=== PATIENT | male | born 1940 | race Caucasian/White ===

== ENCOUNTER 2017-06-26 10:08 | Inpatient (IN) | payer OTHER, MEDICARE ==
[~2017-06-26] VITALS: Ht 180.3 cm; Wt 120.6 kg
[~2017-06-26 10:08] MED LIST: ACT30 PO; ALBU1AER9 PO; ALPR1TAB3 PO; AMLO-110 PO; ASPI-560 PO; ATEN100T8 PO; ATOR-54 PO; FENO145T26 PO; FLUT1SPR12 NAE; GLIM2TAB2 PO; IPRASOL4 INH; MIRT15TA53 PO; PARO1TAB29 PO; SALI-3; SYN100 PO; TRAM-10 PO; UMEC1INH PO
[2017-06-26] MEDS ORDERED: ALBUT/IPRATROP 3MG/0.5MG NEB 3 ML VIAL INH STA ×2 (10:32→13:07)
[2017-06-26] MEDS ORDERED: LEVAQUIN 750MG / 150ML D5W IV STA (10:32)
[2017-06-26 11:12] LABS: BASO % 0.1 %; BASO ABS # 0.02 K/uL (0-0.2); EOS % 0.3 %; EOS ABS # 0.04 K/uL (0-0.5); HEMATOCRIT 32.7 % (42-52); HEMOGLOBIN 10.8 g/dL (14.0-18.0); IG# 0.07 K/uL (0.00-0.02); LYMPH % 14.7 %; LYMPH ABS # 2.06 K/uL (1.2-3.4); MEAN PLATELET VOLUME 10.6 fL (7.4-10.4); MONO % 5.8 %; MONO ABS # 0.81 K/uL (0.11-0.59); NEUT % 78.6 %; NEUT ABS # 11.04 K/uL (1.4-6.5); PLATELET COUNT 298 K/uL (130-400); RED CELL DISTRIBUTION WIDTH CV 13.8 % (11.5-14.5); RED CELL DISTRIBUTION WIDTH SD 47.9 fL (36.4-46.3); WHITE BLOOD COUNT 14.04 K/uL (4.8-10.8)
--- NOTE | 2017-06-26 11:35 | DIAGNOSTIC IMAGING REPORT ---
CHEST ONE VIEW PORTABLE HISTORY: Evaluate Fever/Sepsis COMPARISON: Chest 10/17/2015. FINDINGS: Small patchy density within the left lung base. The right lung is clear. Mild elevation the right hemidiaphragm, unchanged. The heart is normal in size. No pleural effusions. No pneumothorax. IMPRESSION: Small patchy density at the left lung base. This may represent a developing pneumonia. Electronically signed by: Marko France M.D. 06/26/2017 11:33 AM Dictated Date/Time: 06/26/2017 11:31 AM
[2017-06-26 11:43] LABS: ALBUMIN 2.4 gm/dl (3.4-5.0); ALKALINE PHOSPHATASE 53 U/L (45-117); ALT/SGPT 20 U/L (12-78); BLOOD UREA NITROGEN 45 mg/dl (7-18); CALCIUM 9.8 mg/dl (8.5-10.1); CARBON DIOXIDE 31 mmol/L (21-32); CKMB 1.2 ng/ml (0.5-3.6); CREATININE 2.46 mg/dl (0.60-1.40); GLUCOSE 227 mg/dl (70-99); SODIUM 131 mmol/L (136-145); TOTAL PROTEIN 7.2 gm/dl (6.4-8.2)
[2017-06-26] MEDS ORDERED: ASPI81TA28 PO (11:47)
[2017-06-26] MEDS ORDERED: ARFO15NE INH (11:47)
[2017-06-26] MEDS ORDERED: PLMINSR5 INH (11:52)
[2017-06-26] MEDS ORDERED: CHOL1CAP67 PO (11:52)
[2017-06-26] MEDS ORDERED: ALBU18002 INH (11:52)
[2017-06-26] MEDS ORDERED: OXGN (11:52)
[2017-06-26 12:29] LABS: INFLUENZA B ANTIGEN Neg for Influ B (NEG)
[2017-06-26 13:50] VITALS: O2SAT 91; Ht 180.3 cm; Wt 120.6 kg
[2017-06-26] MEDS ORDERED: GLUCOSE 10 TABS/TUBE PO PRN (14:15)
[2017-06-26] MEDS ORDERED: ACETAMINOPHEN 325 MG TAB PO PRN (14:15)
[2017-06-26] MEDS ORDERED: GLUCAGON FOR INJ 1 MG VIAL SQ PRN (14:15)
[2017-06-26] MEDS ORDERED: GLUCOSE 40% GEL 15 GM TUBE PO PRN (14:15)
[2017-06-26] MEDS ORDERED: ONDANSETRON INJ 2 MG/ML 2 ML VIAL IV PRN (14:15)
[2017-06-26 14:22] LABS: INR 1.2 (0.9-1.1); PTT PATIENT 32.4 SECONDS (21.0-31.0)
[2017-06-26 14:24] LABS: POTASSIUM 4.2 mmol/L (3.5-5.1)
[2017-06-26] MEDS ORDERED: LEVOFLOXACIN CONSULT ACTIVE PRN (14:30)
[2017-06-26] MEDS ORDERED: LPT40 PO (14:32)
[2017-06-26] MEDS ORDERED: ALPRAZOLAM 0.5 MG TAB PO PRN (14:45)
[2017-06-26] MEDS ORDERED: ALBUTEROL HFA 8 GM INHALER INH PRN (14:45)
[2017-06-26] MEDS ORDERED: TRAMADOL HCL 50 MG TAB PO PRN (14:45)
--- NOTE | 2017-06-26 14:55 | History and Physical ---
History & Physical Date & Time of Service: Jun 26, 2017 at 14:39 Chief Complaint: Breathing Difficulty Primary Care Physician: Jayla Yu M.D. History of Present Illness Source: patient, clinic records, hospital records Patient is a 76-year-old male with the PMH significant for moderate COPD (on 3L home O2), DM II, HTN, CKD IV and other medical problems listed below presents with worsening SOB 5 days. At baseline, patient is able to ambulate with cane or walker around home without becoming short of breath. Last week, patient developed a productive cough with green sputum and has noticed progressively worsening dyspnea to the point that it occurs at rest. Patient also has had sore throat and hoarseness but denies fever, chills, lightheadedness, malaise or body aches. Has been using all nebulizers with minimal relief, so patient came to ED for further evaluation. En route to hospital, patient received multiple nebulizer treatments and 125 IV Solu-Medrol from EMS. Reports that he is now able to breathe more easily at rest and speak with less hoarseness. Patient reports falling 3 days ago when getting up from couch to use the restroom. Patient landed on a coffee table, bruising his left periorbital area , left knee and right flank. States that he has felt generally weak lately which may be due to being more sedentary. Denies any LOC or residual headaches or confusion. Is not on anticoagulation. Denies dizziness, visual changes, palpitations, chest pain, abdominal pain, nausea, vomiting, bowel or bladder changes, LE swelling or weight gain. Does endorse decreased appetite and p.o. intake over the last few days. In the ED, patient was found to have a leukocytosis of 14 and a small patchy density at the LLB of his lung consistent with PNA on chest x-ray. Lactic acid mildly elevated at 2.2. Past Medical/Surgical History Medical Problems: Medical Problems: (1) AAA (abdominal aortic aneurysm) Permanent Comment: 3.2cm, stable Status: Chronic (2) CKD (chronic kidney disease), stage IV Status: Chronic (3) COPD (chronic obstructive pulmonary disease) Status: Chronic (4) Depression Status: Chronic (5) DM2 (diabetes mellitus, type 2) Status: Chronic (6) HLD (hyperlipidemia) Status: Chronic (7) HTN (hypertension) Status: Chronic (8) Hypothyroidism Status: Chronic (9) JEANNETTE on CPAP Status: Chronic Surgical Problems: (1) H/O colonoscopy Status: Chronic (2) H/O elbow surgery Status: Chronic (3) H/O knee surgery Status: Chronic (4) H/O sinus surgery Status: Chronic Family History Diabetes mellitus Hypertension Social History Smoking Status: Former Smoker Marital Status: Housing status: lives with family Occupational Status: retired Immunizations History of Influenza Vaccine: Yes Allergies Coded Allergies: No Known Allergies (Verified , 06/26/17) Home Medications Scheduled Amlodipine (Norvasc), 5 MG PO DAILY Arformoterol Tartrate (Brovana), 15 MCG INH Q12 Aspirin (Aspirin Ec), 81 MG PO DAILY Atenolol/Chlorthalidone (Tenoretic 100 Mg/25 Mg), 0.5 TAB PO DAILY Atorvastatin (Lipitor), 1 TAB PO DAILY Budesonide (Pulmicort Respules 0.5MG/2ML), 2 ML INH Q12 Cholecalciferol (Vitamin D-3), 1,000 MG PO DAILY Fenofibrate (Tricor ), 145 MG PO DAILY Glimepiride (Glimepiride), 2 MG PO DAILY Home O2 Therapy (Oxygen), 3 LITERS NA PRN Levothyroxine Sodium (Synthroid), 100 MCG PO DAILY Mirtazapine (Mirtazapine), 15 MG PO HS Paroxetine (Paxil), 40 MG PO DAILY Pioglitazone (Actos), 30 MG PO DAILY Scheduled PRN Albuterol Sulfate (Proair Respiclick), 2 PUFFS INH QID PRN for SOB/Wheezing Alprazolam (Xanax), 1 MG PO HS PRN for Sleep Ipratropium-Albuterol (Duoneb), 3 ML INH QID PRN for SOB/Wheezing Tramadol (Ultram), 50 MG PO DAILY PRN for severe pain Review of Systems Ten systems reviewed and negative except as noted in the HPI. Constitutional: + weakness, + fatigue, No fever, No chills Eyes: No worsening of vision, No diplopia ENT: + sore throat, + problem reported (Hoarseness), No hearing loss, No nasal symptoms Respiratory: + cough, + sputum, + wheezing, + shortness of breath, + dyspnea on exertion, + dyspnea at rest, No hemoptysis Cardiovascular: No chest pain, No orthopnea, No PND, No edema, No palpitations Abdomen: No pain, No nausea, No vomiting, No diarrhea, No constipation Musculoskeletal: No joint pain, No muscle pain Genitourinary - Male: No hematuria, No dysuria Neurologic: No memory loss, No paralysis, No weakness, No numbness/tingling Integumentary: + new/changing skin lesions (Bruising from fall, see HPI) Physical Exam Vital Signs Date Time Temp Pulse Resp B/P (MAP) Pulse Ox O2 Delivery O2 Flow Rate FiO2 06/26/17 13:50 91 Nasal Cannula 5.0 06/26/17 13:00 93 28 130/72 91 Nasal Cannula 5.0 06/26/17 11:39 84 20 121/65 96 Nebulizer 06/26/17 10:17 37.0 94 22 149/69 94 Nasal Cannula 3.0 06/26/17 10:17 98 General Appearance: WD/WN, no apparent distress, + obese Head: normocephalic, atraumatic Eyes: normal inspection, sclerae normal, + pertinent finding (Left periorbital ecchymosis with healing laceration, no drainage) ENT: normal ENT inspection, hearing grossly normal, pharynx normal (Dry mucous membranes), + pertinent finding (Hoarseness) Neck: supple, thyroid normal, trachea midline Respiratory/Chest: chest non-tender, no respiratory distress, no accessory muscle use, + wheezing (Diffuse wheezing in bilateral lung ignacio), + pertinent finding (Saturating appropriately on 3L NC ) Cardiovascular: no murmur, normal peripheral pulses, + tachycardia Abdomen/GI: non tender, soft, no organomegaly, + pertinent finding (Ecchymosis on right flank) Back: normal inspection Extremities/Musculoskelatal: normal inspection, no calf tenderness, no pedal edema, + pertinent finding (Healing laceration on left knee) Neurologic/Psych: no motor/sensory deficits, alert, normal mood/affect, oriented x 3 Skin: normal color, warm/dry Diagnostics Laboratory Results Results Past 24 Hours Test 06/26/17 10:57 06/26/17 11:11 06/26/17 11:45 06/26/17 13:45 Range/Units White Blood Count 14.04 4.8-10.8 K/uL Red Blood Count 3.48 4.7-6.1 M/uL Hemoglobin 10.8 14.0-18.0 g/dL Hematocrit 32.7 42-52 % Mean Corpuscular Volume 94.0 80-100 fL Mean Corpuscular Hemoglobin 31.0 25-34 pg Mean Corpuscular Hemoglobin Concent 33.0 32-36 g/dl Platelet Count 298 130-400 K/uL Mean Platelet Volume 10.6 7.4-10.4 fL Neutrophils (%) (Auto) 78.6 % Lymphocytes (%) (Auto) 14.7 % Monocytes (%) (Auto) 5.8 % Eosinophils (%) (Auto) 0.3 % Basophils (%) (Auto) 0.1 % Neutrophils # (Auto) 11.04 1.4-6.5 K/uL Lymphocytes # (Auto) 2.06 1.2-3.4 K/uL Monocytes # (Auto) 0.81 0.11-0.59 K/uL Eosinophils # (Auto) 0.04 0-0.5 K/uL Basophils # (Auto) 0.02 0-0.2 K/uL RDW Standard Deviation 47.9 36.4-46.3 fL RDW Coefficient of Variation 13.8 11.5-14.5 % Immature Granulocyte % (Auto) 0.5 % Immature Granulocyte # (Auto) 0.07 0.00-0.02 K/uL Sodium Level 131 136-145 mmol/L Potassium Level 3.5-5.1 mmol/L Chloride Level 93 98-107 mmol/L Carbon Dioxide Level 31 21-32 mmol/L Anion Gap 7.0 3-11 mmol/L Blood Urea Nitrogen 45 7-18 mg/dl Creatinine 2.46 0.60-1.40 mg/dl Est Creatinine Clear Calc Drug Dose 33.6 ml/min Estimated GFR () 28.2 Estimated GFR (Non- 24.3 BUN/Creatinine Ratio 18.3 10-20 Random Glucose 227 70-99 mg/dl Calcium Level 9.8 8.5-10.1 mg/dl Total Bilirubin 0.8 0.2-1 mg/dl Direct Bilirubin 0-0.2 mg/dl Aspartate Amino Transf (AST/SGOT) 15-37 U/L Alanine Aminotransferase (ALT/SGPT) 20 12-78 U/L Alkaline Phosphatase 53 45-117 U/L Total Creatine Kinase 39-308 U/L Creatine Kinase MB 1.2 0.5-3.6 ng/ml Creatine Kinase MB Ratio 0-3.0 Troponin I < 0.015 0-0.045 ng/ml Total Protein 7.2 6.4-8.2 gm/dl Albumin 2.4 3.4-5.0 gm/dl Arterial Blood pH 7.38 7.35-7.45 Arterial Blood Partial Pressure CO2 51 35-46 mmHg Arterial Blood Partial Pressure O2 65 80-95 mm/Hg Arterial Blood HCO3 29 19-24 mmol/L Arterial Blood Oxygen Saturation 90.3 90-95 % Arterial Blood Base Excess 3.5 -9-1.8 mEq/L Arterial Blood Gas Delivery 3L Wes Test POS POS Influenza Type A Antigen Neg for Influ A NEG Influenza Type B Antigen Neg for Influ B NEG Lactic Acid Level 2.2 0.4-2.0 mmol/L Test 06/26/17 13:46 Range/Units Prothrombin Time 12.7 9.0-12.0 SECONDS Prothromb Time International Ratio 1.2 0.9-1.1 Activated Partial Thromboplast Time 32.4 21.0-31.0 SECONDS Partial Thromboplastin Ratio 1.2 Potassium Level 4.2 3.5-5.1 mmol/L Direct Bilirubin 0.3 0-0.2 mg/dl Aspartate Amino Transf (AST/SGOT) 20 15-37 U/L Total Creatine Kinase 63 39-308 U/L Microbiology Results 06/26/17 Blood Culture, Received Pending 06/26/17 Blood Culture, Received Pending Diagnostic Radiology CXR: IMPRESSION: Small patchy density at the left lung base. This may represent a developing pneumonia. EKG Sinus rhythm with sinus arrhythmia with occasional Premature ventricular complexes Nonspecific ST abnormality Impression Assessment and Plan Patient is a 76-year-old male with the PMH significant for moderate COPD (on 3L home O2), DM II, HTN, CKD IV and other medical problems listed below presents with worsening SOB 5 days and was found to have LLL PNA. SOB: - 2/2 community acquired PNA, COPD exacerbation -Chronic respiratory failure requiring 3L NC at home -Cont supplemental O2 Community acquired PNA: -Leukocytosis of 14, HR >90 -Technically meets SIRs criteria and sepsis with known pulm infection -However, HR likely elevated from multiple duoneb treatments -Non-toxic in appearance -Lactic acid mildly elevated at 2.2 -IVF resuscitation and repeat lactate -CXR with small patchy density at LLB consistent with PNA -Cont renally dosed levaquin -Blood, sputum cultures pending -Xopenex nebs COPD exacerbation: -Given 125mg IV solumedrol by EMS Continue 40mg Q6 solumedrol -Cont home Brovana neb, albuterol inhaler PRN -Hold pulmicort while giving systemic steroids -Xopenex nebs Hyperglycemia: -In setting of DM II, high dose IV steroids -Hgb A1c of 6 in Mar 2017 -Hold oral agents -SSI per protocol (stress dosed) -BSG checks AC HS Recent mechanical fall: -Denies LOC, headaches, confusion following event 3 days ago -Ecchymoses, laceration healing appropriately -Likely due to deconditioning -PT/OT for eval HTN: -Normotensive -Continue amlodipine, atenolol-chlorthalidone CKD IV: -Cr of 2.46 -Close to baseline (2.3-2.5) -Monitor Mood disorder: -Cont Paxil, xanax PRN HLD: -Cont statin Hypothyroidism: -Cont levothyroxine JEANNETTE: -CPAP HS H/o AAA: -Stable at 3.2 cm Vit D deficiency: -Cont supplement DVT Ppx: SCDs in setting of recent fall Code status: FULL PCP: Aimee Dispo: Admitted to telemetry. Discharge planning ordered. Patient seen in collaboration with Dr. Perez. Please see addendum. ADDENDUM: I have seen and examined the patient and have discussed the case with the provider above. I agree with the assessment and plan as stated. Will also treat him for bacterial conjunctivitis bilaterally, erythromycin has been ordered. DO Chris Advanced Directives Existing Living Will: No Existing Power of Terrazzo Polisher: No Resuscitation Status VTE Prophylaxis Will order VTE Prophylaxis: Yes
--- NOTE | 2017-06-26 15:05 | EMERGENCY ROOM VISIT NOTE ---
History Report prepared by Quin: Diane Saldivar Under the Supervision of: Dr. Sidney Agarwal D.O. First contact with patient: 10:24 Chief Complaint: RESPIRATORY PROBLEMS Stated Complaint: BREATHING DIFFICULTY Nursing Triage Summary: pt to the ED with c/o SOB and producitve cough with green sputum for the past 3 days. pt wears 3lnc baseline pt also fell 3 days ago and states that he stumbled and fell, no LOC, no reports of blood thinners. pt has cut to left side of face with bruising to the periorbital region and a bruise to the right side of abd. 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 He presents to the ED by EMS. He has had a cough producing green sputum. He has a history of COPD. He fell 3 days ago and hit his head. He did not see a doctor after his fall. He has had some fever. He has not been on antibiotics recently. He wears 3 L of oxygen normally. Source of History: patient Onset: 2-3 days ago Position: other (breathing) Quality: other (SOB) Timing: other (persistent) Associated Symptoms: + fevers, + cough Review of Systems See HPI for pertinent positives & negatives. A total of 10 systems reviewed and were otherwise negative. Past Medical & Surgical Medical Problems: (1) AAA (abdominal aortic aneurysm) (2) CKD (chronic kidney disease), stage IV (3) COPD (chronic obstructive pulmonary disease) (4) COPD exacerbation (5) Depression (6) DM2 (diabetes mellitus, type 2) (7) HLD (hyperlipidemia) (8) HTN (hypertension) (9) Hypothyroidism (10) JEANNETTE on CPAP (11) PNA (pneumonia) Surgical Problems: (1) H/O colonoscopy (2) H/O elbow surgery (3) H/O knee surgery (4) H/O sinus surgery Family History Diabetes mellitus Hypertension Social History Smoking Status: Former Smoker Marital Status: Housing Status: lives with significant other Occupation Status: retired Current/Historical Medications Scheduled Amlodipine (Norvasc), 5 MG PO DAILY Arformoterol Tartrate (Brovana), 15 MCG INH Q12 Aspirin (Aspirin Ec), 81 MG PO DAILY Atenolol/Chlorthalidone (Tenoretic 100 Mg/25 Mg), 0.5 TAB PO DAILY Atorvastatin (Lipitor), 1 TAB PO DAILY Budesonide (Pulmicort Respules 0.5MG/2ML), 2 ML INH Q12 Cholecalciferol (Vitamin D-3), 1,000 MG PO DAILY Fenofibrate (Tricor ), 145 MG PO DAILY Glimepiride (Glimepiride), 2 MG PO DAILY Home O2 Therapy (Oxygen), 3 LITERS NA PRN Levothyroxine Sodium (Synthroid), 100 MCG PO DAILY Mirtazapine (Mirtazapine), 15 MG PO HS Paroxetine (Paxil), 40 MG PO DAILY Pioglitazone (Actos), 30 MG PO DAILY Scheduled PRN Albuterol Sulfate (Proair Respiclick), 2 PUFFS INH QID PRN for SOB/Wheezing Alprazolam (Xanax), 1 MG PO HS PRN for Sleep Ipratropium-Albuterol (Duoneb), 3 ML INH QID PRN for SOB/Wheezing Tramadol (Ultram), 50 MG PO DAILY PRN for severe pain Allergies Coded Allergies: No Known Allergies (Verified , 06/26/17) Physical Exam Vital Signs Date Time Temp Pulse Resp B/P (MAP) Pulse Ox O2 Delivery O2 Flow Rate FiO2 06/26/17 14:52 91 20 120/64 90 Nasal Cannula 5.0 06/26/17 13:50 91 Nasal Cannula 5.0 06/26/17 13:00 93 28 130/72 91 Nasal Cannula 5.0 06/26/17 11:39 84 20 121/65 96 Nebulizer 06/26/17 10:17 37.0 94 22 149/69 94 Nasal Cannula 3.0 06/26/17 10:17 98 Physical Exam CONSTITUTIONAL/VITAL SIGNS: Reviewed / noted above. GENERAL: Non-toxic in appearance. INTEGUMENTARY: Warm, dry, and [place]. HEAD: Left periorbital ecchymosis and a healing laceration to the left medial supraorbital area. EYES: without scleral icterus. ENT/OROPHARYNX: clear and moist. LYMPHADENOPATHY/NECK: Is supple without lymphadenopathy or meningismus. RESPIRATORY: Scattered wheezes and rhonchi left greater than right. CARDIOVASCULAR: Regular rate and rhythm. GI/ABDOMEN: Soft and nontender. No organomegaly or pulsatile mass. No rebound or guarding. Normal bowel sounds. EXTREMITIES: Warm and well perfused. BACK: No CVA tenderness. NEUROLOGICAL: Intact without focal deficits. PSYCHIATRIC: normal affect. MUSCULOSKELETAL: Normally developed with good muscle tone. Medical Decision & Procedures ER Provider Diagnostic Interpretation: X ray results and stated below per my interpretation and radiology interpretation. CHEST ONE VIEW PORTABLE HISTORY: Evaluate Fever/Sepsis COMPARISON: Chest 10/17/2015. FINDINGS: Small patchy density within the left lung base. The right lung is clear. Mild elevation the right hemidiaphragm, unchanged. The heart is normal in size. No pleural effusions. No pneumothorax. IMPRESSION: Small patchy density at the left lung base. This may represent a developing pneumonia. Electronically signed by: Marko Farnce M.D. 06/26/2017 11:33 AM Dictated Date/Time: 06/26/2017 11:31 AM Laboratory Results 06/26/17 10:57 Red Blood Count 3.48, Mean Corpuscular Volume 94.0, Mean Corpuscular Hemoglobin 31.0, Mean Corpuscular Hemoglobin Concent 33.0, Mean Platelet Volume 10.6, Neutrophils (%) (Auto) 78.6, Lymphocytes (%) (Auto) 14.7, Monocytes (%) (Auto) 5.8, Eosinophils (%) (Auto) 0.3, Basophils (%) (Auto) 0.1, Neutrophils # (Auto) 11.04, Lymphocytes # (Auto) 2.06, Monocytes # (Auto) 0.81, Eosinophils # (Auto) 0.04, Basophils # (Auto) 0.02 06/26/17 10:57 06/26/17 13:46 Test 06/26/17 10:57 06/26/17 11:11 06/26/17 11:45 06/26/17 13:45 White Blood Count 14.04 K/uL (4.8-10.8) Red Blood Count 3.48 M/uL (4.7-6.1) Hemoglobin 10.8 g/dL (14.0-18.0) Hematocrit 32.7 % (42-52) Mean Corpuscular Volume 94.0 fL (80-100) Mean Corpuscular Hemoglobin 31.0 pg (25-34) Mean Corpuscular Hemoglobin Concent 33.0 g/dl (32-36) Platelet Count 298 K/uL (130-400) Mean Platelet Volume 10.6 fL (7.4-10.4) Neutrophils (%) (Auto) 78.6 % Lymphocytes (%) (Auto) 14.7 % Monocytes (%) (Auto) 5.8 % Eosinophils (%) (Auto) 0.3 % Basophils (%) (Auto) 0.1 % Neutrophils # (Auto) 11.04 K/uL (1.4-6.5) Lymphocytes # (Auto) 2.06 K/uL (1.2-3.4) Monocytes # (Auto) 0.81 K/uL (0.11-0.59) Eosinophils # (Auto) 0.04 K/uL (0-0.5) Basophils # (Auto) 0.02 K/uL (0-0.2) RDW Standard Deviation 47.9 fL (36.4-46.3) RDW Coefficient of Variation 13.8 % (11.5-14.5) Immature Granulocyte % (Auto) 0.5 % Immature Granulocyte # (Auto) 0.07 K/uL (0.00-0.02) Anion Gap 7.0 mmol/L (3-11) Est Creatinine Clear Calc Drug Dose 33.6 ml/min Estimated GFR () 28.2 Estimated GFR (Non- 24.3 BUN/Creatinine Ratio 18.3 (10-20) Calcium Level 9.8 mg/dl (8.5-10.1) Total Bilirubin 0.8 mg/dl (0.2-1) Alanine Aminotransferase (ALT/SGPT) 20 U/L (12-78) Alkaline Phosphatase 53 U/L (45-117) Creatine Kinase MB 1.2 ng/ml (0.5-3.6) Creatine Kinase MB Ratio (0-3.0) Troponin I < 0.015 ng/ml (0-0.045) Total Protein 7.2 gm/dl (6.4-8.2) Albumin 2.4 gm/dl (3.4-5.0) Arterial Blood pH 7.38 (7.35-7.45) Arterial Blood Partial Pressure CO2 51 mmHg (35-46) Arterial Blood Partial Pressure O2 65 mm/Hg (80-95) Arterial Blood HCO3 29 mmol/L (19-24) Arterial Blood Oxygen Saturation 90.3 % (90-95) Arterial Blood Base Excess 3.5 mEq/L (-9-1.8) Arterial Blood Gas Delivery 3L Wes Test POS (POS) Influenza Type A Antigen Neg for Influ A (NEG) Influenza Type B Antigen Neg for Influ B (NEG) Lactic Acid Level 2.2 mmol/L (0.4-2.0) Test 06/26/17 13:46 Prothrombin Time 12.7 SECONDS (9.0-12.0) Prothromb Time International Ratio 1.2 (0.9-1.1) Activated Partial Thromboplast Time 32.4 SECONDS (21.0-31.0) Partial Thromboplastin Ratio 1.2 Direct Bilirubin 0.3 mg/dl (0-0.2) Aspartate Amino Transf (AST/SGOT) 20 U/L (15-37) Total Creatine Kinase 63 U/L (39-308) Laboratory results as stated above per my review. Medications Administered Medications (Trade) Dose Ordered Sig/Aleksey Route Start Time Stop Time Status Last Admin Dose Admin Albuterol/ Ipratropium (Duoneb) 3 ml NOW STAT INH 06/26/17 10:32 06/26/17 10:36 DC 06/26/17 11:33 3 ML Levofloxacin (Levaquin / D5W) 750 mg NOW STAT IV 06/26/17 10:32 06/26/17 10:36 DC 06/26/17 11:33 750 MG Albuterol/ Ipratropium (Duoneb) 3 ml NOW STAT INH 06/26/17 13:07 06/26/17 13:08 DC 06/26/17 13:35 3 ML ECG Per My Interpretation Indication: SOB/dyspnea Rate (beats per minute): 91 Rhythm: sinus rhythm Findings: PVC, other (no ST elevation) ED Course 1027: Previous medical records were reviewed. The patient was evaluated in room B7. A complete history and physical examination was performed. 1032: Levofloxacin 750 mg IV, Duoneb 3 ml INH. 1307: Duoneb 3 ml INH. 1313: I discussed the patient's case with Dolores Hill PA-C [facility]ist. The patient will be evaluated for further treatment and disposition. Medical Decision Differentials considered include acute myocardial infarction, acute coronary syndrome, myocarditis, pericarditis, pericardial effusions /tamponade, esophageal perforation, pulmonary embolism, pneumonia, pneumothorax, cardiomyopathy, congestive heart, anemia, and COPD/asthma exacerbation. This is a 76-year-old male who presents to the ED with a chief complaint of shortness of breath. The patient apparently fell 3 days ago due to weakness but has had a progressive cough for the past several days. He reports it is productive for green sputum. The patient has had increased shortness of breath overnight and today. He does have a history of COPD and is chronically on 3 L of nasal cannula oxygen. His initial oxygen saturations on 3 L was adequate. During his ED stay, his oxygen saturations on the 3 L dropped to the mid to high 80s. The patient's exam as noted above. There is some bilateral rhonchi with some scattered wheezes. His x-ray reveals a left lung base pneumonia and his white blood cell count was 14. Flu swab was negative, troponin was negative , BUN and creatinine is elevated. This is slightly above his baseline. ABG reveals a normal acid-base status with a PCO2 of 51 and PaO2 of 65. Patient was treated with a couple of DuoNeb treatments and IV Levaquin. Because of his hypoxia on his baseline oxygen, the patient will be admitted for further evaluation and care per Head Trauma GCS Score: 15 Medication Reconcilliation Current Medication List: was personally reviewed by me Blood Pressure Screening Patient's blood pressure: Normal blood pressure Blood pressure disposition: Did not require urgent referral Consults Time Called: 1300 Consulting Physician: Dolores Hill PA-C [facility] hospitalist Returned Call: [phone] Discussed the patient's case. The patient will be evaluated for further treatment and disposition. Impression Primary Impression: Pneumonia Additional Impression: Hypoxia Scribe Attestation The scribe's documentation has been prepared under my direction and personally reviewed by me in its entirety. I confirm that the note above accurately reflects all work, treatment, procedures, and medical decision making performed by me. Departure Information Dispostion Being Evaluated By Hospitalist Referrals Jayla Yu M.D. (PCP) Patient Instructions My [facility] Problem Qualifiers
[2017-06-26 15:30] VITALS: BP 144/80; PULSE 88; TEMP 36.5; O2SAT 96
[2017-06-26 16:00] VITALS: O2SAT 96
[2017-06-26] MEDS ORDERED: SODIUM CHLORIDE 0.9% 1000ML 1,000 ML IV SCH (16:00)
[2017-06-26] MEDS: METHYLPREDNISOLONE IV 40 MG in SYRINGE 0 ML IV SCH ×3 (16:36→23:58)
[2017-06-26] MEDS: INSULIN ASPART 100 UNITS/ML 3 ML PEN SC SCH ×2 (17:35→21:22)
[2017-06-26] MEDS ORDERED: METHYLPREDNISOLONE IV 40 MG in SYRINGE 0 ML IV SCH (18:00)
[2017-06-26 18:24] LABS: INFLUENZA A PCR Neg for Influ A (NEG); INFLUENZA B PCR Neg for Influ B (NEG)
[2017-06-26] MEDS: LEVALBUTEROL 1.25MG/3ML NEB INH SCH (19:34)
[2017-06-26 19:35] VITALS: BP 127/82; PULSE 83; PULSE 85; TEMP 36.6; O2SAT 92; O2SAT 93
[2017-06-26] MEDS: ARFORMOTEROL TART 15MCG/2ML VIAL INH SCH (21:00)
[2017-06-26] MEDS: MIRTAZAPINE SOLTAB 15 MG PO SCH (21:19)
[2017-06-26] MEDS: INSULIN GLARGINE SOLOSTAR 100 UNITS/ML 3 ML PEN SC SCH (21:23)
[2017-06-26] MEDS: ERYTHROMYCIN OP OINT 5 MG/GM 3.5 GM TUBE OPB SCH (22:26)
[2017-06-26 23:34] VITALS: BP 121/70; PULSE 85; TEMP 36.4; O2SAT 95
[2017-06-27] VITALS (13 sets, daily range): BP systolic 118–158; BP diastolic 54–79; PULSE 63–84; TEMP 36.3–36.8; O2SAT 81–96
[2017-06-27] MEDS ORDERED: INSULIN ASPART 100 UNITS/ML 3 ML PEN SC ONE
[2017-06-27] MEDS: LEVALBUTEROL 1.25MG/3ML NEB INH SCH ×4 (02:35→19:05)
[2017-06-27 06:02] LABS: HEMATOCRIT 32.4 % (42-52); HEMOGLOBIN 11.1 g/dL (14.0-18.0); MEAN CELL VOLUME 93.6 fL (80-100); MEAN CORPUSCULAR HEMOGLOBIN 32.1 pg (25-34); MEAN CORPUSCULAR HGB CONC 34.3 g/dl (32-36); MEAN PLATELET VOLUME 10.8 fL (7.4-10.4); PLATELET COUNT 322 K/uL (130-400); RED CELL DISTRIBUTION WIDTH CV 13.7 % (11.5-14.5); RED CELL DISTRIBUTION WIDTH SD 47.1 fL (36.4-46.3); WHITE BLOOD COUNT 18.97 K/uL (4.8-10.8)
[2017-06-27 06:29] LABS: CALCIUM 9.3 mg/dl (8.5-10.1); CREATININE 2.85 mg/dl (0.60-1.40); HEMOGLOBIN A1C 6.4 % (4.5-5.6); POTASSIUM 3.9 mmol/L (3.5-5.1)
[2017-06-27] MEDS: LEVOTHYROXINE 100 MCG TAB PO SCH (06:36)
[2017-06-27] MEDS: METHYLPREDNISOLONE IV 40 MG in SYRINGE 0 ML IV SCH ×3 (06:36→21:31)
[2017-06-27] MEDS: ARFORMOTEROL TART 15MCG/2ML VIAL INH SCH ×2 (07:13→19:05)
--- NOTE | 2017-06-27 07:27 | DIAGNOSTIC IMAGING REPORT ---
ORBITS BILATERAL MIN 4 VIEWS CLINICAL HISTORY: 76 years-old Male presenting with r/o fracture, foreign body . TECHNIQUE: 5 views of the orbits were obtained. COMPARISON: None. FINDINGS: No radiopaque intraorbital foreign body. Bony orbits grossly intact. Paranasal sinuses grossly clear. Visualized portion of the calvarium intact. The patient is edentulous. IMPRESSION: No intraorbital metallic foreign body to preclude MRI exam. Electronically signed by: Humberto Piña M.D. 06/27/2017 7:25 AM Dictated Date/Time: 06/27/2017 7:24 AM
[2017-06-27] MEDS: CHOLECALCIFEROL 1000 INTER.UNIT TAB PO SCH (08:42)
[2017-06-27] MEDS: PAROXETINE 20 MG TAB PO SCH (08:43)
[2017-06-27] MEDS: ASPIRIN 81 MG ECTAB PO SCH (08:43)
[2017-06-27] MEDS: FENOFIBRATE 145 MG TAB PO SCH (08:43)
[2017-06-27] MEDS: AMLODIPINE BESYLATE 5 MG TAB PO SCH (08:44)
[2017-06-27] MEDS: ATORVASTATIN 40 MG TAB PO SCH (08:44)
[2017-06-27] MEDS: ERYTHROMYCIN OP OINT 5 MG/GM 3.5 GM TUBE OPB SCH ×4 (08:45→21:30)
[2017-06-27] MEDS: INSULIN ASPART 100 UNITS/ML 3 ML PEN SC SCH ×4 (08:50→21:35)
[2017-06-27] MEDS: INSULIN GLARGINE SOLOSTAR 100 UNITS/ML 3 ML PEN SC SCH (08:50)
[2017-06-27] MEDS ORDERED: HYDROCHLOROTHIAZIDE 25 MG TAB PO SCH (09:00)
--- NOTE | 2017-06-27 11:11 | Progress Note ---
Medicine Progress Note Date & Time of Visit: Jun 27, 2017 at 10:34. Subjective Pt was seen and examined Lying in bed with no distress he said that he feels much better Pt said that his breathing improves Denies any chest pain, palpitation, dizziness and SOB Objective Last 8 Hrs Date Time Temp Pulse Resp B/P (MAP) Pulse Ox O2 Delivery O2 Flow Rate FiO2 06/27/17 08:00 92 Nasal Cannula 5.0 06/27/17 07:16 36.4 81 20 150/76 (100) 93 Nasal Cannula 5.0 06/27/17 07:15 82 16 90 Nasal Cannula 5.0 06/27/17 04:00 Nasal Cannula 5.0 06/27/17 03:45 36.3 63 20 127/74 (91) 91 Nasal Cannula 5.0 Physical Exam: General- no acute distress Head- atraumatic Eyes- PERRL, EOMI, bruises around left eye ENT- oropharynx clear Neck- supple, no JVD Lungs- +Wheezing Heart- regular rhythm Abdomen- normal bowel sounds, soft Extremities- no calf tenderness Neuro- alert, oriented, PERRL, EOMI Skin- warm & dry Laboratory Results: Last 24 Hours Test 06/26/17 10:57 06/26/17 11:11 06/26/17 11:45 06/26/17 13:45 White Blood Count 14.04 K/uL Red Blood Count 3.48 M/uL Hemoglobin 10.8 g/dL Hematocrit 32.7 % Mean Corpuscular Volume 94.0 fL Mean Corpuscular Hemoglobin 31.0 pg Mean Corpuscular Hemoglobin Concent 33.0 g/dl Platelet Count 298 K/uL Mean Platelet Volume 10.6 fL Neutrophils (%) (Auto) 78.6 % Lymphocytes (%) (Auto) 14.7 % Monocytes (%) (Auto) 5.8 % Eosinophils (%) (Auto) 0.3 % Basophils (%) (Auto) 0.1 % Neutrophils # (Auto) 11.04 K/uL Lymphocytes # (Auto) 2.06 K/uL Monocytes # (Auto) 0.81 K/uL Eosinophils # (Auto) 0.04 K/uL Basophils # (Auto) 0.02 K/uL RDW Standard Deviation 47.9 fL RDW Coefficient of Variation 13.8 % Immature Granulocyte % (Auto) 0.5 % Immature Granulocyte # (Auto) 0.07 K/uL Sodium Level 131 mmol/L Potassium Level mmol/L Chloride Level 93 mmol/L Carbon Dioxide Level 31 mmol/L Anion Gap 7.0 mmol/L Blood Urea Nitrogen 45 mg/dl Creatinine 2.46 mg/dl Est Creatinine Clear Calc Drug Dose 33.6 ml/min Estimated GFR () 28.2 Estimated GFR (Non- 24.3 BUN/Creatinine Ratio 18.3 Random Glucose 227 mg/dl Calcium Level 9.8 mg/dl Total Bilirubin 0.8 mg/dl Direct Bilirubin mg/dl Aspartate Amino Transf (AST/SGOT) U/L Alanine Aminotransferase (ALT/SGPT) 20 U/L Alkaline Phosphatase 53 U/L Total Creatine Kinase U/L Creatine Kinase MB 1.2 ng/ml Creatine Kinase MB Ratio Troponin I < 0.015 ng/ml Total Protein 7.2 gm/dl Albumin 2.4 gm/dl Arterial Blood pH 7.38 Arterial Blood Partial Pressure CO2 51 mmHg Arterial Blood Partial Pressure O2 65 mm/Hg Arterial Blood HCO3 29 mmol/L Arterial Blood Oxygen Saturation 90.3 % Arterial Blood Base Excess 3.5 mEq/L Arterial Blood Gas Delivery 3L Wes Test POS Influenza Type A Antigen Neg for Influ A Influenza Type B Antigen Neg for Influ B Lactic Acid Level 2.2 mmol/L Procalcitonin 0.24 ng/ml Test 06/26/17 13:46 06/26/17 16:36 06/26/17 17:10 06/26/17 18:50 Prothrombin Time 12.7 SECONDS Prothromb Time International Ratio 1.2 Activated Partial Thromboplast Time 32.4 SECONDS Partial Thromboplastin Ratio 1.2 Potassium Level 4.2 mmol/L Direct Bilirubin 0.3 mg/dl Aspartate Amino Transf (AST/SGOT) 20 U/L Total Creatine Kinase 63 U/L Bedside Glucose 347 mg/dl Influenza Type A (RT-PCR) Neg for Influ A Influenza Type B (RT-PCR) Neg for Influ B Lactic Acid Level 1.7 mmol/L Test 06/26/17 20:13 06/26/17 23:54 06/27/17 05:46 06/27/17 07:33 Bedside Glucose 322 mg/dl 270 mg/dl 261 mg/dl White Blood Count 18.97 K/uL Red Blood Count 3.46 M/uL Hemoglobin 11.1 g/dL Hematocrit 32.4 % Mean Corpuscular Volume 93.6 fL Mean Corpuscular Hemoglobin 32.1 pg Mean Corpuscular Hemoglobin Concent 34.3 g/dl RDW Standard Deviation 47.1 fL RDW Coefficient of Variation 13.7 % Platelet Count 322 K/uL Mean Platelet Volume 10.8 fL Sodium Level 132 mmol/L Potassium Level 3.9 mmol/L Chloride Level 94 mmol/L Carbon Dioxide Level 30 mmol/L Anion Gap 8.0 mmol/L Blood Urea Nitrogen 55 mg/dl Creatinine 2.85 mg/dl Est Creatinine Clear Calc Drug Dose 29.0 ml/min Estimated GFR () 23.6 Estimated GFR (Non- 20.4 BUN/Creatinine Ratio 19.4 Random Glucose 233 mg/dl Estimated Average Glucose 137 mg/dl Hemoglobin A1c 6.4 % Calcium Level 9.3 mg/dl Date/Time Source Procedure Growth Status 06/26/17 11:11 Blood Blood Culture Pending Received 06/26/17 10:57 Blood Blood Culture Pending Received Assessment & Plan Patient is a 76-year-old male with the PMH significant for moderate COPD (on 3L home O2), DM II, HTN, CKD IV and other medical problems listed below presents with worsening SOB 5 days and was found to have LLL PNA. Worsening Dyspnea Pneumonia COPD exacerbation Met SIRS criteria on admission with elevated WBC and RR 28 CXR showed small patchy density at the left lung base Lactic acid trending down to 1.7 Influenza abx and ag negative Received IV levaquin q48H and solumedrol 125mg IV on admission Continue levaquin and duoneb treatment and Brovana neb, albuterol inhaler PRN Solumedrol taper to 40mg TID Continue supplemental O2 Will add guaifenesin for the cough Blood cx pending Hyperglycemia In setting of DM II, high dose IV steroids Recent Hgb A1c of 6.4 (06/27) Hold oral agents SSI per protocol (stress dosed) Pharmacy consulting for glycemic management S/P mechanical fall Weakness Denies LOC, headaches, confusion following event 3 days ago Ecchymoses, laceration healing appropriately PT/OT for eval Fall precaution HTN: Continue amlodipine, atenolol chlorthalidone was replaced to HCTZ, Will hold HCTZ due to elevate creatine Monitor BP ACUTE ON CKD IV Possible related to poor intake Cr of 2.46 on admission, creatine baseline (2.3-2.5) Creatine increased to 2.8 Received 1L IVF on admission Will give [id number] IVF Hold HCTZ for now Avoid nephrotoxic agents Mood disorder Continue Paxil, xanax PRN Stable HLD Continue statin Hypothyroidism Continue levothyroxine TSH WNL JEANNETTE: CPAP HS H/o AAA: Stable at 3.2 cm Vit D deficiency: Cont supplement DVT Ppx: SCDs Will start on heparin subq Code status: FULL CODE Disposition Will discharge once medically stable Current Inpatient Medications: Current Inpatient Medications Medications (Trade) Dose Ordered Sig/Aleksey Route Start Time Stop Time Status Last Admin Dose Admin Acetaminophen (Tylenol Tab) 650 mg Q4H PRN PO 06/26/17 14:15 07/26/17 14:14 Ondansetron HCl (Zofran Inj) 4 mg Q6H PRN IV 06/26/17 14:15 07/26/17 14:14 Insulin Glargine (Lantus Solostar Pen) 31 units Q12 SC 06/26/17 21:00 07/26/17 20:59 06/27/17 08:50 31 UNITS Insulin Aspart (novoLOG ASPART) SLIDING SCALE If C... ACHS SC 06/26/17 16:00 07/26/17 15:59 06/27/17 08:50 13 UNITS Glucose (Glucose 40% Gel) 15-30 GRAMS 15 GRAMS... UD PRN PO 06/26/17 14:15 07/26/17 14:14 Glucose (Glucose Chew Tab) 4-8 Tablets 4 Tabl... UD PRN PO 06/26/17 14:15 07/26/17 14:14 Dextrose (Dextrose 50% 50ML Syringe) 25-50ML OF 50% DW IV FOR... UD PRN IV 06/26/17 14:15 07/26/17 14:14 Glucagon (Glucagon Inj) 1 mg UD PRN SQ 06/26/17 14:15 07/26/17 14:14 Levofloxacin (Consult) 1 ea UD PRN N/A 06/26/17 14:30 07/26/17 14:29 Levalbuterol (Xopenex 1.25MG/ 3ML Neb) 1.25 mg Q6R INH 06/26/17 15:00 07/26/17 14:59 06/26/17 19:34 1.25 MG Alprazolam (Xanax Tab) 1 mg HS PRN PO 06/26/17 14:45 07/26/17 14:44 Amlodipine Besylate (Norvasc Tab) 5 mg DAILY PO 06/27/17 09:00 07/27/17 08:59 06/27/17 08:44 5 MG Aspirin (Ecotrin Tab) 81 mg DAILY PO 06/27/17 09:00 07/27/17 08:59 06/27/17 08:43 81 MG Atorvastatin Calcium (Lipitor Tab) 40 mg DAILY PO 06/27/17 09:00 07/27/17 08:59 06/27/17 08:44 40 MG Fenofibrate (Tricor Tab) 145 mg DAILY PO 06/27/17 09:00 07/27/17 08:59 06/27/17 08:43 145 MG Levothyroxine Sodium (Synthroid Tab) 100 mcg DAILYBB PO 06/27/17 06:30 07/27/17 06:29 06/27/17 06:36 100 MCG Mirtazapine (Remeron Solutab) 15 mg HS PO 06/26/17 21:00 07/26/17 20:59 06/26/17 21:19 15 MG Paroxetine HCl (pAXil TAB) 40 mg DAILY PO 06/27/17 09:00 07/27/17 08:59 06/27/17 08:43 40 MG Tramadol HCl (Ultram Tab) 50 mg DAILY PRN PO 06/26/17 14:45 07/26/17 14:44 Albuterol (Ventolin Hfa Inhaler) 2 puffs QID PRN INH 06/26/17 14:45 07/26/17 14:44 Atenolol (Tenormin Tab) 50 mg DAILY PO 06/27/17 09:00 07/27/17 08:59 06/27/17 08:41 50 MG Cholecalciferol (Vitamin D Tab) 1,000 inter.unit DAILY PO 06/27/17 09:00 07/27/17 08:59 06/27/17 08:42 1,000 INTER.UNIT Levofloxacin 750 mg/Prmx 150 ml @ 100 mls/hr Q48H IV 06/28/17 12:00 07/03/17 11:59 Hydrochlorothiazide (Hydrochlorothiazide Tab) 12.5 mg DAILY PO 06/27/17 09:00 07/27/17 08:59 06/27/17 08:41 12.5 MG Arformoterol Tartrate (Brovana 15MCG/ 2ML Neb Soln) 15 mcg Q12R INH 06/26/17 21:00 07/26/17 20:59 06/27/17 07:13 15 MCG Erythromycin (Erythromycin Oph Oint) 1 appln QID OPB 06/26/17 21:15 07/06/17 21:14 06/27/17 08:45 1 APPLN Methylprednisolone Sodium Succinate 40 mg/Syringe 0.64 ml @ 1.5 mls/min Q8 IV 06/27/17 14:00 07/26/17 15:59
[2017-06-27] MEDS ORDERED: GUAIFENESIN 200 MG TAB PO PRN (11:15)
[2017-06-27] MEDS ORDERED: SODIUM CHLORIDE 0.9% 500ML 500 ML IV ONE (11:30)
[2017-06-27] MEDS ORDERED: PHARMACY GLYCEMIC MGMT CONSULT PRN (12:28)
--- NOTE | 2017-06-27 15:11 | Pharmacy Progress Note ---
Glycemic Control Intl Consult Date of Service Jun 27, 2017. Scope Glycemic Pharmacist consulted by Dr Asencio on 06/27/17 for glycemic control and to write orders per [facility] inpatient glycemic control protocol Objective Weight (Kilograms): 119.000 Accuchecks BSG (last 24hrs): Test 06/26/17 16:36 06/26/17 20:13 06/26/17 23:54 06/27/17 05:46 Bedside Glucose 347 mg/dl (70-99) 322 mg/dl (70-99) 270 mg/dl (70-99) Random Glucose 233 mg/dl (70-99) Test 06/27/17 07:33 06/27/17 10:53 Bedside Glucose 261 mg/dl (70-99) 279 mg/dl (70-99) Laboratory Data (last 24hrs) Test 06/27/17 05:46 Anion Gap 8.0 mmol/L BUN/Creatinine Ratio 19.4 Blood Urea Nitrogen 55 mg/dl Creatinine 2.85 mg/dl Hemoglobin A1c 6.4 % Potassium Level 3.9 mmol/L Sodium Level 132 mmol/L White Blood Count 18.97 K/uL HbA1c Test 06/27/17 05:46 Hemoglobin A1c 6.4 % (4.5-5.6) H Recent Pertinent Medications Outpatient Anti-diabetic Regimen: * [Glimepiride 2mg PO daily * Actos 30 mg PO daily The patient is currently receiving: * Basal insulin: Lantus 31 units every 12 hours * Correctional Insulin: Novolog Correction per scale ACHS Goal Range: Low 120 mg/dL - High 160 mg/dL Correction Factor: 15 mg/dL/unit * Prandial insulin: Per carb ratio of 1 unit per 4 grams CHO consumed * Oral Agents: On hold for admission Risk Factors for Insulin Resistance: * Steroids * Infection * Diet Assessment & Plan ASSESSMENT: * 76yo T2DM male with well controlled diabetes, maintained on oral agents as an outpatient * Pt with SEVERE hyperglycemia secondary to Solumedrol & infection * Current insulin orders are appropriate as they are c/w weight and stress of 3 dosing. * Pt did not receive full 24hr dose yesterday evening, just received first dose of Q24h dose split Q12hrs * BSGs are starting to trend downwards today as compared to yesterday. Additionally, Solumedrol dosing tapered from Solumedrol 40mg IV Q6hrs to Q8hrs. This should yield a small improvement in BSGs. * Will continue current dosing but give HS dose which is ordered for this evening NOW. Additional NovoLog accuchecks/coverage at midnight and 0400. Additionally, will lower Novolog goal range so more correctional insulin is given. * Continue to taper insulin with each step down in steroid dosing. A1c is well controlled, insulin most likely not needed at discharge until pt will be d/c on large prednisone taper. PLAN FOR INPATIENT GLYCEMIC CONTROL: * Continue to hold outpatient oral diabetes medications (use SQ basal bolus in its place) * Basal insulin * No change, continue Lantus 31 units SQ Q12hrs. Give tonight's dose NOW for sustained hyperglycemia since loading/Q24hr dose not initially given * Bolus insulin * Novolog per scale ACHS or Q6hrs while NPO. Additional checks/coverage at 0000 & 0400 * Goal Range: Low 110 mg/dL - High 140 mg/dL * Correction Factor: 15 mg/dL/unit * Nutritional / Prandial insulin per carb ratio of 1 unit per 4 grams CHO consumed * Please note that the plan above was derived based on current level of insulin resistance and hospital stress. These recommendations are appropriate for inpatient admission only. Plan of care upon discharge will need to be reassessed to avoid potential outpatient hypo/hyperglycemia. Thank you.
[2017-06-27] MEDS ORDERED: INSULIN GLARGINE SOLOSTAR 100 UNITS/ML 3 ML PEN SC SCH ×2 (21:00→21:30)
[2017-06-27] MEDS: MIRTAZAPINE SOLTAB 15 MG PO SCH (21:30)
[2017-06-27] MEDS: HEPARIN SOD 5000 UNIT/0.5 ML CARP SQ SCH (21:37)
[2017-06-28] VITALS (10 sets, daily range): BP systolic 130–167; BP diastolic 63–93; PULSE 70–98; TEMP 36.3–36.8; O2SAT 92–98
[2017-06-28] MEDS: INSULIN ASPART 100 UNITS/ML 3 ML PEN SC SCH ×6 (00:06→20:50)
[2017-06-28] MEDS: LEVALBUTEROL 1.25MG/3ML NEB INH SCH ×4 (02:25→19:30)
[2017-06-28 05:56] LABS: HEMOGLOBIN 10.5 g/dL (14.0-18.0); MEAN CELL VOLUME 91.2 fL (80-100); MEAN CORPUSCULAR HEMOGLOBIN 30.9 pg (25-34); MEAN CORPUSCULAR HGB CONC 33.9 g/dl (32-36); MEAN PLATELET VOLUME 10.5 fL (7.4-10.4); PLATELET COUNT 328 K/uL (130-400); RED CELL DISTRIBUTION WIDTH CV 13.8 % (11.5-14.5); RED CELL DISTRIBUTION WIDTH SD 45.8 fL (36.4-46.3); WHITE BLOOD COUNT 16.67 K/uL (4.8-10.8)
[2017-06-28] MEDS: METHYLPREDNISOLONE IV 40 MG in SYRINGE 0 ML IV SCH ×3 (06:20→21:54)
[2017-06-28] MEDS: LEVOTHYROXINE 100 MCG TAB PO SCH (06:20)
[2017-06-28 06:30] LABS: CALCIUM 9.3 mg/dl (8.5-10.1); CREATININE 2.92 mg/dl (0.60-1.40); POTASSIUM 4.3 mmol/L (3.5-5.1)
[2017-06-28] MEDS: ARFORMOTEROL TART 15MCG/2ML VIAL INH SCH ×2 (07:00→19:30)
[2017-06-28] MEDS ORDERED: SODIUM CHLORIDE 0.9% 500ML 500 ML IV SCH ×2 (09:00→18:30)
[2017-06-28] MEDS: ERYTHROMYCIN OP OINT 5 MG/GM 3.5 GM TUBE OPB SCH ×5 (09:00→20:56)
[2017-06-28] MEDS: PAROXETINE 20 MG TAB PO SCH (09:07)
[2017-06-28] MEDS: AMLODIPINE BESYLATE 5 MG TAB PO SCH (09:07)
[2017-06-28] MEDS: ASPIRIN 81 MG ECTAB PO SCH (09:07)
[2017-06-28] MEDS: FENOFIBRATE 145 MG TAB PO SCH (09:07)
[2017-06-28] MEDS: CHOLECALCIFEROL 1000 INTER.UNIT TAB PO SCH (09:07)
[2017-06-28] MEDS: ATORVASTATIN 40 MG TAB PO SCH (09:08)
[2017-06-28] MEDS: INSULIN GLARGINE SOLOSTAR 100 UNITS/ML 3 ML PEN SC SCH ×2 (09:12→20:55)
[2017-06-28] MEDS: HEPARIN SOD 5000 UNIT/0.5 ML CARP SQ SCH ×2 (09:15→20:56)
--- NOTE | 2017-06-28 09:34 | Pharmacy Progress Note ---
Pharmacy Glycemic Short Note 2 Date of Service Jun 28, 2017. OUTPATIENT ANTIDIABETIC REGIMEN: * Glimepiride 2 mg daily * Actos 30 mg daily * A1c 6.4% 06/27/17 ASSESSMENT: 06/28/17 * Patient received 86 units of insulin yesterday * BSGs have ranged from 91-279 mg/dL in past 24 hours * Steroids remain at 40 mg IV q8h * BSGs dropped at dinner and evening glycemic pharmacist loosened CF/CR and lowered basal dose * With the high-dose steroids on board, will try to provide 30-40% of TDD as basal and remainder as prandial * Fasting BSG elevated: will adjust Lantus scale to provide higher dose if necessary but will give lower dose overall as noted above * Will tighten CF/CR back to aggressive dosing since lower basal dose given * Will need to be cautious w/ worsening SCr 06/27/17 * 76yo T2DM male with well controlled diabetes, maintained on oral agents as an outpatient * Pt with SEVERE hyperglycemia secondary to Solumedrol & infection * Current insulin orders are appropriate as they are c/w weight and stress of 3 dosing. * Pt did not receive full 24hr dose yesterday evening, just received first dose of Q24h dose split Q12hrs * BSGs are starting to trend downwards today as compared to yesterday. Additionally, Solumedrol dosing tapered from Solumedrol 40mg IV Q6hrs to Q8hrs. This should yield a small improvement in BSGs. * Will continue current dosing but give HS dose which is ordered for this evening NOW. Additional NovoLog accuchecks/coverage at midnight and 0400. Additionally, will lower Novolog goal range so more correctional insulin is given. * Continue to taper insulin with each step down in steroid dosing. A1c is well controlled, insulin most likely not needed at discharge until pt will be d/c on large prednisone taper. PLAN FOR INPATIENT GLYCEMIC CONTROL: * Continue to hold outpatient oral diabetes medications * Basal insulin: adjust scale and lower overall dose * Lantus 15 units SQ BID (BSG less than 120) * Lantus 20 units SQ BID (BSG 120-200) * Lantus 25 units SQ BID (BSG > 200) * Bolus insulin * NovoLog per scale ACHS or Q6hrs while NPO * Goal Range: Low 110 mg/dL - High 140 mg/dL * TIGHTEN back to Correction Factor: 15 mg/dL/unit * TIGHTEN back to Nutritional / Prandial insulin per carb ratio of 1 unit per 4 grams CHO consumed PLAN FOR DISCHARGE: * A1c acceptable * Resume orals on discharge as long as patient not hypoglycemic as an outpatient
[2017-06-28] MEDS: LEVOFLOXACIN 750MG / D5W IV SCH (12:03)
--- NOTE | 2017-06-28 18:23 | Progress Note ---
Medicine Progress Note Date & Time of Visit: Jun 28, 2017 at 18:17. Subjective Pt was seen and examined Lying in bed with no distress Pt said that his breathing improves significantly He said that his cough is getting loose Denies any chest pain, palpitation, dizziness and SOB Objective Last 8 Hrs Date Time Temp Pulse Resp B/P (MAP) Pulse Ox O2 Delivery O2 Flow Rate FiO2 06/28/17 16:00 Nasal Cannula 4.0 06/28/17 15:55 36.3 80 22 165/86 (112) 95 Room Air 06/28/17 14:22 70 16 94 Nasal Cannula 3.0 06/28/17 12:00 Nasal Cannula 4.0 06/28/17 11:36 36.5 75 18 152/77 (102) 92 Nasal Cannula 3.0 Physical Exam: General- no acute distress Head- atraumatic Eyes- PERRL, EOMI, bruises around left eye ENT- oropharynx clear Neck- supple, no JVD Lungs- +Wheezing Heart- regular rhythm Abdomen- normal bowel sounds, soft Extremities- no calf tenderness Neuro- alert, oriented, PERRL, EOMI Skin- warm & dry Laboratory Results: Last 24 Hours Test 06/27/17 21:06 06/28/17 00:03 06/28/17 04:02 06/28/17 05:42 Bedside Glucose 176 mg/dl 164 mg/dl 201 mg/dl White Blood Count 16.67 K/uL Red Blood Count 3.40 M/uL Hemoglobin 10.5 g/dL Hematocrit 31.0 % Mean Corpuscular Volume 91.2 fL Mean Corpuscular Hemoglobin 30.9 pg Mean Corpuscular Hemoglobin Concent 33.9 g/dl RDW Standard Deviation 45.8 fL RDW Coefficient of Variation 13.8 % Platelet Count 328 K/uL Mean Platelet Volume 10.5 fL Sodium Level 132 mmol/L Potassium Level 4.3 mmol/L Chloride Level 95 mmol/L Carbon Dioxide Level 30 mmol/L Anion Gap 8.0 mmol/L Blood Urea Nitrogen 74 mg/dl Creatinine 2.92 mg/dl Est Creatinine Clear Calc Drug Dose 27.9 ml/min Estimated GFR () 22.9 Estimated GFR (Non- 19.8 BUN/Creatinine Ratio 25.4 Random Glucose 192 mg/dl Calcium Level 9.3 mg/dl Test 06/28/17 07:46 06/28/17 11:30 06/28/17 16:35 06/28/17 17:02 Bedside Glucose 172 mg/dl 233 mg/dl 56 mg/dl 91 mg/dl Assessment & Plan Patient is a 76-year-old male with the PMH significant for moderate COPD (on 3L home O2), DM II, HTN, CKD IV and other medical problems listed below presents with worsening SOB 5 days and was found to have LLL PNA. Worsening Dyspnea Pneumonia COPD exacerbation Met SIRS criteria on admission with elevated WBC and RR 28 CXR showed small patchy density at the left lung base Lactic acid trending down to 1.7 Influenza abx and ag negative Received IV levaquin q48H and solumedrol 125mg IV on admission Continue levaquin and duoneb treatment and Brovana neb, albuterol inhaler PRN Solumedrol taper to 40mg TID Continue supplemental O2 Will add guaifenesin for the cough Blood cx pending 06/28 Clinically improves Will change to prednisone Continue neb treatment On IV levaquin renal dose Blood cx no growth so far Continue oxygen supplement Hyperglycemia In setting of DM II, high dose IV steroids Recent Hgb A1c of 6.4 (06/27) Hold oral agents SSI per protocol (stress dosed) Pharmacy consulting for glycemic management had one episode of hypoglycemia continue monitor BS closely S/P mechanical fall Weakness Denies LOC, headaches, confusion following event 3 days ago Ecchymoses, laceration healing appropriately PT/OT for eval Fall precaution HTN: BP elevates Continue amlodipine, atenolol chlorthalidone was replaced to HCTZ, continue holding diuresis due to elevate creatine Will add hydralazine prn Monitor BP ACUTE ON CKD IV Possible related to poor intake Cr of 2.46 on admission, creatine baseline (2.3-2.5) Creatine increased to 2.9 Received 1L IVF on admission Will give [id number] IVF Continue holding diuretic Avoid nephrotoxic agents Mood disorder Continue Paxil, xanax PRN Stable HLD Continue statin Hypothyroidism Continue levothyroxine TSH WNL JEANNETTE: CPAP HS H/o AAA: Stable at 3.2 cm Vit D deficiency: Cont supplement DVT Ppx: SCDs Will start on heparin subq Code status: FULL CODE Disposition Will discharge once medically stable Current Inpatient Medications: Current Inpatient Medications Medications (Trade) Dose Ordered Sig/Aleksey Route Start Time Stop Time Status Last Admin Dose Admin Acetaminophen (Tylenol Tab) 650 mg Q4H PRN PO 06/26/17 14:15 07/26/17 14:14 Ondansetron HCl (Zofran Inj) 4 mg Q6H PRN IV 06/26/17 14:15 07/26/17 14:14 Insulin Aspart (novoLOG ASPART) SLIDING SCALE If C... ACHS SC 06/26/17 16:00 07/26/17 15:59 06/28/17 12:48 20 UNITS Glucose (Glucose 40% Gel) 15-30 GRAMS 15 GRAMS... UD PRN PO 06/26/17 14:15 07/26/17 14:14 Glucose (Glucose Chew Tab) 4-8 Tablets 4 Tabl... UD PRN PO 06/26/17 14:15 07/26/17 14:14 Dextrose (Dextrose 50% 50ML Syringe) 25-50ML OF 50% DW IV FOR... UD PRN IV 06/26/17 14:15 07/26/17 14:14 Glucagon (Glucagon Inj) 1 mg UD PRN SQ 06/26/17 14:15 07/26/17 14:14 Levofloxacin (Consult) 1 ea UD PRN N/A 06/26/17 14:30 07/26/17 14:29 Levalbuterol (Xopenex 1.25MG/ 3ML Neb) 1.25 mg Q6R INH 06/26/17 15:00 07/26/17 14:59 06/28/17 14:22 1.25 MG Alprazolam (Xanax Tab) 1 mg HS PRN PO 06/26/17 14:45 07/26/17 14:44 Amlodipine Besylate (Norvasc Tab) 5 mg DAILY PO 06/27/17 09:00 07/27/17 08:59 06/28/17 09:07 5 MG Aspirin (Ecotrin Tab) 81 mg DAILY PO 06/27/17 09:00 07/27/17 08:59 06/28/17 09:07 81 MG Atorvastatin Calcium (Lipitor Tab) 40 mg DAILY PO 06/27/17 09:00 07/27/17 08:59 06/28/17 09:08 40 MG Fenofibrate (Tricor Tab) 145 mg DAILY PO 06/27/17 09:00 07/27/17 08:59 06/28/17 09:07 145 MG Levothyroxine Sodium (Synthroid Tab) 100 mcg DAILYBB PO 06/27/17 06:30 07/27/17 06:29 06/28/17 06:20 100 MCG Mirtazapine (Remeron Solutab) 15 mg HS PO 06/26/17 21:00 07/26/17 20:59 06/27/17 21:30 15 MG Paroxetine HCl (pAXil TAB) 40 mg DAILY PO 06/27/17 09:00 07/27/17 08:59 06/28/17 09:07 40 MG Tramadol HCl (Ultram Tab) 50 mg DAILY PRN PO 06/26/17 14:45 07/26/17 14:44 Albuterol (Ventolin Hfa Inhaler) 2 puffs QID PRN INH 06/26/17 14:45 07/26/17 14:44 Atenolol (Tenormin Tab) 50 mg DAILY PO 06/27/17 09:00 07/27/17 08:59 06/28/17 09:08 50 MG Cholecalciferol (Vitamin D Tab) 1,000 inter.unit DAILY PO 06/27/17 09:00 07/27/17 08:59 06/28/17 09:07 1,000 INTER.UNIT Levofloxacin 750 mg/Prmx 150 ml @ 100 mls/hr Q48H IV 06/28/17 12:00 07/03/17 11:59 06/28/17 12:03 100 MLS/HR Hydrochlorothiazide (Hydrochlorothiazide Tab) 12.5 mg DAILY PO 06/27/17 09:00 07/27/17 08:59 Future Hold 06/27/17 08:41 12.5 MG Arformoterol Tartrate (Brovana 15MCG/ 2ML Neb Soln) 15 mcg Q12R INH 06/26/17 21:00 07/26/17 20:59 06/28/17 07:00 15 MCG Erythromycin (Erythromycin Oph Oint) 1 appln QID OPB 06/26/17 21:15 07/06/17 21:14 06/27/17 21:30 1 APPLN Methylprednisolone Sodium Succinate 40 mg/Syringe 0.64 ml @ 1.5 mls/min Q8 IV 06/27/17 14:00 07/26/17 15:59 06/28/17 13:26 1.5 MLS/MIN Guaifenesin (Organidin Nr Tab) 200 mg Q8 PRN PO 06/27/17 11:15 07/27/17 11:14 Heparin Sodium (Porcine) (Heparin Sq 5000 Unit/0.5ml) 5,000 unit Q12 SQ 06/27/17 21:00 07/27/17 20:59 06/28/17 09:15 5,000 UNIT Miscellaneous Information (Consult Glycemic Management Pharmacy) 1 ea UD PRN N/A 06/27/17 12:28 07/27/17 12:27 Insulin Glargine (Lantus Solostar Pen) SEE PROTOCOL TEXT BID SC 06/28/17 09:00 07/28/17 08:59 06/28/17 09:12 20 UNITS Insulin Aspart (novoLOG ASPART) SLIDING SCALE If C... TODAY@0000,0400 [place] 06/29/17 00:00 06/29/17 04:01
[2017-06-28] MEDS: MIRTAZAPINE SOLTAB 15 MG PO SCH (20:48)
[2017-06-29] VITALS (9 sets, daily range): BP systolic 113–157; BP diastolic 71–84; PULSE 76–107; TEMP 36.4–36.8; O2SAT 90–98
[2017-06-29] MEDS: LEVALBUTEROL 1.25MG/3ML NEB INH SCH ×4 (01:58→20:03)
[2017-06-29] MEDS: INSULIN ASPART 100 UNITS/ML 3 ML PEN SC SCH ×6 (04:00→21:00)
[2017-06-29 05:55] LABS: HEMATOCRIT 31.1 % (42-52); HEMOGLOBIN 10.6 g/dL (14.0-18.0); MEAN CELL VOLUME 90.9 fL (80-100); MEAN CORPUSCULAR HGB CONC 34.1 g/dl (32-36); MEAN PLATELET VOLUME 10.6 fL (7.4-10.4); PLATELET COUNT 339 K/uL (130-400); RED CELL DISTRIBUTION WIDTH CV 13.8 % (11.5-14.5); RED CELL DISTRIBUTION WIDTH SD 45.8 fL (36.4-46.3); WHITE BLOOD COUNT 10.85 K/uL (4.8-10.8)
[2017-06-29 06:28] LABS: CALCIUM 9.2 mg/dl (8.5-10.1); CREATININE 3.51 mg/dl (0.60-1.40); POTASSIUM 4.2 mmol/L (3.5-5.1)
[2017-06-29] MEDS: LEVOTHYROXINE 100 MCG TAB PO SCH (06:33)
[2017-06-29] MEDS: ARFORMOTEROL TART 15MCG/2ML VIAL INH SCH ×2 (07:36→20:03)
[2017-06-29] MEDS: ERYTHROMYCIN OP OINT 5 MG/GM 3.5 GM TUBE OPB SCH ×5 (08:12→21:00)
[2017-06-29] MEDS: FENOFIBRATE 145 MG TAB PO SCH (08:13)
[2017-06-29] MEDS: ATORVASTATIN 40 MG TAB PO SCH (08:13)
[2017-06-29] MEDS: ASPIRIN 81 MG ECTAB PO SCH (08:14)
[2017-06-29] MEDS: CHOLECALCIFEROL 1000 INTER.UNIT TAB PO SCH (08:14)
[2017-06-29] MEDS: PAROXETINE 20 MG TAB PO SCH (08:14)
[2017-06-29] MEDS: AMLODIPINE BESYLATE 5 MG TAB PO SCH (08:14)
[2017-06-29] MEDS: INSULIN GLARGINE SOLOSTAR 100 UNITS/ML 3 ML PEN SC SCH ×2 (08:23→21:00)
[2017-06-29] MEDS: HEPARIN SOD 5000 UNIT/0.5 ML CARP SQ SCH ×2 (08:23→21:13)
[2017-06-29] MEDS: SODIUM CHLORIDE 0.9% 1000ML 1,000 ML IV SCH ×2 (10:43→21:11)
--- NOTE | 2017-06-29 14:15 | DIAGNOSTIC IMAGING REPORT ---
(RENAL)RETROPERITON COMP HISTORY: 76 years-old Male NATHALIE acute kidney injury COMPARISON: PET CT 01/03/2016 TECHNIQUE: Multiple real-time sonographic images of the kidneys and urinary bladder were obtained assessing grayscale appearance and color flow FINDINGS: Right kidney measures 9.4 cm in length. There is diffuse cortical thinning with increased parenchymal echogenicity. There is isoechoic lesion of the interpolar right kidney which is slightly exophytic measuring 2.1 x 2.2 x 1.6 cm demonstrating internal vascularity. No right-sided renal calculi or hydronephrosis. The left kidney measures 9.3 cm in length and also demonstrates cortical thinning with increased parenchymal echogenicity. No left-sided renal calculi, hydronephrosis or suspicious mass lesions. Left ureteral jet is identified. The right is not seen. Urinary bladder is partially decompressed. IMPRESSION: 1. 2.2 cm exophytic isoechoic area of the interpolar right kidney suggests renal lesion with area of cortical lobulation thought to be less likely. This could be colon with a CT renal mass protocol to exclude neoplasm. 2. Bilateral renal cortical thinning with evidence of medical renal disease. 3. No renal calculi or hydronephrosis. The above report was generated using voice recognition software. It may contain grammatical, syntax or spelling errors. Electronically signed by: Robert Cedillo M.D. 06/29/2017 2:14 PM Dictated Date/Time: 06/29/2017 2:10 PM
--- NOTE | 2017-06-29 15:13 | Pharmacy Progress Note ---
Pharmacy Glycemic Short Note 2 Date of Service Jun 29, 2017. OUTPATIENT ANTIDIABETIC REGIMEN: * Glimepiride 2 mg daily * Actos 30 mg daily * A1c 6.4% 06/27/17 ASSESSMENT: 06/29/17 * Patient received a total of 73 units of insulin yesterday while on solu- medrol 40 mg IV every 8 hours. * 40 units of basal insulin * 33 units of bolus insulin * IV steroid transitioned to Prednisone 40 mg PO daily starting this morning. Unfortunately Lantus dose was already given this am prior to pharmacist realization of change in steroids. * Fasting BSG of 132 mg/dL is at goal, however lunch BSG was below goal and I attribute this to excess basal insulin because patient did not receive any bolus insulin with breakfast. I will decrease basal insulin today. Patient will receive a total of 20-30 units of Lantus today, which is a 25-50% decrease compared to yesterday. * Post-prandial BSGs are near or below goal. Loosen bolus CF/CR. * Plan to transition patient from Lantus to once daily dose of NPH tomorrow for coverage of steroid induced hyperglycemia 06/28/17 * Patient received 86 units of insulin yesterday * BSGs have ranged from 91-279 mg/dL in past 24 hours * Steroids remain at 40 mg IV q8h * BSGs dropped at dinner and evening glycemic pharmacist loosened CF/CR and lowered basal dose * With the high-dose steroids on board, will try to provide 30-40% of TDD as basal and remainder as prandial * Fasting BSG elevated: will adjust Lantus scale to provide higher dose if necessary but will give lower dose overall as noted above * Will tighten CF/CR back to aggressive dosing since lower basal dose given * Will need to be cautious w/ worsening SCr PLAN FOR INPATIENT GLYCEMIC CONTROL: * Continue to hold outpatient oral diabetes medications * Basal insulin: decrease * Lantus 20 units SQ this am * Lantus 0-10 units SQ this evening (10 units only if BSG is > 180 mg/dL) * Bolus insulin: loosen * NovoLog per scale ACHS or Q6hrs while NPO * Goal Range: Low 110 mg/dL - High 140 mg/dL * TIGHTEN back to Correction Factor: 20 mg/dL/unit * TIGHTEN back to Nutritional / Prandial insulin per carb ratio of 1 unit per 7 grams CHO consumed PLAN FOR DISCHARGE: * A1c acceptable * Resume orals on discharge as long as patient not hypoglycemic as an outpatient
--- NOTE | 2017-06-29 16:30 | Progress Note ---
Medicine Progress Note Date & Time of Visit: Jun 29, 2017 at 11:19. Subjective Pt was seen and examined Lying in bed with no distress Pt said that he feels much better His breathing improves He said that he has been voiding with no problem Denies any chest pain, palpitation, dizziness and SOB Objective Last 8 Hrs Date Time Temp Pulse Resp B/P (MAP) Pulse Ox O2 Delivery O2 Flow Rate FiO2 06/29/17 16:08 36.4 82 20 149/84 (105) 92 Nasal Cannula 2.5 06/29/17 14:35 83 16 97 Nasal Cannula 3.0 06/29/17 12:00 Nasal Cannula 3.5 06/29/17 11:43 36.6 77 16 144/81 (102) 92 Nasal Cannula 3.0 Physical Exam: General- no acute distress Head- atraumatic Eyes- PERRL, EOMI, bruises around left eye ENT- oropharynx clear Neck- supple, no JVD Lungs- no Wheezing, diminished breath sound Heart- regular rhythm Abdomen- normal bowel sounds, soft Extremities- no calf tenderness Neuro- alert, oriented, PERRL, EOMI Skin- warm & dry Laboratory Results: Last 24 Hours Test 06/28/17 16:35 06/28/17 17:02 06/28/17 20:31 06/28/17 23:59 Bedside Glucose 56 mg/dl 91 mg/dl 132 mg/dl 136 mg/dl Test 06/29/17 05:14 06/29/17 05:37 06/29/17 08:02 06/29/17 11:12 Bedside Glucose 129 mg/dl 132 mg/dl 76 mg/dl White Blood Count 10.85 K/uL Red Blood Count 3.42 M/uL Hemoglobin 10.6 g/dL Hematocrit 31.1 % Mean Corpuscular Volume 90.9 fL Mean Corpuscular Hemoglobin 31.0 pg Mean Corpuscular Hemoglobin Concent 34.1 g/dl RDW Standard Deviation 45.8 fL RDW Coefficient of Variation 13.8 % Platelet Count 339 K/uL Mean Platelet Volume 10.6 fL Sodium Level 133 mmol/L Potassium Level 4.2 mmol/L Chloride Level 97 mmol/L Carbon Dioxide Level 28 mmol/L Anion Gap 8.0 mmol/L Blood Urea Nitrogen 90 mg/dl Creatinine 3.51 mg/dl Est Creatinine Clear Calc Drug Dose 23.2 ml/min Estimated GFR () 18.4 Estimated GFR (Non- 15.8 BUN/Creatinine Ratio 25.6 Random Glucose 129 mg/dl Calcium Level 9.2 mg/dl Assessment & Plan Patient is a 76-year-old male with the PMH significant for moderate COPD (on 3L home O2), DM II, HTN, CKD IV and other medical problems listed below presents with worsening SOB 5 days and was found to have LLL PNA. Worsening Dyspnea Pneumonia COPD exacerbation Met SIRS criteria on admission with elevated WBC and RR 28 CXR showed small patchy density at the left lung base Lactic acid trending down to 1.7 Influenza abx and ag negative Received IV levaquin q48H and solumedrol 125mg IV on admission Continue levaquin and duoneb treatment and Brovana neb, albuterol inhaler PRN Solumedrol taper to 40mg TID Continue supplemental O2 Will add guaifenesin for the cough Blood cx pending 06/29 Clinically improves IV steroid was discontinue On prednisone 40mg po Continue neb treatment On IV levaquin renal dose Blood cx no growth so far Continue oxygen supplement Hyperglycemia In setting of DM II, high dose IV steroids Recent Hgb A1c of 6.4 (06/27) Hold oral agents SSI per protocol (stress dosed) Pharmacy consulting for glycemic management had one episode of hypoglycemia yesterday continue monitor BS closely S/P mechanical fall Weakness Denies LOC, headaches, confusion following event 3 days ago Ecchymoses, laceration healing appropriately PT/OT for eval Fall precaution HTN: BP elevates Continue amlodipine, atenolol chlorthalidone was replaced to HCTZ, continue holding diuresis due to elevate creatine Will add hydralazine prn Monitor BP ACUTE ON CKD IV Possible related to poor intake Cr of 2.46 on admission, creatine baseline (2.3-2.5) Creatine worsening to 3.4 Nephrology consult Re- starting on IVF Renal U/S done showed no obstruction. 2.2 cm exophytic isoechoic mass in right kidney Continue holding diuretic Avoid nephrotoxic agents Will monitor for sign of overload Right Renal Lesion Renal U/S showed 2.2 cm exophytic isoechoic area of the interpolar right kidney suggests renal lesion with area of cortical lobulation thought to be less likely Due to elevated creatine, unable to get a CT with contrast Will get a CT renal without contrast Mood disorder Continue Paxil, xanax PRN Stable HLD Continue statin Hypothyroidism Continue levothyroxine TSH WNL JEANNETTE: CPAP HS H/o AAA: Stable at 3.2 cm Vit D deficiency: Cont supplement DVT Ppx: SCDs On heparin subq Code status: FULL CODE Disposition Will discharge once medically stable Current Inpatient Medications: Current Inpatient Medications Medications (Trade) Dose Ordered Sig/Aleksey Route Start Time Stop Time Status Last Admin Dose Admin Acetaminophen (Tylenol Tab) 650 mg Q4H PRN PO 06/26/17 14:15 07/26/17 14:14 Ondansetron HCl (Zofran Inj) 4 mg Q6H PRN IV 06/26/17 14:15 07/26/17 14:14 Insulin Aspart (novoLOG ASPART) SLIDING SCALE If C... ACHS SC 06/26/17 16:00 07/26/17 15:59 06/29/17 12:33 2 UNITS Glucose (Glucose 40% Gel) 15-30 GRAMS 15 GRAMS... UD PRN PO 06/26/17 14:15 07/26/17 14:14 Glucose (Glucose Chew Tab) 4-8 Tablets 4 Tabl... UD PRN PO 06/26/17 14:15 07/26/17 14:14 Dextrose (Dextrose 50% 50ML Syringe) 25-50ML OF 50% DW IV FOR... UD PRN IV 06/26/17 14:15 07/26/17 14:14 Glucagon (Glucagon Inj) 1 mg UD PRN SQ 06/26/17 14:15 07/26/17 14:14 Levofloxacin (Consult) 1 ea UD PRN N/A 06/26/17 14:30 07/26/17 14:29 Levalbuterol (Xopenex 1.25MG/ 3ML Neb) 1.25 mg Q6R INH 06/26/17 15:00 07/26/17 14:59 06/29/17 14:35 1.25 MG Alprazolam (Xanax Tab) 1 mg HS PRN PO 06/26/17 14:45 07/26/17 14:44 Amlodipine Besylate (Norvasc Tab) 5 mg DAILY PO 06/27/17 09:00 07/27/17 08:59 06/29/17 08:14 5 MG Aspirin (Ecotrin Tab) 81 mg DAILY PO 06/27/17 09:00 07/27/17 08:59 06/29/17 08:14 81 MG Atorvastatin Calcium (Lipitor Tab) 40 mg DAILY PO 06/27/17 09:00 07/27/17 08:59 06/29/17 08:13 40 MG Levothyroxine Sodium (Synthroid Tab) 100 mcg DAILYBB PO 06/27/17 06:30 07/27/17 06:29 06/29/17 06:33 100 MCG Mirtazapine (Remeron Solutab) 15 mg HS PO 06/26/17 21:00 07/26/17 20:59 06/28/17 20:48 15 MG Paroxetine HCl (pAXil TAB) 40 mg DAILY PO 06/27/17 09:00 07/27/17 08:59 06/29/17 08:14 40 MG Tramadol HCl (Ultram Tab) 50 mg DAILY PRN PO 06/26/17 14:45 07/26/17 14:44 Albuterol (Ventolin Hfa Inhaler) 2 puffs QID PRN INH 06/26/17 14:45 07/26/17 14:44 Atenolol (Tenormin Tab) 50 mg DAILY PO 06/27/17 09:00 07/27/17 08:59 06/29/17 08:14 50 MG Cholecalciferol (Vitamin D Tab) 1,000 inter.unit DAILY PO 06/27/17 09:00 07/27/17 08:59 06/29/17 08:14 1,000 INTER.UNIT Levofloxacin 750 mg/Prmx 150 ml @ 100 mls/hr Q48H IV 06/28/17 12:00 07/03/17 11:59 06/28/17 12:03 100 MLS/HR Hydrochlorothiazide (Hydrochlorothiazide Tab) 12.5 mg DAILY PO 06/27/17 09:00 07/27/17 08:59 Future Hold 06/27/17 08:41 12.5 MG Arformoterol Tartrate (Brovana 15MCG/ 2ML Neb Soln) 15 mcg Q12R INH 06/26/17 21:00 07/26/17 20:59 06/29/17 07:36 15 MCG Erythromycin (Erythromycin Oph Oint) 1 appln QID OPB 06/26/17 21:15 07/06/17 21:14 06/27/17 21:30 1 APPLN Guaifenesin (Organidin Nr Tab) 200 mg Q8 PRN PO 06/27/17 11:15 07/27/17 11:14 Heparin Sodium (Porcine) (Heparin Sq 5000 Unit/0.5ml) 5,000 unit Q12 SQ 06/27/17 21:00 07/27/17 20:59 06/29/17 08:23 5,000 UNIT Miscellaneous Information (Consult Glycemic Management Pharmacy) 1 ea UD PRN N/A 06/27/17 12:28 07/27/17 12:27 Insulin Glargine (Lantus Solostar Pen) SEE PROTOCOL TEXT BID SC 06/28/17 09:00 06/29/17 23:59 06/29/17 08:23 20 UNITS Prednisone (PredniSONE TAB) 40 mg DAILY PO 06/29/17 09:00 07/29/17 08:59 06/29/17 08:42 40 MG Sodium Chloride 1,000 ml @ 100 mls/hr Q10H IV 06/29/17 10:15 07/29/17 10:14 06/29/17 10:43 100 MLS/HR
--- NOTE | 2017-06-29 17:43 | DIAGNOSTIC IMAGING REPORT ---
Abdominal CT WITHOUT CONTRAST HISTORY: Exophytic mass in right kidney seen on U/S TECHNIQUE: Multiaxial CT images of the abdomen were performed without the use of intravenous contrast. COMPARISON STUDY: Abdomen and pelvis CT 10/08/2015. FINDINGS: The lung bases are clear. No pneumoperitoneum. No pneumatosis. There are old, healed left anterior rib fractures. The heart is normal in size. The visualized loops of bowel show no wall thickening or obstruction. The unenhanced liver, spleen, and adrenal glands are unremarkable. The gallbladder is decompressed. Small of gas within the main pancreatic duct. The pancreas is atrophic and demonstrates partial fatty replacement. No retroperitoneal lymphadenopathy. There is a 3.4 cm infrarenal abdominal aortic aneurysm. This has slightly increased in size area lobular contour to the bilateral kidneys consistent with scarring. Vascular calcifications within the renal sinuses. No renal calculi or hydronephrosis. There is suggestion of a 2 cm lesion within the upper pole the right kidney which would correspond to the ultrasound abnormality. This does not demonstrate average Hounsfield units consistent with a simple cyst. However, this lesion is technically indeterminate without the use of intravenous contrast. IMPRESSION: 1. There appears to be a 2 cm lesion within the upper pole of the right kidney which does not clearly represent a simple cyst. However, this lesion is technically indeterminate without the use of intravenous contrast. Therefore, a solid renal mass cannot be excluded. A dedicated abdominal CT with intravenous contrast or contrast enhanced abdominal MRI is recommended for further evaluation. 2. A 3.4 cm infrarenal abdominal aortic aneurysm. Electronically signed by: Marko France M.D. 06/29/2017 5:42 PM Dictated Date/Time: 06/29/2017 5:27 PM
[2017-06-29] MEDS: MIRTAZAPINE SOLTAB 15 MG PO SCH (21:12)
[2017-06-30] VITALS (8 sets, daily range): BP systolic 120–153; BP diastolic 66–84; PULSE 73–90; TEMP 36.3–36.7; O2SAT 91–97
[2017-06-30] MEDS: LEVALBUTEROL 1.25MG/3ML NEB INH SCH ×4 (02:01→18:49)
[2017-06-30] MEDS: LEVOTHYROXINE 100 MCG TAB PO SCH (06:21)
[2017-06-30] MEDS: SODIUM CHLORIDE 0.9% 1000ML 1,000 ML IV SCH ×2 (06:21→17:21)
[2017-06-30] MEDS: ARFORMOTEROL TART 15MCG/2ML VIAL INH SCH ×2 (06:55→18:49)
[2017-06-30] MEDS: DEXTROSE 50% 50 ML SYR IV PRN ×2 (07:27→12:33)
[2017-06-30] MEDS: ATORVASTATIN 40 MG TAB PO SCH (08:27)
[2017-06-30] MEDS: ASPIRIN 81 MG ECTAB PO SCH (08:27)
[2017-06-30] MEDS: AMLODIPINE BESYLATE 5 MG TAB PO SCH (08:27)
[2017-06-30] MEDS: PAROXETINE 20 MG TAB PO SCH (08:28)
[2017-06-30] MEDS: CHOLECALCIFEROL 1000 INTER.UNIT TAB PO SCH (08:28)
[2017-06-30] MEDS: INSULIN ASPART 100 UNITS/ML 3 ML PEN SC SCH ×4 (08:33→21:00)
[2017-06-30] MEDS: HEPARIN SOD 5000 UNIT/0.5 ML CARP SQ SCH ×2 (08:33→21:13)
[2017-06-30] MEDS: ERYTHROMYCIN OP OINT 5 MG/GM 3.5 GM TUBE OPB SCH ×4 (08:34→21:00)
[2017-06-30 09:12] LABS: CALCIUM 8.3 mg/dl (8.5-10.1); CREATININE 3.33 mg/dl (0.60-1.40)
[2017-06-30 09:19] LABS: POTASSIUM 4.1 mmol/L (3.5-5.1)
--- NOTE | 2017-06-30 09:40 | NEPHROLOGY CONSULTATION ---
DATE OF CONSULTATION: 06/30/2017 ATTENDING OF RECORD: Esthela Asencio MD REASON FOR CONSULTATION: NATHALIE. HISTORY OF PRESENT ILLNESS: This is a 76-year-old male who follows with me in outpatient clinic for CKD stage IV with underlying diabetes and hypertension who is also on chronic oxygen for his underlying COPD, who presented on the with worsening shortness of breath. Otherwise, findings on chest x-ray is concerning for pneumonia and the patient did have an elevated white count, continued antibiotics and Levaquin as well as steroids for possible underlying COPD exacerbation. Creatinine was at baseline on admission. Creatinine during this hospitalization has slowly trended up from 2.4 on admission to 2.85 on the , 2.92 on the and 3.51 yesterday. Patient was started on normal saline at 100 mL an hour yesterday to try to cutter helper in renal recovery. The patient did do a renal ultrasound, which did not show any hydronephrosis, just signs of medical renal disease. There was a 2.2 cm exophytic isoechoic area in the right kidney suggestive of a renal lesion. Underwent a renal CT, which is hard to elucidate without contrast, appears to be cystic in nature, but needs a followup studies once able to give contrast. The patient did develop a hypoglycemic event last night, but feeling better this morning. PAST MEDICAL HISTORY: Abdominal aortic aneurysm, CKD stage IV with baseline creatinine in the low 2s, COPD on chronic oxygen, type 2 diabetes, hyperlipidemia, hypertension, hypothyroidism, obstructive sleep apnea on CPAP. PAST SURGICAL HISTORY: Elbow surgeries, knee surgeries. FAMILY HISTORY: Significant for diabetes. SOCIAL HISTORY: Former smoker, no alcohol, no drugs. and lives at home with family. CURRENT MEDICATIONS: Normal saline at 100 mL an hour, prednisone 40 mg a day, Levaquin 750 mg IV q. 48, heparin 5,000 units subQ q. 12, Norvasc 5 mg a day, aspirin 81 mg a day, Lipitor 40 mg a day, Paxil 40 mg a day, atenolol 50 mg a day, vitamin D 1000 units a day, levothyroxine 100 mcg daily, Remeron 15 mg at night. REVIEW OF SYSTEMS: Positive chronic shortness of breath. Positive weakness and fatigue. Still with a good appetite. No nausea, vomiting. No diarrhea or constipation. No dysuria or hematuria. No itching or rash. All other review of systems otherwise negative. PHYSICAL EXAMINATION: VITAL SIGNS: Temperature 36.5, pulse 77, respiratory rate 16, blood pressure 153/66, satting 96% on 3 liters nasal cannula. GENERAL: Awake, alert, oriented x3. EYES: No scleral icterus. ENT: Moist mucous membranes. NECK: Supple. PULMONARY: Mild end expiratory wheeze. CARDIAC: Regular rate and rhythm. ABDOMEN: Bowel sounds positive, soft, nontender. EXTREMITIES: +1 edema. NEUROLOGICAL: Nonfocal. DERMATOLOGIC: Some healing lacerations otherwise no ulcers noted. LABORATORIES: From yesterday, sodium level 133, potassium 4.2, chloride 97, bicarbonate 28. BUN is 90, creatinine is 3.51, glucose is 129, calcium is 9.2. White count is 10, H and H 10 and 31, platelet count is 339. INR is 1.2. Blood gas from the 11 showed a pH of 7.38, pCO2 of 51, pO2 of 65, bicarbonate of 29. Flu negative. ASSESSMENT AND PLAN: Acute kidney injury. A 76-year-old male with underlying chronic kidney disease stage IV with baseline creatinine in the low 2s, who was admitted for pneumonia/chronic obstructive pulmonary disease exacerbation. Currently on prednisone 40 mg a day as well as Levaquin and now is on IV fluids. Likely, had a mild acute tubular necrosis insult in the setting of the pneumonia and giving judicious use of fluids while monitoring for signs of volume overload, given patient's cardiac and pulmonary history and/or an oxygen dependent. A renal ultrasound was negative for hydro. There was a concerning lesion, which needs to followed up with urology as an outpatient once able to elucidate further imaging. The patient appears comfortable with no specific complaints, would continue the IV fluids and follow the creatinine trend. No need for dialysis at this time, not experiencing any uremic symptoms. I appreciate consultation. MISTY
[2017-06-30] MEDS: LEVOFLOXACIN 750MG / D5W IV SCH (12:14)
--- NOTE | 2017-06-30 13:00 | Progress Note ---
Medicine Progress Note Date & Time of Visit: Jun 30, 2017 at 12:35. Subjective Pt was seen and examined Sitting in chair with no distress Pt said that he starting to feel better He said that his cough and his breathing improve Pt had had 2 episodes of low BS Denies any chest pain, palpitation, dizziness and SOB Objective Last 8 Hrs Date Time Temp Pulse Resp B/P (MAP) Pulse Ox O2 Delivery O2 Flow Rate FiO2 06/30/17 12:00 Nasal Cannula 3.0 06/30/17 08:00 Nasal Cannula 3.0 06/30/17 07:36 36.5 77 16 153/66 (95) 96 Nasal Cannula 3.0 06/30/17 06:56 73 16 97 Nasal Cannula 3.0 06/30/17 05:04 36.3 80 20 141/84 (103) 93 Room Air Physical Exam: General- no acute distress Head- atraumatic Eyes- PERRL, EOMI, bruises around left eye ENT- oropharynx clear Neck- supple, no JVD Lungs- no Wheezing, diminished breath sound Heart- regular rhythm Abdomen- normal bowel sounds, soft Extremities- no calf tenderness Neuro- alert, oriented, PERRL, EOMI Skin- warm & dry Laboratory Results: Last 24 Hours Test 06/29/17 16:48 06/29/17 20:14 06/30/17 07:16 06/30/17 07:46 Bedside Glucose 142 mg/dl 78 mg/dl 58 mg/dl 123 mg/dl Test 06/30/17 08:14 06/30/17 12:01 Sodium Level 137 mmol/L Potassium Level 4.1 mmol/L Chloride Level 102 mmol/L Carbon Dioxide Level 28 mmol/L Anion Gap 7.0 mmol/L Blood Urea Nitrogen 85 mg/dl Creatinine 3.33 mg/dl Est Creatinine Clear Calc Drug Dose 24.4 ml/min Estimated GFR () 19.6 Estimated GFR (Non- 16.9 BUN/Creatinine Ratio 25.6 Random Glucose 98 mg/dl Calcium Level 8.3 mg/dl Bedside Glucose 63 mg/dl Assessment & Plan Patient is a 76-year-old male with the PMH significant for moderate COPD (on 3L home O2), DM II, HTN, CKD IV and other medical problems listed below presents with worsening SOB 5 days and was found to have LLL PNA. Worsening Dyspnea Pneumonia COPD exacerbation Met SIRS criteria on admission with elevated WBC and RR 28 CXR showed small patchy density at the left lung base Lactic acid trending down to 1.7 Influenza abx and ag negative Received IV levaquin q48H and solumedrol 125mg IV on admission Continue levaquin and duoneb treatment and Brovana neb, albuterol inhaler PRN Solumedrol taper to 40mg TID Continue supplemental O2 Will add guaifenesin for the cough Blood cx pending 06/30 Clinically improves Continue prednisone 40mg daily Continue neb treatment Will change IV levaquin to oral renal dose Blood cx no growth so far Continue oxygen supplement Hyperglycemia In setting of DM II, high dose IV steroids Recent Hgb A1c of 6.4 (06/27) Hold oral agents SSI per protocol (stress dosed) Pharmacy consulting for glycemic management had one episode of hypoglycemia yesterday continue monitor BS closely Resolved Hypoglycemia 2 episode of Low BS dextrose was given Nurse will notify pharmacy continue monitor BS S/P mechanical fall Weakness Denies LOC, headaches, confusion following event 3 days ago Ecchymoses, laceration healing appropriately PT/OT for eval Fall precaution HTN: BP elevates Continue amlodipine, atenolol chlorthalidone was replaced to HCTZ, continue holding diuresis due to elevate creatine Will add hydralazine prn Monitor BP ACUTE ON CKD IV Possible related to poor intake in the setting of pneumonia Cr of 2.46 on admission, creatine baseline (2.3-2.5) Creatine 3.3 today Nephrology consult Recommended to continue IVF at the current rate Renal U/S done showed no obstruction. 2.2 cm exophytic isoechoic mass in right kidney Continue holding diuretic Avoid nephrotoxic agents Will monitor for sign of overload Right Renal Lesion Renal U/S showed 2.2 cm exophytic isoechoic area of the interpolar right kidney suggests renal lesion with area of cortical lobulation thought to be less likely Due to elevated creatine, unable to get a CT with contrast CT renal without contrast showed a 2 cm lesion within the upper pole of the right kidney which does not clearly represent a simple cyst. Due to lack of contrast, mass was not able to evaluate further Will need to follow up with urology as an outpatient for further eval Mood disorder Continue Paxil, xanax PRN Stable HLD Continue statin Hypothyroidism Continue levothyroxine TSH WNL JEANNETTE: CPAP HS H/o AAA: Stable at 3.2 cm Continue monitor as an outpatient Vit D deficiency: Cont supplement DVT Ppx: SCDs On heparin subq Code status: FULL CODE Disposition Will discharge once medically stable Current Inpatient Medications: Current Inpatient Medications Medications (Trade) Dose Ordered Sig/Aleksey Route Start Time Stop Time Status Last Admin Dose Admin Acetaminophen (Tylenol Tab) 650 mg Q4H PRN PO 06/26/17 14:15 07/26/17 14:14 Ondansetron HCl (Zofran Inj) 4 mg Q6H PRN IV 06/26/17 14:15 07/26/17 14:14 Insulin Aspart (novoLOG ASPART) SLIDING SCALE If C... ACHS SC 06/26/17 16:00 07/26/17 15:59 06/30/17 08:33 4 UNITS Glucose (Glucose 40% Gel) 15-30 GRAMS 15 GRAMS... UD PRN PO 06/26/17 14:15 07/26/17 14:14 Glucose (Glucose Chew Tab) 4-8 Tablets 4 Tabl... UD PRN PO 06/26/17 14:15 07/26/17 14:14 Dextrose (Dextrose 50% 50ML Syringe) 25-50ML OF 50% DW IV FOR... UD PRN IV 06/26/17 14:15 07/26/17 14:14 06/30/17 07:27 25 ML Glucagon (Glucagon Inj) 1 mg UD PRN SQ 06/26/17 14:15 07/26/17 14:14 Levofloxacin (Consult) 1 ea UD PRN N/A 06/26/17 14:30 07/26/17 14:29 Levalbuterol (Xopenex 1.25MG/ 3ML Neb) 1.25 mg Q6R INH 06/26/17 15:00 07/26/17 14:59 06/29/17 14:35 1.25 MG Alprazolam (Xanax Tab) 1 mg HS PRN PO 06/26/17 14:45 07/26/17 14:44 Amlodipine Besylate (Norvasc Tab) 5 mg DAILY PO 06/27/17 09:00 07/27/17 08:59 06/30/17 08:27 5 MG Aspirin (Ecotrin Tab) 81 mg DAILY PO 06/27/17 09:00 07/27/17 08:59 06/30/17 08:27 81 MG Atorvastatin Calcium (Lipitor Tab) 40 mg DAILY PO 06/27/17 09:00 07/27/17 08:59 06/30/17 08:27 40 MG Levothyroxine Sodium (Synthroid Tab) 100 mcg DAILYBB PO 06/27/17 06:30 07/27/17 06:29 06/30/17 06:21 100 MCG Mirtazapine (Remeron Solutab) 15 mg HS PO 06/26/17 21:00 07/26/17 20:59 06/29/17 21:12 15 MG Paroxetine HCl (pAXil TAB) 40 mg DAILY PO 06/27/17 09:00 07/27/17 08:59 06/30/17 08:28 40 MG Tramadol HCl (Ultram Tab) 50 mg DAILY PRN PO 06/26/17 14:45 07/26/17 14:44 Albuterol (Ventolin Hfa Inhaler) 2 puffs QID PRN INH 06/26/17 14:45 07/26/17 14:44 Atenolol (Tenormin Tab) 50 mg DAILY PO 06/27/17 09:00 07/27/17 08:59 06/30/17 08:28 50 MG Cholecalciferol (Vitamin D Tab) 1,000 inter.unit DAILY PO 06/27/17 09:00 07/27/17 08:59 06/30/17 08:28 1,000 INTER.UNIT Levofloxacin 750 mg/Prmx 150 ml @ 100 mls/hr Q48H IV 06/28/17 12:00 07/03/17 11:59 06/30/17 12:14 100 MLS/HR Hydrochlorothiazide (Hydrochlorothiazide Tab) 12.5 mg DAILY PO 06/27/17 09:00 07/27/17 08:59 Future Hold 06/27/17 08:41 12.5 MG Arformoterol Tartrate (Brovana 15MCG/ 2ML Neb Soln) 15 mcg Q12R INH 06/26/17 21:00 07/26/17 20:59 06/30/17 06:55 15 MCG Erythromycin (Erythromycin Oph Oint) 1 appln QID OPB 06/26/17 21:15 07/06/17 21:14 06/27/17 21:30 1 APPLN Guaifenesin (Organidin Nr Tab) 200 mg Q8 PRN PO 06/27/17 11:15 07/27/17 11:14 Heparin Sodium (Porcine) (Heparin Sq 5000 Unit/0.5ml) 5,000 unit Q12 SQ 06/27/17 21:00 07/27/17 20:59 06/30/17 08:33 5,000 UNIT Miscellaneous Information (Consult Glycemic Management Pharmacy) 1 ea UD PRN N/A 06/27/17 12:28 07/27/17 12:27 Prednisone (PredniSONE TAB) 40 mg DAILY PO 06/29/17 09:00 07/29/17 08:59 06/30/17 08:28 40 MG Sodium Chloride 1,000 ml @ 100 mls/hr Q10H IV 06/29/17 10:15 07/29/17 10:14 06/30/17 06:21 100 MLS/HR
--- NOTE | 2017-06-30 15:28 | Pharmacy Progress Note ---
Pharmacy Glycemic Short Note 2 Date of Service Jun 30, 2017. OUTPATIENT ANTIDIABETIC REGIMEN: * Glimepiride 2 mg daily * Actos 30 mg daily * A1c 6.4% 06/27/17 ASSESSMENT: 06/30/17 * Insulin requirements significantly decreased over the past 24 hours (73 units on 06/28 -> 27 units on 06/29) following transition of solu-medrol IV to once daily prednisone. Patient experienced hypoglycemia this am (58 mg/dL) and prior to lunch (63 mg/dl) despite 50% decrease in basal insulin and loosening CF/CR. * Changes needed to current regimen: * Hold basal insulin until fasting BSG is within goal range. * If basal is needed in the future, consider using NPH. NPH is preferred for once daily prednisone due to better coverage of peak effect of prednisone. * Further loosen bolus insulin parameters 06/29/17 * Patient received a total of 73 units of insulin yesterday while on solu- medrol 40 mg IV every 8 hours. * 40 units of basal insulin * 33 units of bolus insulin * IV steroid transitioned to Prednisone 40 mg PO daily starting this morning. Unfortunately Lantus dose was already given this am prior to pharmacist realization of change in steroids. * Fasting BSG of 132 mg/dL is at goal, however lunch BSG was below goal and I attribute this to excess basal insulin because patient did not receive any bolus insulin with breakfast. I will decrease basal insulin today. Patient will receive a total of 20-30 units of Lantus today, which is a 25-50% decrease compared to yesterday. * Post-prandial BSGs are near or below goal. Loosen bolus CF/CR. * Plan to transition patient from Lantus to once daily dose of NPH tomorrow for coverage of steroid induced hyperglycemia PLAN FOR INPATIENT GLYCEMIC CONTROL: * Continue to hold outpatient oral diabetes medications * Basal insulin: * no further basal insulin until fasting BSG is at goal * Bolus insulin: loosen * NovoLog per scale ACHS or Q6hrs while NPO * Goal Range: Low 110 mg/dL - High 140 mg/dL * Correction Factor: 25 mg/dL/unit * Nutritional / Prandial insulin per carb ratio of 1 unit per 12 grams CHO consumed PLAN FOR DISCHARGE: * A1c acceptable * Resume orals on discharge as long as patient not hypoglycemic as an outpatient
[2017-06-30] MEDS: MIRTAZAPINE SOLTAB 15 MG PO SCH (21:09)
[2017-07-01] VITALS (13 sets, daily range): BP systolic 134–187; BP diastolic 66–96; PULSE 73–101; TEMP 36.4–36.7; O2SAT 92–98
[2017-07-01] MEDS: SODIUM CHLORIDE 0.9% 1000ML 1,000 ML IV SCH ×2 (03:28→15:49)
[2017-07-01] MEDS: LEVALBUTEROL 1.25MG/3ML NEB INH SCH ×4 (03:55→19:54)
[2017-07-01] MEDS: LEVOTHYROXINE 100 MCG TAB PO SCH (06:36)
[2017-07-01 06:54] LABS: CALCIUM 8.1 mg/dl (8.5-10.1); CREATININE 3.05 mg/dl (0.60-1.40); POTASSIUM 4.3 mmol/L (3.5-5.1)
[2017-07-01] MEDS: ARFORMOTEROL TART 15MCG/2ML VIAL INH SCH ×2 (07:23→19:54)
[2017-07-01] MEDS: ERYTHROMYCIN OP OINT 5 MG/GM 3.5 GM TUBE OPB SCH ×4 (08:03→20:46)
[2017-07-01] MEDS: ATORVASTATIN 40 MG TAB PO SCH (08:04)
[2017-07-01] MEDS: AMLODIPINE BESYLATE 5 MG TAB PO SCH (08:04)
[2017-07-01] MEDS: ASPIRIN 81 MG ECTAB PO SCH (08:04)
[2017-07-01] MEDS: CHOLECALCIFEROL 1000 INTER.UNIT TAB PO SCH (08:05)
[2017-07-01] MEDS: PAROXETINE 20 MG TAB PO SCH (08:05)
[2017-07-01] MEDS: INSULIN ASPART 100 UNITS/ML 3 ML PEN SC SCH ×4 (08:08→20:46)
[2017-07-01] MEDS: HEPARIN SOD 5000 UNIT/0.5 ML CARP SQ SCH ×2 (08:10→20:50)
[2017-07-01] MEDS: HydrALAZINE HCL 20 MG/ML VIAL IV. PRN ×2 (13:46→19:46)
--- NOTE | 2017-07-01 17:42 | Progress Note ---
Medicine Progress Note Date & Time of Visit: Jul 01, 2017 at 17:38. Subjective Pt was seen and examined Sitting at the edge of bed with no distress eating lunch Pt said that he feels fine Denies any chest pain, palpitation, dizziness and SOB Objective Last 8 Hrs Date Time Temp Pulse Resp B/P (MAP) Pulse Ox O2 Delivery O2 Flow Rate FiO2 07/01/17 16:17 36.4 74 20 134/82 (99) 98 Nasal Cannula 2.5 07/01/17 14:45 78 18 97 Nasal Cannula 3.0 07/01/17 12:51 36.5 85 20 187/96 (126) 94 Nasal Cannula 3.0 07/01/17 12:00 Nasal Cannula 3.0 Physical Exam: General- no acute distress Head- atraumatic Eyes- PERRL, EOMI, bruises around left eye ENT- oropharynx clear Neck- supple, no JVD Lungs- no Wheezing, diminished breath sound Heart- regular rhythm Abdomen- normal bowel sounds, soft Extremities- no calf tenderness Neuro- alert, oriented, PERRL, EOMI Skin- warm & dry Laboratory Results: Last 24 Hours Test 06/30/17 20:47 07/01/17 05:54 07/01/17 07:12 07/01/17 12:02 Bedside Glucose 154 mg/dl 82 mg/dl 154 mg/dl Sodium Level 139 mmol/L Potassium Level 4.3 mmol/L Chloride Level 105 mmol/L Carbon Dioxide Level 27 mmol/L Anion Gap 7.0 mmol/L Blood Urea Nitrogen 73 mg/dl Creatinine 3.05 mg/dl Est Creatinine Clear Calc Drug Dose 26.8 ml/min Estimated GFR () 21.8 Estimated GFR (Non- 18.8 BUN/Creatinine Ratio 23.8 Random Glucose 72 mg/dl Calcium Level 8.1 mg/dl Test 07/01/17 16:29 Bedside Glucose 202 mg/dl Assessment & Plan Patient is a 76-year-old male with the PMH significant for moderate COPD (on 3L home O2), DM II, HTN, CKD IV and other medical problems listed below presents with worsening SOB 5 days and was found to have LLL PNA. Worsening Dyspnea Pneumonia COPD exacerbation Met SIRS criteria on admission with elevated WBC and RR 28 CXR showed small patchy density at the left lung base Lactic acid trending down to 1.7 Influenza abx and ag negative Received IV levaquin q48H and solumedrol 125mg IV on admission Continue levaquin and duoneb treatment and Brovana neb, albuterol inhaler PRN Solumedrol taper to 40mg TID Continue supplemental O2 Will add guaifenesin for the cough Blood cx pending 07/01 Clinically improves Continue prednisone 40mg daily Continue neb treatment Will change IV levaquin to oral renal dose Blood cx no growth so far Continue oxygen supplement Hyperglycemia In setting of DM II, high dose IV steroids Recent Hgb A1c of 6.4 (06/27) Hold oral agents SSI per protocol (stress dosed) Pharmacy consulting for glycemic management had one episode of hypoglycemia yesterday continue monitor BS closely Resolved Hypoglycemia 2 episode of Low BS dextrose was given Nurse will notify pharmacy continue monitor BS Stable S/P mechanical fall Weakness Denies LOC, headaches, confusion following event 3 days ago Ecchymoses, laceration healing appropriately PT/OT for eval Fall precaution HTN: BP elevates Continue amlodipine, atenolol chlorthalidone was replaced to HCTZ, continue holding diuresis due to elevate creatine Will add hydralazine prn Monitor BP ACUTE ON CKD IV Possible related to poor intake in the setting of pneumonia Cr of 2.46 on admission, creatine baseline (2.3-2.5) Creatine 3. 05 today Nephrology consult Recommended to continue IVF at the current rate Renal U/S done showed no obstruction. 2.2 cm exophytic isoechoic mass in right kidney Continue holding diuretic Avoid nephrotoxic agents Will monitor for sign of overload Right Renal Lesion Renal U/S showed 2.2 cm exophytic isoechoic area of the interpolar right kidney suggests renal lesion with area of cortical lobulation thought to be less likely Due to elevated creatine, unable to get a CT with contrast CT renal without contrast showed a 2 cm lesion within the upper pole of the right kidney which does not clearly represent a simple cyst. Due to lack of contrast, mass was not able to evaluate further Will need to follow up with urology as an outpatient for further eval Mood disorder Continue Paxil, xanax PRN Stable HLD Continue statin Hypothyroidism Continue levothyroxine TSH WNL JEANNETTE: CPAP HS H/o AAA: Stable at 3.2 cm Continue monitor as an outpatient Vit D deficiency: Cont supplement DVT Ppx: SCDs On heparin subq Code status: FULL CODE Disposition Will discharge once medically stable Current Inpatient Medications: Current Inpatient Medications Medications (Trade) Dose Ordered Sig/Aleksey Route Start Time Stop Time Status Last Admin Dose Admin Acetaminophen (Tylenol Tab) 650 mg Q4H PRN PO 06/26/17 14:15 07/26/17 14:14 Ondansetron HCl (Zofran Inj) 4 mg Q6H PRN IV 06/26/17 14:15 07/26/17 14:14 Insulin Aspart (novoLOG ASPART) SLIDING SCALE If C... ACHS SC 06/26/17 16:00 07/26/17 15:59 07/01/17 17:27 5 UNITS Glucose (Glucose 40% Gel) 15-30 GRAMS 15 GRAMS... UD PRN PO 06/26/17 14:15 07/26/17 14:14 Glucose (Glucose Chew Tab) 4-8 Tablets 4 Tabl... UD PRN PO 06/26/17 14:15 07/26/17 14:14 Dextrose (Dextrose 50% 50ML Syringe) 25-50ML OF 50% DW IV FOR... UD PRN IV 06/26/17 14:15 07/26/17 14:14 06/30/17 12:33 25 ML Glucagon (Glucagon Inj) 1 mg UD PRN SQ 06/26/17 14:15 07/26/17 14:14 Levofloxacin (Consult) 1 ea UD PRN N/A 06/26/17 14:30 07/26/17 14:29 Levalbuterol (Xopenex 1.25MG/ 3ML Neb) 1.25 mg Q6R INH 06/26/17 15:00 07/26/17 14:59 07/01/17 14:45 1.25 MG Alprazolam (Xanax Tab) 1 mg HS PRN PO 06/26/17 14:45 07/26/17 14:44 Amlodipine Besylate (Norvasc Tab) 5 mg DAILY PO 06/27/17 09:00 07/27/17 08:59 07/01/17 08:04 5 MG Aspirin (Ecotrin Tab) 81 mg DAILY PO 06/27/17 09:00 07/27/17 08:59 07/01/17 08:04 81 MG Atorvastatin Calcium (Lipitor Tab) 40 mg DAILY PO 06/27/17 09:00 5/11/18 08:59 07/01/17 08:04 40 MG Levothyroxine Sodium (Synthroid Tab) 100 mcg DAILYBB PO 06/27/17 06:30 07/27/17 06:29 07/01/17 06:36 100 MCG Mirtazapine (Remeron Solutab) 15 mg HS PO 06/26/17 21:00 07/26/17 20:59 06/30/17 21:09 15 MG Paroxetine HCl (pAXil TAB) 40 mg DAILY PO 06/27/17 09:00 07/27/17 08:59 07/01/17 08:05 40 MG Tramadol HCl (Ultram Tab) 50 mg DAILY PRN PO 06/26/17 14:45 07/26/17 14:44 Albuterol (Ventolin Hfa Inhaler) 2 puffs QID PRN INH 06/26/17 14:45 07/26/17 14:44 Atenolol (Tenormin Tab) 50 mg DAILY PO 06/27/17 09:00 07/27/17 08:59 07/01/17 08:05 50 MG Cholecalciferol (Vitamin D Tab) 1,000 inter.unit DAILY PO 06/27/17 09:00 07/27/17 08:59 07/01/17 08:05 1,000 INTER.UNIT Levofloxacin 750 mg/Prmx 150 ml @ 100 mls/hr Q48H IV 06/28/17 12:00 07/03/17 11:59 06/30/17 12:14 100 MLS/HR Hydrochlorothiazide (Hydrochlorothiazide Tab) 12.5 mg DAILY PO 06/27/17 09:00 07/27/17 08:59 Future Hold 06/27/17 08:41 12.5 MG Arformoterol Tartrate (Brovana 15MCG/ 2ML Neb Soln) 15 mcg Q12R INH 06/26/17 21:00 07/26/17 20:59 07/01/17 07:23 15 MCG Erythromycin (Erythromycin Oph Oint) 1 appln QID OPB 06/26/17 21:15 07/06/17 21:14 06/27/17 21:30 1 APPLN Guaifenesin (Organidin Nr Tab) 200 mg Q8 PRN PO 06/27/17 11:15 07/27/17 11:14 Heparin Sodium (Porcine) (Heparin Sq 5000 Unit/0.5ml) 5,000 unit Q12 SQ 06/27/17 21:00 07/27/17 20:59 07/01/17 08:10 5,000 UNIT Miscellaneous Information (Consult Glycemic Management Pharmacy) 1 ea UD PRN N/A 06/27/17 12:28 07/27/17 12:27 Prednisone (PredniSONE TAB) 40 mg DAILY PO 06/29/17 09:00 07/29/17 08:59 07/01/17 08:05 40 MG Sodium Chloride 1,000 ml @ 100 mls/hr Q10H IV 06/29/17 10:15 07/29/17 10:14 07/01/17 15:49 100 MLS/HR Hydralazine HCl (HydrALAZINE INJ) 5 mg Q4 PRN IV. 07/01/17 13:45 07/31/17 13:44 07/01/17 13:46 5 MG
[2017-07-01] MEDS: MIRTAZAPINE SOLTAB 15 MG PO SCH (20:46)
[2017-07-02] VITALS (7 sets, daily range): BP systolic 145–173; BP diastolic 63–78; PULSE 77–87; TEMP 36.4–36.7; O2SAT 94–100
[2017-07-02] MEDS: SODIUM CHLORIDE 0.9% 1000ML 1,000 ML IV SCH ×2 (01:35→08:14)
[2017-07-02] MEDS: LEVALBUTEROL 1.25MG/3ML NEB INH SCH ×3 (02:00→14:08)
[2017-07-02] MEDS: LEVOTHYROXINE 100 MCG TAB PO SCH (06:02)
[2017-07-02 06:20] LABS: CALCIUM 8.2 mg/dl (8.5-10.1); CREATININE 2.73 mg/dl (0.60-1.40); POTASSIUM 4.3 mmol/L (3.5-5.1)
[2017-07-02] MEDS: ARFORMOTEROL TART 15MCG/2ML VIAL INH SCH (07:12)
[2017-07-02] MEDS: ERYTHROMYCIN OP OINT 5 MG/GM 3.5 GM TUBE OPB SCH ×3 (08:14→11:09)
[2017-07-02] MEDS: AMLODIPINE BESYLATE 5 MG TAB PO SCH (08:14)
[2017-07-02] MEDS: ATORVASTATIN 40 MG TAB PO SCH (08:14)
[2017-07-02] MEDS: PAROXETINE 20 MG TAB PO SCH (08:14)
[2017-07-02] MEDS: ASPIRIN 81 MG ECTAB PO SCH (08:14)
[2017-07-02] MEDS: CHOLECALCIFEROL 1000 INTER.UNIT TAB PO SCH (08:15)
[2017-07-02] MEDS: INSULIN ASPART 100 UNITS/ML 3 ML PEN SC SCH ×2 (08:16→12:23)
[2017-07-02] MEDS: HEPARIN SOD 5000 UNIT/0.5 ML CARP SQ SCH (08:17)
[2017-07-02] MEDS ORDERED: LEVOFLOXACIN 750 MG TAB PO SCH (12:00)
--- NOTE | 2017-07-02 12:50 | Pharmacy Progress Note ---
Pharmacy Glycemic Short Note 2 Date of Service Jul 02, 2017. OUTPATIENT ANTIDIABETIC REGIMEN: * Glimepiride 2 mg daily * Actos 30 mg daily * A1c 6.4% 06/27/17 ASSESSMENT: 07/02/17: * Patient's BSGs remain stable while receiving Novolog coverage only. * No need to add basal insulin at this time. * No changes for now. 06/30/17 * Insulin requirements significantly decreased over the past 24 hours (73 units on 06/28 -> 27 units on 06/29) following transition of solu-medrol IV to once daily prednisone. Patient experienced hypoglycemia this am (58 mg/dL) and prior to lunch (63 mg/dl) despite 50% decrease in basal insulin and loosening CF/CR. * Changes needed to current regimen: * Hold basal insulin until fasting BSG is within goal range. * If basal is needed in the future, consider using NPH. NPH is preferred for once daily prednisone due to better coverage of peak effect of prednisone. * Further loosen bolus insulin parameters PLAN FOR INPATIENT GLYCEMIC CONTROL: * Continue to hold outpatient oral diabetes medications * Basal insulin: * no further basal insulin until fasting BSG is at goal * Bolus insulin: * NovoLog per scale ACHS or Q6hrs while NPO * Goal Range: Low 110 mg/dL - High 140 mg/dL * Correction Factor: 25 mg/dL/unit * Nutritional / Prandial insulin per carb ratio of 1 unit per 9 grams CHO consumed PLAN FOR DISCHARGE: * A1c acceptable * Likely okay to resume oral medications on discharge, as long as patient is not having hypoglycemic episodes as an outpatient
--- NOTE | 2017-07-02 15:15 | Progress Note ---
Medicine Progress Note Date & Time of Visit: Jul 02, 2017 at 15:06. Subjective Pt was seen and examined Sitting at the edge of the bed with no distress Pt said that his breathing feels much better He said that he walked around today with no distress He said that he has been urinating a lot denies any chest pain, palpitation, dizziness and SOB Objective Last 8 Hrs Date Time Temp Pulse Resp B/P (MAP) Pulse Ox O2 Delivery O2 Flow Rate FiO2 07/02/17 14:08 79 18 97 Nasal Cannula 3.0 07/02/17 12:00 Nasal Cannula 3.0 07/02/17 11:55 36.7 87 22 145/72 (96) 95 2.0 07/02/17 08:34 36.6 79 20 173/74 (107) 100 3.0 07/02/17 07:50 Nasal Cannula 3.0 07/02/17 07:12 78 18 98 Nasal Cannula 3.0 Physical Exam: General- no acute distress Head- atraumatic Eyes- PERRL, EOMI, bruises around left eye ENT- oropharynx clear Neck- supple, no JVD Lungs- no Wheezing, diminished breath sound Heart- regular rhythm Abdomen- normal bowel sounds, soft Extremities- no calf tenderness Neuro- alert, oriented, PERRL, EOMI Skin- warm & dry Laboratory Results: Last 24 Hours Test 07/01/17 16:29 07/01/17 20:22 07/02/17 05:39 07/02/17 07:55 Bedside Glucose 202 mg/dl 134 mg/dl 82 mg/dl Sodium Level 139 mmol/L Potassium Level 4.3 mmol/L Chloride Level 107 mmol/L Carbon Dioxide Level 26 mmol/L Anion Gap 6.0 mmol/L Blood Urea Nitrogen 65 mg/dl Creatinine 2.73 mg/dl Est Creatinine Clear Calc Drug Dose 29.9 ml/min Estimated GFR () 24.9 Estimated GFR (Non- 21.5 BUN/Creatinine Ratio 23.8 Random Glucose 85 mg/dl Calcium Level 8.2 mg/dl Test 07/02/17 11:54 Bedside Glucose 113 mg/dl Assessment & Plan Patient is a 76-year-old male with the PMH significant for moderate COPD (on 3L home O2), DM II, HTN, CKD IV and other medical problems listed below presents with worsening SOB 5 days and was found to have LLL PNA. Worsening Dyspnea Pneumonia COPD exacerbation Met SIRS criteria on admission with elevated WBC and RR 28 CXR showed small patchy density at the left lung base Lactic acid trending down to 1.7 Influenza abx and ag negative Received IV levaquin q48H and solumedrol 125mg IV on admission Continue levaquin and duoneb treatment and Brovana neb, albuterol inhaler PRN Solumedrol taper to 40mg TID Continue supplemental O2 Will add guaifenesin for the cough Blood cx pending 07/02 Clinically improves taper prednisone to 20mg dailyx 3 days, then 10mg daily x 3 days Continue neb treatment Complete course of Levaquin Blood cx no growth Continue oxygen supplement Hyperglycemia In setting of DM II, high dose IV steroids Recent Hgb A1c of 6.4 (06/27) Hold oral agents SSI per protocol (stress dosed) Pharmacy consulting for glycemic management had one episode of hypoglycemia yesterday continue monitor BS closely Stable Hypoglycemia 2 episode of Low BS dextrose was given Nurse will notify pharmacy continue monitor BS Stable S/P mechanical fall Weakness Denies LOC, headaches, confusion following event 3 days ago Ecchymoses, laceration healing appropriately PT/OT for eval Fall precaution HTN: BP elevates Continue amlodipine, atenolol chlorthalidone was replaced to HCTZ, continue holding diuresis due to elevate creatine Will add hydralazine prn Monitor BP ACUTE ON CKD IV Possible related to poor intake in the setting of pneumonia Cr of 2.46 on admission, creatine baseline (2.3-2.5) Creatine 2.7 Nephrology consult D/C IVF Renal U/S done showed no obstruction. 2.2 cm exophytic isoechoic mass in right kidney Avoid nephrotoxic agents Monitor for sign of overload Will resume chlorthalidone on discharge Check BMP Right Renal Lesion Renal U/S showed 2.2 cm exophytic isoechoic area of the interpolar right kidney suggests renal lesion with area of cortical lobulation thought to be less likely Due to elevated creatine, unable to get a CT with contrast CT renal without contrast showed a 2 cm lesion within the upper pole of the right kidney which does not clearly represent a simple cyst. Due to lack of contrast, mass was not able to evaluate further Will need to follow up with urology as an outpatient for further eval Mood disorder Continue Paxil, xanax PRN Stable HLD Continue statin Hypothyroidism Continue levothyroxine TSH WNL JEANNETTE: CPAP HS H/o AAA: Stable at 3.2 cm Continue monitor as an outpatient Vit D deficiency: Cont supplement DVT Ppx: SCDs On heparin subq Code status: FULL CODE Disposition Possible discharge home today with home health services Follow up with primary care provider Dr. Solano (Dr. Yu's colleague) on 07/06 @ 10:45 AM Follow up with urology as an outpatient for further evaluation of the kidney lesion Check BMP to monitor renal function Continue PT/OT Fall precaution Monitor blood sugar continue prednisone taper course Current Inpatient Medications: Current Inpatient Medications Medications (Trade) Dose Ordered Sig/Aleksey Route Start Time Stop Time Status Last Admin Dose Admin Acetaminophen (Tylenol Tab) 650 mg Q4H PRN PO 06/26/17 14:15 07/26/17 14:14 Ondansetron HCl (Zofran Inj) 4 mg Q6H PRN IV 06/26/17 14:15 07/26/17 14:14 Insulin Aspart (novoLOG ASPART) SLIDING SCALE If C... ACHS SC 06/26/17 16:00 07/26/17 15:59 07/02/17 12:23 5 UNITS Glucose (Glucose 40% Gel) 15-30 GRAMS 15 GRAMS... UD PRN PO 06/26/17 14:15 07/26/17 14:14 Glucose (Glucose Chew Tab) 4-8 Tablets 4 Tabl... UD PRN PO 06/26/17 14:15 07/26/17 14:14 Dextrose (Dextrose 50% 50ML Syringe) 25-50ML OF 50% DW IV FOR... UD PRN IV 06/26/17 14:15 07/26/17 14:14 06/30/17 12:33 25 ML Glucagon (Glucagon Inj) 1 mg UD PRN SQ 06/26/17 14:15 07/26/17 14:14 Levofloxacin (Consult) 1 ea UD PRN N/A 06/26/17 14:30 07/03/17 11:59 Levalbuterol (Xopenex 1.25MG/ 3ML Neb) 1.25 mg Q6R INH 06/26/17 15:00 07/26/17 14:59 07/02/17 14:08 1.25 MG Alprazolam (Xanax Tab) 1 mg HS PRN PO 06/26/17 14:45 07/26/17 14:44 Amlodipine Besylate (Norvasc Tab) 5 mg DAILY PO 06/27/17 09:00 07/27/17 08:59 07/02/17 08:14 5 MG Aspirin (Ecotrin Tab) 81 mg DAILY PO 06/27/17 09:00 07/27/17 08:59 07/02/17 08:14 81 MG Atorvastatin Calcium (Lipitor Tab) 40 mg DAILY PO 06/27/17 09:00 07/27/17 08:59 07/02/17 08:14 40 MG Levothyroxine Sodium (Synthroid Tab) 100 mcg DAILYBB PO 06/27/17 06:30 07/27/17 06:29 07/02/17 06:02 100 MCG Mirtazapine (Remeron Solutab) 15 mg HS PO 06/26/17 21:00 07/26/17 20:59 07/01/17 20:46 15 MG Paroxetine HCl (pAXil TAB) 40 mg DAILY PO 06/27/17 09:00 07/27/17 08:59 07/02/17 08:14 40 MG Tramadol HCl (Ultram Tab) 50 mg DAILY PRN PO 06/26/17 14:45 07/26/17 14:44 Albuterol (Ventolin Hfa Inhaler) 2 puffs QID PRN INH 06/26/17 14:45 07/26/17 14:44 Atenolol (Tenormin Tab) 50 mg DAILY PO 06/27/17 09:00 07/27/17 08:59 07/02/17 08:15 50 MG Cholecalciferol (Vitamin D Tab) 1,000 inter.unit DAILY PO 06/27/17 09:00 07/27/17 08:59 07/02/17 08:15 1,000 INTER.UNIT Hydrochlorothiazide (Hydrochlorothiazide Tab) 12.5 mg DAILY PO 06/27/17 09:00 07/27/17 08:59 Future Hold 06/27/17 08:41 12.5 MG Arformoterol Tartrate (Brovana 15MCG/ 2ML Neb Soln) 15 mcg Q12R INH 06/26/17 21:00 07/26/17 20:59 07/02/17 07:12 15 MCG Erythromycin (Erythromycin Oph Oint) 1 appln QID OPB 06/26/17 21:15 07/06/17 21:14 06/27/17 21:30 1 APPLN Guaifenesin (Organidin Nr Tab) 200 mg Q8 PRN PO 06/27/17 11:15 07/27/17 11:14 Heparin Sodium (Porcine) (Heparin Sq 5000 Unit/0.5ml) 5,000 unit Q12 SQ 06/27/17 21:00 07/27/17 20:59 07/02/17 08:17 5,000 UNIT Miscellaneous Information (Consult Glycemic Management Pharmacy) 1 ea UD PRN N/A 06/27/17 12:28 07/27/17 12:27 Prednisone (PredniSONE TAB) 40 mg DAILY PO 06/29/17 09:00 07/29/17 08:59 07/02/17 08:14 40 MG Hydralazine HCl (HydrALAZINE INJ) 5 mg Q4 PRN IV. 07/01/17 13:45 07/31/17 13:44 07/01/17 19:46 5 MG Levofloxacin (Levaquin Tab) 750 mg Q48H PO 07/02/17 12:00 07/03/17 11:59 07/02/17 12:22 750 MG
[2017-07-02] MEDS ORDERED: PRED10TA PO (15:35)
--- NOTE | 2017-07-02 15:40 | Discharge Instructions ---
Discharge Instructions Date of Service Jul 02, 2017. Admission Reason for Admission: Copd Exacerbation, Pna (Pneumonia) Discharge Discharge Diagnosis / Problem: Pneumonia/COPD exacerbation/ Acute Kidney failure on CKD/Right Renal Lesion Discharge Goals Goal(s): Decrease discomfort, Improve function, Improve disease control Activity Recommendations Activity Limitations: resume your previous activity (as tolerated) . Instructions / Follow-Up Instructions / Follow-Up Follow up with primary care provider Dr. Solano (Dr. Yu's colleague) on 07/06 @ 10:45 AM Follow up with urology as an outpatient for further evaluation of the kidney lesion (your physician will arrange for the referral) Follow up with your nephrology Check BMP to monitor renal function Continue physical therapy Fall precaution Use your walker to ambulate Monitor blood sugar continue prednisone taper course Continue oxygen supplement Current Hospital Diet Patient's current hospital diet: Renal Diet, Diabetes Type 2 Diet Discharge Diet Recommended Diet: Diabetes Type 2 Diet, Renal Diet Pending Studies Studies pending at discharge: no Laboratory Results Hemoglobin A1c Test 06/27/17 05:46 Range/Units Estimated Average Glucose 137 mg/dl Hemoglobin A1c 6.4 H 4.5-5.6 % Medical Emergencies . Who to Call and When: Medical Emergencies: If at any time you feel your situation is an emergency, please call 911 immediately. . Non-Emergent Contact Non-Emergency issues call your: Primary Care Provider Call Non-Emergent contact if: you have any medication questions . . "Provider Documentation" section prepared by Esthela Asencio. .
--- NOTE | 2017-07-02 15:51 | Progress Note ---
Medicine Progress Note Date & Time of Visit: Jul 02, 2017 at 15:02. Objective Last 8 Hrs Date Time Temp Pulse Resp B/P (MAP) Pulse Ox O2 Delivery O2 Flow Rate FiO2 07/02/17 14:08 79 18 97 Nasal Cannula 3.0 07/02/17 12:00 Nasal Cannula 3.0 07/02/17 11:55 36.7 87 22 145/72 (96) 95 2.0 07/02/17 08:34 36.6 79 20 173/74 (107) 100 3.0 07/02/17 07:50 Nasal Cannula 3.0 07/02/17 07:12 78 18 98 Nasal Cannula 3.0 Physical Exam: General- no acute distress Head- atraumatic Eyes- PERRL, EOMI, bruises around left eye ENT- oropharynx clear Neck- supple, no JVD Lungs- no Wheezing, diminished breath sound Heart- regular rhythm Abdomen- normal bowel sounds, soft Extremities- no calf tenderness Neuro- alert, oriented, PERRL, EOMI Skin- warm & dry Laboratory Results: Last 24 Hours Test 07/01/17 16:29 07/01/17 20:22 07/02/17 05:39 07/02/17 07:55 Bedside Glucose 202 mg/dl 134 mg/dl 82 mg/dl Sodium Level 139 mmol/L Potassium Level 4.3 mmol/L Chloride Level 107 mmol/L Carbon Dioxide Level 26 mmol/L Anion Gap 6.0 mmol/L Blood Urea Nitrogen 65 mg/dl Creatinine 2.73 mg/dl Est Creatinine Clear Calc Drug Dose 29.9 ml/min Estimated GFR () 24.9 Estimated GFR (Non- 21.5 BUN/Creatinine Ratio 23.8 Random Glucose 85 mg/dl Calcium Level 8.2 mg/dl Test 07/02/17 11:54 Bedside Glucose 113 mg/dl Assessment & Plan Patient is a 76-year-old male with the PMH significant for moderate COPD (on 3L home O2), DM II, HTN, CKD IV and other medical problems listed below presents with worsening SOB 5 days and was found to have LLL PNA. Worsening Dyspnea Pneumonia COPD exacerbation Met SIRS criteria on admission with elevated WBC and RR 28 CXR showed small patchy density at the left lung base Lactic acid trending down to 1.7 Influenza abx and ag negative Received IV levaquin q48H and solumedrol 125mg IV on admission Continue levaquin and duoneb treatment and Brovana neb, albuterol inhaler PRN Solumedrol taper to 40mg TID Continue supplemental O2 Will add guaifenesin for the cough Blood cx pending 07/01 Clinically improves Continue prednisone 40mg daily Continue neb treatment Will change IV levaquin to oral renal dose Blood cx no growth so far Continue oxygen supplement Hyperglycemia In setting of DM II, high dose IV steroids Recent Hgb A1c of 6.4 (06/27) Hold oral agents SSI per protocol (stress dosed) Pharmacy consulting for glycemic management had one episode of hypoglycemia yesterday continue monitor BS closely Resolved Hypoglycemia 2 episode of Low BS dextrose was given Nurse will notify pharmacy continue monitor BS Stable S/P mechanical fall Weakness Denies LOC, headaches, confusion following event 3 days ago Ecchymoses, laceration healing appropriately PT/OT for eval Fall precaution HTN: BP elevates Continue amlodipine, atenolol chlorthalidone was replaced to HCTZ, continue holding diuresis due to elevate creatine Will add hydralazine prn Monitor BP ACUTE ON CKD IV Possible related to poor intake in the setting of pneumonia Cr of 2.46 on admission, creatine baseline (2.3-2.5) Creatine 3. 05 today Nephrology consult Recommended to continue IVF at the current rate Renal U/S done showed no obstruction. 2.2 cm exophytic isoechoic mass in right kidney Continue holding diuretic Avoid nephrotoxic agents Will monitor for sign of overload Right Renal Lesion Renal U/S showed 2.2 cm exophytic isoechoic area of the interpolar right kidney suggests renal lesion with area of cortical lobulation thought to be less likely Due to elevated creatine, unable to get a CT with contrast CT renal without contrast showed a 2 cm lesion within the upper pole of the right kidney which does not clearly represent a simple cyst. Due to lack of contrast, mass was not able to evaluate further Will need to follow up with urology as an outpatient for further eval Mood disorder Continue Paxil, xanax PRN Stable HLD Continue statin Hypothyroidism Continue levothyroxine TSH WNL JEANNETTE: CPAP HS H/o AAA: Stable at 3.2 cm Continue monitor as an outpatient Vit D deficiency: Cont supplement DVT Ppx: SCDs On heparin subq Code status: FULL CODE Disposition Will discharge once medically stable Current Inpatient Medications: Current Inpatient Medications Medications (Trade) Dose Ordered Sig/Aleksey Route Start Time Stop Time Status Last Admin Dose Admin Acetaminophen (Tylenol Tab) 650 mg Q4H PRN PO 06/26/17 14:15 07/26/17 14:14 Ondansetron HCl (Zofran Inj) 4 mg Q6H PRN IV 06/26/17 14:15 07/26/17 14:14 Insulin Aspart (novoLOG ASPART) SLIDING SCALE If C... ACHS SC 06/26/17 16:00 07/26/17 15:59 07/02/17 12:23 5 UNITS Glucose (Glucose 40% Gel) 15-30 GRAMS 15 GRAMS... UD PRN PO 06/26/17 14:15 07/26/17 14:14 Glucose (Glucose Chew Tab) 4-8 Tablets 4 Tabl... UD PRN PO 06/26/17 14:15 07/26/17 14:14 Dextrose (Dextrose 50% 50ML Syringe) 25-50ML OF 50% DW IV FOR... UD PRN IV 06/26/17 14:15 07/26/17 14:14 06/30/17 12:33 25 ML Glucagon (Glucagon Inj) 1 mg UD PRN SQ 06/26/17 14:15 07/26/17 14:14 Levofloxacin (Consult) 1 ea UD PRN N/A 06/26/17 14:30 07/03/17 11:59 Levalbuterol (Xopenex 1.25MG/ 3ML Neb) 1.25 mg Q6R INH 06/26/17 15:00 07/26/17 14:59 07/02/17 14:08 1.25 MG Alprazolam (Xanax Tab) 1 mg HS PRN PO 06/26/17 14:45 07/26/17 14:44 Amlodipine Besylate (Norvasc Tab) 5 mg DAILY PO 06/27/17 09:00 07/27/17 08:59 07/02/17 08:14 5 MG Aspirin (Ecotrin Tab) 81 mg DAILY PO 06/27/17 09:00 07/27/17 08:59 07/02/17 08:14 81 MG Atorvastatin Calcium (Lipitor Tab) 40 mg DAILY PO 06/27/17 09:00 07/27/17 08:59 07/02/17 08:14 40 MG Levothyroxine Sodium (Synthroid Tab) 100 mcg DAILYBB PO 06/27/17 06:30 07/27/17 06:29 07/02/17 06:02 100 MCG Mirtazapine (Remeron Solutab) 15 mg HS PO 06/26/17 21:00 07/26/17 20:59 07/01/17 20:46 15 MG Paroxetine HCl (pAXil TAB) 40 mg DAILY PO 06/27/17 09:00 07/27/17 08:59 07/02/17 08:14 40 MG Tramadol HCl (Ultram Tab) 50 mg DAILY PRN PO 06/26/17 14:45 07/26/17 14:44 Albuterol (Ventolin Hfa Inhaler) 2 puffs QID PRN INH 06/26/17 14:45 07/26/17 14:44 Atenolol (Tenormin Tab) 50 mg DAILY PO 06/27/17 09:00 07/27/17 08:59 07/02/17 08:15 50 MG Cholecalciferol (Vitamin D Tab) 1,000 inter.unit DAILY PO 06/27/17 09:00 07/27/17 08:59 07/02/17 08:15 1,000 INTER.UNIT Hydrochlorothiazide (Hydrochlorothiazide Tab) 12.5 mg DAILY PO 06/27/17 09:00 07/27/17 08:59 Future Hold 06/27/17 08:41 12.5 MG Arformoterol Tartrate (Brovana 15MCG/ 2ML Neb Soln) 15 mcg Q12R INH 06/26/17 21:00 07/26/17 20:59 07/02/17 07:12 15 MCG Erythromycin (Erythromycin Oph Oint) 1 appln QID OPB 06/26/17 21:15 07/06/17 21:14 06/27/17 21:30 1 APPLN Guaifenesin (Organidin Nr Tab) 200 mg Q8 PRN PO 06/27/17 11:15 07/27/17 11:14 Heparin Sodium (Porcine) (Heparin Sq 5000 Unit/0.5ml) 5,000 unit Q12 SQ 06/27/17 21:00 07/27/17 20:59 07/02/17 08:17 5,000 UNIT Miscellaneous Information (Consult Glycemic Management Pharmacy) 1 ea UD PRN N/A 06/27/17 12:28 07/27/17 12:27 Prednisone (PredniSONE TAB) 40 mg DAILY PO 06/29/17 09:00 07/29/17 08:59 07/02/17 08:14 40 MG Hydralazine HCl (HydrALAZINE INJ) 5 mg Q4 PRN IV. 07/01/17 13:45 07/31/17 13:44 07/01/17 19:46 5 MG Levofloxacin (Levaquin Tab) 750 mg Q48H PO 07/02/17 12:00 07/03/17 11:59 07/02/17 12:22 750 MG
--- NOTE | 2017-07-03 22:54 | Discharge Summary ---
Discharge Summary Date of Service Jul 03, 2017. Discharge Summary Admission Date: Jun 26, 2017 at 14:07 Discharge Date: Jul 02, 2017 Discharge Disposition: Home with services Principal Diagnosis: Pneumonia Secondary Diagnoses/Problems: COPD exacerbation Acute Kidney failure on CKD Right Renal Lesion S/P mechanical fall Weakness Dyslipidemia DM type 2 Procedures: [~ rep ct add3]] Abdominal CT WITHOUT CONTRAST HISTORY: Exophytic mass in right kidney seen on U/S TECHNIQUE: Multiaxial CT images of the abdomen were performed without the use of intravenous contrast. COMPARISON STUDY: Abdomen and pelvis CT 10/08/2015. FINDINGS: The lung bases are clear. No pneumoperitoneum. No pneumatosis. There are old, healed left anterior rib fractures. The heart is normal in size. The visualized loops of bowel show no wall thickening or obstruction. The unenhanced liver, spleen, and adrenal glands are unremarkable. The gallbladder is decompressed. Small of gas within the main pancreatic duct. The pancreas is atrophic and demonstrates partial fatty replacement. No retroperitoneal lymphadenopathy. There is a 3.4 cm infrarenal abdominal aortic aneurysm. This has slightly increased in size area lobular contour to the bilateral kidneys consistent with scarring. Vascular calcifications within the renal sinuses. No renal calculi or hydronephrosis. There is suggestion of a 2 cm lesion within the upper pole the right kidney which would correspond to the ultrasound abnormality. This does not demonstrate average Hounsfield units consistent with a simple cyst. However, this lesion is technically indeterminate without the use of intravenous contrast. IMPRESSION: 1. There appears to be a 2 cm lesion within the upper pole of the right kidney which does not clearly represent a simple cyst. However, this lesion is technically indeterminate without the use of intravenous contrast. Therefore, a solid renal mass cannot be excluded. A dedicated abdominal CT with intravenous contrast or contrast enhanced abdominal MRI is recommended for further evaluation. 2. A 3.4 cm infrarenal abdominal aortic aneurysm. Electronically signed by: Marko France M.D. 06/29/2017 5:42 PM Dictated Date/Time: 06/29/2017 5:27 PM (RENAL)RETROPERITON COMP HISTORY: 76 years-old Male NATHALIE acute kidney injury COMPARISON: PET CT 01/03/2016 TECHNIQUE: Multiple real-time sonographic images of the kidneys and urinary bladder were obtained assessing grayscale appearance and color flow FINDINGS: Right kidney measures 9.4 cm in length. There is diffuse cortical thinning with increased parenchymal echogenicity. There is isoechoic lesion of the interpolar right kidney which is slightly exophytic measuring 2.1 x 2.2 x 1.6 cm demonstrating internal vascularity. No right-sided renal calculi or hydronephrosis. The left kidney measures 9.3 cm in length and also demonstrates cortical thinning with increased parenchymal echogenicity. No left-sided renal calculi, hydronephrosis or suspicious mass lesions. Left ureteral jet is identified. The right is not seen. Urinary bladder is partially decompressed. IMPRESSION: 1. 2.2 cm exophytic isoechoic area of the interpolar right kidney suggests renal lesion with area of cortical lobulation thought to be less likely. This could be colon with a CT renal mass protocol to exclude neoplasm. 2. Bilateral renal cortical thinning with evidence of medical renal disease. 3. No renal calculi or hydronephrosis. The above report was generated using voice recognition software. It may contain grammatical, syntax or spelling errors. Electronically signed by: Robert Cedillo M.D. 06/29/2017 2:14 PM Dictated Date/Time: 06/29/2017 2:10 PM CHEST ONE VIEW PORTABLE HISTORY: Evaluate Fever/Sepsis COMPARISON: Chest 10/17/2015. FINDINGS: Small patchy density within the left lung base. The right lung is clear. Mild elevation the right hemidiaphragm, unchanged. The heart is normal in size. No pleural effusions. No pneumothorax. IMPRESSION: Small patchy density at the left lung base. This may represent a developing pneumonia. Electronically signed by: Marko France M.D. 06/26/2017 11:33 AM Dictated Date/Time: 06/26/2017 11:31 AM Medication Reconciliation New Medications: Prednisone Tab (Prednisone) 10 Mg Tab 10 MG PO UD for 5 Days, TAB take 2 tabs for 3 days, then 1 tab for 2 days. Continued Medications: Albuterol Sulfate (Proair Respiclick) 108 Mcg/Act Aer 2 PUFFS INH QID PRN for SOB/Wheezing Alprazolam (Xanax) 1 Mg Tab 1 MG PO HS PRN for Sleep, TAB Amlodipine (Norvasc) 5 Mg Tab 5 MG PO DAILY, TAB Arformoterol Tartrate (Brovana) 15 Mcg/2 Ml Neb 15 MCG INH Q12 Aspirin (Aspirin Ec) 81 Mg Tab 81 MG PO DAILY Atenolol/Chlorthalidone (Tenoretic 100 Mg/25 Mg) 100 Mg/25 Mg Tab 0.5 TAB PO DAILY, TAB Atorvastatin (Lipitor) 40 Mg Tab 1 TAB PO DAILY Budesonide (Pulmicort Respules 0.5MG/2ML) 0.5 Mg/2 Ml Nebu 2 ML INH Q12 Inhale 0.5mg via nebulizer every 12 hours Cholecalciferol (Vitamin D-3) 1,000 Unit Cap 1000 MG PO DAILY Fenofibrate (Tricor ) 145 Mg Tab 145 MG PO DAILY, TAB Glimepiride (Glimepiride) 2 Mg Tab 2 MG PO DAILY Home O2 Therapy (Oxygen) Gas 3 LITERS NA PRN Ipratropium-Albuterol (Duoneb) 3 Ml Nebu 3 ML INH QID PRN for SOB/Wheezing, INHA Levothyroxine Sodium (Synthroid) 100 Mcg Tab 100 MCG PO DAILY Mirtazapine (Mirtazapine) 15 Mg Tab 15 MG PO HS Paroxetine (Paxil) 40 Mg Tab 40 MG PO DAILY, TAB Pioglitazone (Actos) 30 Mg Tab 30 MG PO DAILY Tramadol (Ultram) 50 Mg Tab 50 MG PO DAILY PRN for severe pain , TAB Admission Information HPI (per Admitting provider): Patient is a 76-year-old male with the PMH significant for moderate COPD (on 3L home O2), DM II, HTN, CKD IV and other medical problems listed below presents with worsening SOB 5 days. At baseline, patient is able to ambulate with cane or walker around home without becoming short of breath. Last week, patient developed a productive cough with green sputum and has noticed progressively worsening dyspnea to the point that it occurs at rest. Patient also has had sore throat and hoarseness but denies fever, chills, lightheadedness, malaise or body aches. Has been using all nebulizers with minimal relief, so patient came to ED for further evaluation. En route to hospital, patient received multiple nebulizer treatments and 125 IV Solu-Medrol from EMS. Reports that he is now able to breathe more easily at rest and speak with less hoarseness. Patient reports falling 3 days ago when getting up from couch to use the restroom. Patient landed on a coffee table, bruising his left periorbital area , left knee and right flank. States that he has felt generally weak lately which may be due to being more sedentary. Denies any LOC or residual headaches or confusion. Is not on anticoagulation. Denies dizziness, visual changes, palpitations, chest pain, abdominal pain, nausea, vomiting, bowel or bladder changes, LE swelling or weight gain. Does endorse decreased appetite and p.o. intake over the last few days. In the ED, patient was found to have a leukocytosis of 14 and a small patchy density at the LLB of his lung consistent with PNA on chest x-ray. Lactic acid mildly elevated at 2.2. Physical Exam (per Admitting): General Appearance: WD/WN, no apparent distress, + obese Head: normocephalic, atraumatic Eyes: normal inspection, sclerae normal, + pertinent finding (Left periorbital ecchymosis with healing laceration, no drainage) ENT: normal ENT inspection, hearing grossly normal, pharynx normal (Dry mucous membranes), + pertinent finding (Hoarseness) Neck: supple, thyroid normal, trachea midline Respiratory/Chest: chest non-tender, no respiratory distress, no accessory muscle use, + wheezing (Diffuse wheezing in bilateral lung ignacio), + pertinent finding (Saturating appropriately on 3L NC ) Cardiovascular: no murmur, normal peripheral pulses, + tachycardia Abdomen/GI: non tender, soft, no organomegaly, + pertinent finding ( Ecchymosis on right flank) Back: normal inspection Extremities/Musculoskelatal: normal inspection, no calf tenderness, no pedal edema, + pertinent finding (Healing laceration on left knee) Neurologic/Psych: no motor/sensory deficits, alert, normal mood/affect, oriented x 3 Skin: normal color, warm/dry Hospital Course Patient is a 76-year-old male with the PMH significant for moderate COPD (on 3L home O2), DM II, HTN, CKD IV and other medical problems listed below presents with worsening SOB 5 days and was found to have LLL PNA. Worsening Dyspnea Pneumonia COPD exacerbation Met SIRS criteria on admission with elevated WBC and RR 28 CXR showed small patchy density at the left lung base Lactic acid trending down to 1.7 Influenza abx and ag negative Received IV levaquin q48H and solumedrol 125mg IV on admission Continue levaquin and duoneb treatment and Brovana neb, albuterol inhaler PRN Solumedrol taper to 40mg TID Continue supplemental O2 Will add guaifenesin for the cough Blood cx pending 07/02 Clinically improves taper prednisone to 20mg dailyx 3 days, then 10mg daily x 3 days Continue neb treatment Complete course of Levaquin Blood cx no growth Continue oxygen supplement Hyperglycemia In setting of DM II, high dose IV steroids Recent Hgb A1c of 6.4 (06/27) Hold oral agents SSI per protocol (stress dosed) Pharmacy consulting for glycemic management had one episode of hypoglycemia yesterday continue monitor BS closely Stable Hypoglycemia 2 episode of Low BS dextrose was given Nurse will notify pharmacy continue monitor BS Stable S/P mechanical fall Weakness Denies LOC, headaches, confusion following event 3 days ago Ecchymoses, laceration healing appropriately PT/OT for eval Fall precaution HTN: BP elevates Continue amlodipine, atenolol chlorthalidone was replaced to HCTZ, continue holding diuresis due to elevate creatine Will add hydralazine prn Monitor BP ACUTE ON CKD IV Possible related to poor intake in the setting of pneumonia Cr of 2.46 on admission, creatine baseline (2.3-2.5) Creatine 2.7 Nephrology consult D/C IVF Renal U/S done showed no obstruction. 2.2 cm exophytic isoechoic mass in right kidney Avoid nephrotoxic agents Monitor for sign of overload Will resume chlorthalidone on discharge Check BMP Right Renal Lesion Renal U/S showed 2.2 cm exophytic isoechoic area of the interpolar right kidney suggests renal lesion with area of cortical lobulation thought to be less likely Due to elevated creatine, unable to get a CT with contrast CT renal without contrast showed a 2 cm lesion within the upper pole of the right kidney which does not clearly represent a simple cyst. Due to lack of contrast, mass was not able to evaluate further Will need to follow up with urology as an outpatient for further eval Mood disorder Continue Paxil, xanax PRN Stable HLD Continue statin Hypothyroidism Continue levothyroxine TSH WNL JEANNETTE: CPAP HS H/o AAA: Stable at 3.2 cm Continue monitor as an outpatient Vit D deficiency: Cont supplement DVT Ppx: SCDs On heparin subq Code status: FULL CODE Disposition Possible discharge home today with home health services Follow up with primary care provider Dr. Solano (Dr. Yu's colleague) on 07/06 @ 10:45 AM Follow up with urology as an outpatient for further evaluation of the kidney lesion Check BMP to monitor renal function Continue PT/OT Fall precaution Monitor blood sugar continue prednisone taper course Total time spent on discharge = 35 minutes This includes examination of the patient, discharge planning, medication reconciliation, and communication with other providers. Discharge Instructions Discharge Instructions Date of Service Jul 02, 2017. Admission Reason for Admission: Copd Exacerbation, Pna (Pneumonia) Discharge Discharge Diagnosis / Problem: Pneumonia/COPD exacerbation/ Acute Kidney failure on CKD/Right Renal Lesion Discharge Goals Goal(s): Decrease discomfort, Improve function, Improve disease control Activity Recommendations Activity Limitations: resume your previous activity (as tolerated) . Instructions / Follow-Up Instructions / Follow-Up Follow up with primary care provider Dr. Solano (Dr. Yu's colleague) on 07/06 @ 10:45 AM Follow up with urology as an outpatient for further evaluation of the kidney lesion (your physician will arrange for the referral) Follow up with your nephrology Check BMP to monitor renal function Continue physical therapy Fall precaution Use your walker to ambulate Monitor blood sugar continue prednisone taper course Continue oxygen supplement Current Hospital Diet Patient's current hospital diet: Renal Diet, Diabetes Type 2 Diet Discharge Diet Recommended Diet: Diabetes Type 2 Diet, Renal Diet Pending Studies Studies pending at discharge: no Laboratory Results Hemoglobin A1c Test 06/27/17 05:46 Range/Units Estimated Average Glucose 137 mg/dl Hemoglobin A1c 6.4 H 4.5-5.6 % Medical Emergencies . Who to Call and When: Medical Emergencies: If at any time you feel your situation is an emergency, please call 911 immediately. . Non-Emergent Contact Non-Emergency issues call your: Primary Care Provider Call Non-Emergent contact if: you have any medication questions . . "Provider Documentation" section prepared by Esthela Asencio. . Additional Copies To Tyrel Solano M.D.
== END 2017-07-02 16:49 | disposition home health service (06) | DRG 193 ==
LOC: EDBD 10:08 → C.EDB 10:09 → C.MED 14:07 → ENRESERV 14:47
PROVIDERS: ADMIT Hospitalist; ATTEND Internal Medicine
DX: J18.9 Pneumonia, unspecified organism (principal); N17.0 Acute kidney failure with tubular necrosis; J44.0 Chronic obstructive pulmonary disease with (acute) lower respiratory infection; J44.1 Chronic obstructive pulmonary disease with (acute) exacerbation; J96.10 Chronic respiratory failure, unspecified whether with hypoxia or hypercapnia; I12.0 Hypertensive chronic kidney disease with stage 5 chronic kidney disease or end stage renal disease; N18.4 Chronic kidney disease, stage 4 (severe); R09.02 Hypoxemia; N28.9 Disorder of kidney and ureter, unspecified; E11.65 Type 2 diabetes mellitus with hyperglycemia; H10.9 Unspecified conjunctivitis; S05.12XA Contusion of eyeball and orbital tissues, left eye, initial encounter; E11.649 Type 2 diabetes mellitus with hypoglycemia without coma; R53.1 Weakness; E11.22 Type 2 diabetes mellitus with diabetic chronic kidney disease; E78.5 Hyperlipidemia, unspecified; G47.33 Obstructive sleep apnea (adult) (pediatric); E03.9 Hypothyroidism, unspecified; F32.9 Major depressive disorder, single episode, unspecified; E55.9 Vitamin D deficiency, unspecified; Z79.899 Other long term (current) drug therapy; Z79.84 Long term (current) use of oral hypoglycemic drugs; Z79.82 Long term (current) use of aspirin; Z99.81 Dependence on supplemental oxygen; Z91.81 History of falling; Z87.891 Personal history of nicotine dependence; Z83.3 Family history of diabetes mellitus; Z82.49 Family history of ischemic heart disease and other diseases of the circulatory system; W18.30XA Fall on same level, unspecified, initial encounter; Y92.009 Unspecified place in unspecified non-institutional (private) residence as the place of occurrence of the external cause; Y99.8 Other external cause status

== ENCOUNTER 2017-07-05 00:15 | Emergency (ER) | payer OTHER, MEDICARE ==
[~2017-07-05] VITALS: Ht 180.3 cm; Wt 219.1 kg
[~2017-07-05 00:15] MED LIST changes: +ALBU18002 INH; -ALBU1AER9 PO; +ARFO15NE INH; -ASPI-560 PO; +ASPI81TA28 PO; -ATOR-54 PO; +CHOL1CAP67 PO; -FLUT1SPR12 NAE; +LPT40 PO; +OXGN; +PLMINSR5 INH; +PRED10TA PO; -SALI-3; -UMEC1INH PO
[2017-07-05 00:26] VITALS: Ht 180.3 cm; Wt 219.1 kg
[2017-07-05 00:48] LABS: EOS % 0.2 %; EOS ABS # 0.02 K/uL (0-0.5); HEMATOCRIT 32.4 % (42-52); HEMOGLOBIN 10.5 g/dL (14.0-18.0); IG# 0.11 K/uL (0.00-0.02); LYMPH % 10.7 %; LYMPH ABS # 1.01 K/uL (1.2-3.4); MEAN CELL VOLUME 93.6 fL (80-100); MEAN CORPUSCULAR HEMOGLOBIN 30.3 pg (25-34); MEAN CORPUSCULAR HGB CONC 32.4 g/dl (32-36); MEAN PLATELET VOLUME 10.3 fL (7.4-10.4); MONO % 6.4 %; NEUT % 81.5 %; NEUT ABS # 7.68 K/uL (1.4-6.5); PLATELET COUNT 238 K/uL (130-400); RED CELL DISTRIBUTION WIDTH CV 14.6 % (11.5-14.5); RED CELL DISTRIBUTION WIDTH SD 50.2 fL (36.4-46.3); WHITE BLOOD COUNT 9.42 K/uL (4.8-10.8)
[2017-07-05 01:12] LABS: ALBUMIN 2.4 gm/dl (3.4-5.0); CALCIUM 8.8 mg/dl (8.5-10.1); CREATININE 2.5 mg/dl (0.60-1.40); POTASSIUM 4.6 mmol/L (3.5-5.1)
[2017-07-05 01:15] LABS: TOTAL PROTEIN 5.7 gm/dl (6.4-8.2)
[2017-07-05] MEDS ORDERED: PRED10TA PO (01:24)
--- NOTE | 2017-07-05 02:26 | EMERGENCY ROOM VISIT NOTE ---
History Report prepared by Quin: Jonathan Can Under the Supervision of: Dr. Thierry Garcia M.D. First contact with patient: 00:17 Chief Complaint: ABNORMAL LABS Stated Complaint: ELEVATED POTASSIUM/PHYSICIAN REFERRED History of Present Illness The patient is a 77 year old male who presents to the Emergency Room with complaints of constant abnormal labs that started today. The patient reports he has a history of CKD. The patient states he recently was hospitalized due to a fall and syncope. He reports that he was discharged from the hospital last week. The patient states he had follow up with his PCP today where they did blood work. He reports he got a call at 2330 and was told he had hyperkalemia with a level of 6.3 and should report to the ED. The patient denies LOC, headache, fevers, chills, diaphoresis, visual changes, neck pain, chest pain, breathing difficulties, nausea, vomiting, abdominal pain, back pain, melena, hematochezia, urinary symptoms, numbness, weakness, lymphadenopathy, rash, or other complaints. Source of History: patient Onset: today Position: other (global) Quality: other (hyperkalemia) Timing: constant Review of Systems See HPI for pertinent positives and negatives. A total of ten systems were reviewed and were otherwise negative. Past Medical & Surgical Medical Problems: (1) AAA (abdominal aortic aneurysm) (2) CKD (chronic kidney disease), stage IV (3) COPD (chronic obstructive pulmonary disease) (4) Depression (5) DM2 (diabetes mellitus, type 2) (6) HLD (hyperlipidemia) (7) HTN (hypertension) (8) Hypothyroidism (9) JEANNETTE on CPAP Surgical Problems: (1) H/O colonoscopy (2) H/O elbow surgery (3) H/O knee surgery (4) H/O sinus surgery Family History Diabetes mellitus Hypertension Social History Smoking Status: Former Smoker Marital Status: Housing Status: lives with significant other Occupation Status: retired Current/Historical Medications Scheduled Amlodipine (Norvasc), 5 MG PO DAILY Arformoterol Tartrate (Brovana), 15 MCG INH Q12 Aspirin (Aspirin Ec), 81 MG PO DAILY Atenolol/Chlorthalidone (Tenoretic 100 Mg/25 Mg), 0.5 TAB PO DAILY Atorvastatin (Lipitor), 1 TAB PO DAILY Budesonide (Pulmicort Respules 0.5MG/2ML), 2 ML INH Q12 Cholecalciferol (Vitamin D-3), 1,000 MG PO DAILY Fenofibrate (Tricor ), 145 MG PO DAILY Glimepiride (Glimepiride), 2 MG PO DAILY Home O2 Therapy (Oxygen), 3 LITERS NA PRN Levothyroxine Sodium (Synthroid), 100 MCG PO DAILY Mirtazapine (Mirtazapine), 15 MG PO HS Paroxetine (Paxil), 40 MG PO DAILY Pioglitazone (Actos), 30 MG PO DAILY Prednisone Tab (Prednisone), 10 MG PO DIRECTED Scheduled PRN Albuterol Sulfate (Proair Respiclick), 2 PUFFS INH QID PRN for SOB/Wheezing Alprazolam (Xanax), 1 MG PO HS PRN for Sleep Ipratropium-Albuterol (Duoneb), 3 ML INH QID PRN for SOB/Wheezing Tramadol (Ultram), 50 MG PO DAILY PRN for severe pain Allergies Coded Allergies: No Known Allergies (Verified , 07/05/17) Physical Exam Vital Signs Date Time Temp Pulse Resp B/P (MAP) Pulse Ox O2 Delivery O2 Flow Rate FiO2 07/05/17 02:07 66 14 145/68 98 Nasal Cannula 3.0 07/05/17 00:35 80 07/05/17 00:26 36.5 80 17 161/92 99 Nasal Cannula 3.0 Physical Exam GENERAL: Awake, alert, well-appearing, in no distress HENT: Normocephalic, atraumatic. Oropharynx unremarkable. EYES: Normal conjunctiva. Sclera non-icteric. NECK: Supple. No nuchal rigidity. FROM. No masses. RESPIRATORY: Clear to auscultation. No wheezes. No rales. Normal respiratory effort. CARDIAC: Normal rate. Normal rhythm. No murmurs. No rubs. Extremities warm and well perfused. Pulses equal. No JVD. GI: Soft, non-distended. No tenderness to palpation. No rebound or guarding. No masses. RECTAL: Deferred. MUSCULOSKELETAL: Atraumatic. Chest examination reveals no tenderness. The back is symmetrical on inspection without obvious abnormality. There is no CVA tenderness to palpation. No joint edema. LOWER EXTREMITIES: Calves are equal size bilaterally and non-tender. 2+ edema. No discoloration. NEURO: Normal sensorium. No sensory or motor deficits noted. SKIN: No rash or jaundice noted. Medical Decision & Procedures Laboratory Results 07/05/17 00:35 Red Blood Count 3.46, Mean Corpuscular Volume 93.6, Mean Corpuscular Hemoglobin 30.3, Mean Corpuscular Hemoglobin Concent 32.4, Mean Platelet Volume 10.3, Neutrophils (%) (Auto) 81.5, Lymphocytes (%) (Auto) 10.7, Monocytes (%) (Auto) 6.4, Eosinophils (%) (Auto) 0.2, Basophils (%) (Auto) 0.0, Neutrophils # (Auto) 7.68, Lymphocytes # (Auto) 1.01, Monocytes # (Auto) 0.60, Eosinophils # (Auto) 0.02, Basophils # (Auto) 0.00 07/05/17 00:35 07/05/17 01:45 Test 07/05/17 00:35 White Blood Count 9.42 K/uL (4.8-10.8) Red Blood Count 3.46 M/uL (4.7-6.1) Hemoglobin 10.5 g/dL (14.0-18.0) Hematocrit 32.4 % (42-52) Mean Corpuscular Volume 93.6 fL (80-100) Mean Corpuscular Hemoglobin 30.3 pg (25-34) Mean Corpuscular Hemoglobin Concent 32.4 g/dl (32-36) Platelet Count 238 K/uL (130-400) Mean Platelet Volume 10.3 fL (7.4-10.4) Neutrophils (%) (Auto) 81.5 % Lymphocytes (%) (Auto) 10.7 % Monocytes (%) (Auto) 6.4 % Eosinophils (%) (Auto) 0.2 % Basophils (%) (Auto) 0.0 % Neutrophils # (Auto) 7.68 K/uL (1.4-6.5) Lymphocytes # (Auto) 1.01 K/uL (1.2-3.4) Monocytes # (Auto) 0.60 K/uL (0.11-0.59) Eosinophils # (Auto) 0.02 K/uL (0-0.5) Basophils # (Auto) 0.00 K/uL (0-0.2) RDW Standard Deviation 50.2 fL (36.4-46.3) RDW Coefficient of Variation 14.6 % (11.5-14.5) Immature Granulocyte % (Auto) 1.2 % Immature Granulocyte # (Auto) 0.11 K/uL (0.00-0.02) Anion Gap 3.0 mmol/L (3-11) Est Creatinine Clear Calc Drug Dose 45.7 ml/min Estimated GFR () 27.5 Estimated GFR (Non- 23.7 BUN/Creatinine Ratio 20.3 (10-20) Calcium Level 8.8 mg/dl (8.5-10.1) Total Bilirubin 0.5 mg/dl (0.2-1) Direct Bilirubin 0.3 mg/dl (0-0.2) Aspartate Amino Transf (AST/SGOT) 26 U/L (15-37) Alanine Aminotransferase (ALT/SGPT) 29 U/L (12-78) Alkaline Phosphatase 42 U/L (45-117) Total Protein 5.7 gm/dl (6.4-8.2) Albumin 2.4 gm/dl (3.4-5.0) Lipase 154 U/L (73-393) Laboratory results reviewed by me ECG Per My Interpretation Indication: other Rate (beats per minute): 77 Rhythm: sinus rhythm Findings: no acute ischemic change, other (Premature complexes) ED Course 0118: The patient was evaluated in room B07. A complete history and physical exam was performed. 0218: I reevaluated the patient. Discussed results and discharge instructions: He verbalized understanding and agreement. The patient is ready for discharge. Medical Decision The patient presented to the emergency department due to possible abnormal outpatient labs. Etiologies such as electrolyte abnormalities,metabolic, infection, hypo/hyperglycemia, cardiac sources, intracerebral event, toxicologic, neurologic, as well as others were entertained. Clinically he was doing very well. Prior records reviewed. He had a recent hospitalization. The patient has baseline renal disease. His outpatient labs were obtained and his potassium was measured at 6.3. The patient had an unremarkable ECG. No hyperacute T waves. The patient's labs were redrawn. His physical examination was benign. His history was unremarkable as the patient had no complaints. His CBC, chemistry panel were unremarkable except for baseline renal insufficiency. The patient has a normal potassium at 4.6. This was confirmed with a recheck and it again was 4.6. I suspect that the patient has had an abnormal blood draw, possibly due to hemolysis that caused his hyperkalemia result when he truly does not have hyperkalemia. Conservative management was discussed. Patient feels comfortable. He will follow-up as an outpatient. By the evaluation outlined above other emergent etiologies such as those listed in the differential, as well as others, were deemed relatively unlikely. The patient was educated about the findings as listed above. All questions were answered and the patient was pleased with the treatment. Return instructions were outlined and the patient was discharged in stable condition. The patient was referred to his PCP for follow-up for a recheck of the current condition. Medication Reconcilliation Current Medication List: was personally reviewed by me Blood Pressure Screening Patient's blood pressure: Elevated blood pressure Blood pressure disposition: Referred to PCP Impression Primary Impression: evaluation for abnormal labs Scribe Attestation The scribe's documentation has been prepared under my direction and personally reviewed by me in its entirety. I confirm that the note above accurately reflects all work, treatment, procedures, and medical decision making performed by me. Departure Information Dispostion Home / Self-Care Referrals Jayla Yu M.D. (PCP) Patient Instructions My [facility] Additional Instructions Continue current medications. Follow-up with your primary office this week for recheck of your blood pressure and current health. Return to the emergency department for any worsening of your condition, vomiting , chest pain, abdominal pain, or as needed.
[2017-07-05 08:51] VITALS: BP 173/95; PULSE 87; TEMP 36.5; O2SAT 99
== END 2017-07-05 08:45 | disposition home or self-care (01) ==
LOC: EDBD 00:15 → C.EDB 00:16
DX: R79.9 Abnormal finding of blood chemistry, unspecified (principal); I71.4 Abdominal aortic aneurysm, without rupture; N18.4 Chronic kidney disease, stage 4 (severe); J44.9 Chronic obstructive pulmonary disease, unspecified; E11.9 Type 2 diabetes mellitus without complications; E78.5 Hyperlipidemia, unspecified; I10 Essential (primary) hypertension; E03.9 Hypothyroidism, unspecified; G47.33 Obstructive sleep apnea (adult) (pediatric); F32.9 Major depressive disorder, single episode, unspecified

== ENCOUNTER 2018-07-10 12:42 | Inpatient (IN) ==
[2018-07-10 13:37] LABS: Basophils # (auto) 0.04 K/uL (0-0.2); Basophils % (auto) 0.5 %; Eosinophils # (auto) 0.17 K/uL (0-0.5); Eosinophils % (auto) 2.1 %; Hematocrit (blood only) 38.5 % (42-52); Hemoglobin 13.1 g/dL (14.0-18.0); Immature Granulocytes # (auto) 0.02 K/uL (0.00-0.02); Immature Granulocytes % (auto) 0.3 %; Lymphocytes # (auto) 1.57 K/uL (1.2-3.4); Lymphocytes % (auto) 19.6 %; Mean Corpuscular Volume 93.7 fL (80-100); Mean Platelet Volume 11.1 fL (7.4-10.4); Monocytes # (auto) 0.57 K/uL (0.11-0.59); Monocytes % (auto) 7.1 %; Neutrophils # (auto) 5.63 K/uL (1.4-6.5); Neutrophils % (auto) 70.4 %; Platelet Count 297 K/uL (130-400); RDW Coefficient of Variation 14.3 % (11.5-14.5); RDW Standard Deviation 48.9 fL (36.4-46.3); Red Blood Count 4.11 M/uL (4.7-6.1)
[2018-07-10 13:45] LABS: Alanine Aminotransferase 22 U/L (12-78); Albumin Level 3.4 gm/dl (3.4-5.0); Aspartate Aminotransferase 25 U/L (15-37); BUN Creatinine Ratio 14.9 (10-20); Blood Urea Nitrogen 36 mg/dl (7-18); Calcium 10.1 mg/dl (8.5-10.1); Carbon Dioxide 28 mmol/L (21-32); Chloride 101 mmol/L (98-107); Creatinine Clr Calc Pharmacy 28.8 ml/min; Est GFR (African American) 28.1; Est GFR (Non-African American) 24.2; Glucose 226 mg/dl (70-99); Potassium 4.5 mmol/L (3.5-5.1); Sodium 135 mmol/L (136-145)
[2018-07-10 13:55] LABS: Alkaline Phosphatase 45 U/L (45-117); Bilirubin,Total 0.5 mg/dl (0.2-1); Globulin 3.5 gm/dl (2.5-4.0); Total Protein 6.9 gm/dl (6.4-8.2); Troponin I < 0.015 ng/ml (0-0.045)
[2018-07-10] MEDS ORDERED: SODIUM CHLORIDE 0.9% 1000ML 1,000 ML IV ONE (13:59)
--- NOTE | 2018-07-10 14:26 | CT Scan Report ---
CT abd pelvis wo con CT DOSE: 660.33 mGy.cm HISTORY: Pain. Nausea. sent by PCP TECHNIQUE: Multiaxial CT images of the abdomen and pelvis were performed without contrast. A dose lo wering technique was utilized adhering to the principles of ALARA. COMPARISON STUDY: 06/29/2017 FINDINGS: Lung bases are clear. Liver spleen and pancreas are grossly unremarkable. Normal adrenal gl ands. Cortical scarring of the kidneys bilaterally. 2.1 cm nodular density upper pole right kidney. T his is minimally increased in prominence from the prior study and remains indeterminate. Bowel pattern overall is nonobstructive. Normal appendix. Bladder is midline. No free fluid within th e pelvic cul-de-sac. IMPRESSION: 1. No acute process of the abdomen or pelvis. 2. Unchanged 3.4 cm infrarenal abdominal aortic aneurysm. 3. Unchanged/slightly increased in size of a 2.1 cm nodular density upper pole right kidney. This remains indeterminate The above report was generated using voice recognition software. It may contain grammatical, syntax or spelling errors. Electronically signed by: Manoj Hayes M.D. 07/10/2018 2:25 PM
--- NOTE | 2018-07-10 14:29 | XRay Report ---
XR chest 1V portable HISTORY: 78 years-old Male syncope acute syncope COMPARISON: Chest radiograph 12/05/2017 TECHNIQUE: Portable AP view of the chest FINDINGS: Cardiomediastinal and hilar silhouettes are within normal limits. There is no pneumothorax, pleural e ffusion, focal airspace consolidation or overt pulmonary edema. Unchanged moderate hemidiaphragmatic elevation. Degenerative changes of the shoulders and spine. IMPRESSION: No acute process. The above report was generated using voice recognition software. It may contain grammatical, syntax o r spelling errors. Electronically signed by: Robert Cedillo M.D. 07/10/2018 2:27 PM
[2018-07-10 14:51] LABS: INR 1.2 (0.9-1.1); Partial Thromboplastin Ratio 0.8; Prothrombin Time 11.7 Seconds (9.0-12.0)
--- NOTE | 2018-07-10 15:14 | Emergency Department Note ---
Entered by Xiomara Serra acting as a scribe for History of Present Illness General Chief complaint: Syncope Stated complaint: collapse Time Seen by Provider: 07/10/18 13:50 Source: patient History of Present Illness Provider complaint: syncopal episode Onset (ago): hour(s) (today) Location: left and right Quality: + other (syncope) Associated symptoms: + other (dizziness); no chest pain, no headaches and no nausea/vomiting The patient is a 78 year old male who presents to the Emergency Department with complaints of a syncopal episode today. He states that the nurse caught him and that he did not hit his head. The patient states that he saw his doctor at [facility] today to go over results from a CT of his lungs. He denies having any pain currently. He denies having nausea, vomiting, chest pain, and headaches. He does report having slightly dizziness and states that he has fallen from it in the past. He states that he is not on any blood thinners. Home Medications Home Medications Medication Instructions Recorded Confirmed Type albuterol sulfate [ProAir HFA] 2 puff INHALATION Q6H PRN 12/05/17 07/10/18 History aspirin [Aspirin Low Dose] 81 mg PO QAM 12/05/17 07/10/18 History atorvastatin 40 mg PO QAM 12/05/17 07/10/18 History fenofibrate nanocrystallized 145 mg PO QAM 12/05/17 07/10/18 History fluticasone propionate [Flonase 2 spray INTRANASAL DAILY 12/05/17 07/10/18 History Allergy Relief] ipratropium-albuterol 3 ml INHALATION QID PRN 12/05/17 07/10/18 History levothyroxine 100 mcg PO QAM 12/05/17 07/10/18 History tramadol 50 mg PO DAILY PRN 12/05/17 07/10/18 History arformoterol [Brovana] 15 mcg INHALATION Q12H 07/10/18 07/10/18 History atenolol-chlorthalidone 0.5 tab PO DAILY 07/10/18 07/10/18 History budesonide 0.5 mg INHALATION BID 07/10/18 07/10/18 History cyanocobalamin (vitamin B-12) 1,000 mcg PO QAM 07/10/18 07/10/18 History [Vitamin B-12] melatonin 5 mg PO HS PRN 07/10/18 07/10/18 History pioglitazone 15 mg PO DAILY 07/10/18 07/10/18 History ranitidine HCl 150 mg PO DAILY 07/10/18 07/10/18 History sertraline 50 mg PO QAM 07/10/18 07/10/18 History Allergies Allergy/AdvReac Type Severity Reaction Status Date / Time No Known Allergies Allergy Verified 07/10/18 14:06 Past Med/Surg History Medical History Pulmonary embolism (Resolved) 2016 - completed Coumadin therapry DVT (deep venous thrombosis) (Resolved) 2016 - completed Coumadin course GERD (gastroesophageal reflux disease) (Chronic) Oxygen dependent (Chronic) CKD (chronic kidney disease), stage IV (Chronic) HTN (hypertension) (Chronic) DM2 (diabetes mellitus, type 2) (Chronic) COPD (chronic obstructive pulmonary disease) (Chronic) JEANNETTE on CPAP (Chronic) HLD (hyperlipidemia) (Chronic) Hypothyroidism (Chronic) AAA (abdominal aortic aneurysm) (Chronic) "3.2cm, stable" Depression (Chronic) Surgical History History of bursectomy (Chronic) History of total right knee replacement (Chronic) H/O sinus surgery (Chronic) Family History Father Diabetes Mother Hypertension Brother Diabetes Social History Preferred Language: [place] Leone[place] Communication Ability: Effective Calender Wind Up Tender Required: No Beliefs That Will Affect Care: Spiritism Spiritism Beliefs: Restorationist marital status: Current Living Situation: Spouse Other Information That Helps Us Care for You: No Feels Safe at Home: Yes Safety Concerns: Feels Safe At This Time Smoking Status: Former smoker Do You Dip or Chew Tobacco: No Smoking End Date: at age 49 Second Hand Exposure: No Hx Alcohol Use: No (Former, >30 years) Hx Substance Use: No Review of Systems See HPI for pertinent positives & negatives. and A total of 10 systems reviewed and were otherwise negative Physical Exam Vital Signs Vital Signs - 24 hr 07/10/18 12:48 07/10/18 12:51 07/10/18 12:55 Temperature 36.5 C Temperature Source Oral Sepsis Recent Fever Within 48 Hours No Sepsis New/Unexplained Change in Mental Status No Sepsis Action Taken by Nursing No Action Required Pulse Rate - Lying Pulse Rate - Sitting Pulse Rate - Standing Pulse Rate 68 63 Pulse Rate [Apical] Pulse Rate [Radial] Pulse Rate from SpO2 Sensor 56 L 63 Pulse Rhythm Regular Pulse Rhythm [Apical] Respiratory Rate 20 17 Respiratory Effort / Characteristics Non-Labored Spontaneous Respiratory Depth Normal Respiratory Pattern Blood Pressure - Lying Blood Pressure - Sitting Blood Pressure- Standing Blood Pressure 156/78 H 156/78 H Blood Pressure [Left Arm] Blood Pressure [Right Arm] Blood Pressure Mean 104 104 Blood Pressure Mean [Left Arm] Blood Pressure Mean [Right Arm] Blood Pressure Position [Left Arm] Blood Pressure Position [Right Arm] Pulse Oximetry 99 100 100 Oxygen Delivery Method Nasal Cannula Nasal Cannula Nasal Cannula Oxygen Flow Rate 3 3 3 07/10/18 12:59 07/10/18 13:00 07/10/18 13:19 Temperature Temperature Source Sepsis Recent Fever Within 48 Hours Sepsis New/Unexplained Change in Mental Status Sepsis Action Taken by Nursing Pulse Rate - Lying Pulse Rate - Sitting Pulse Rate - Standing Pulse Rate 61 60 Pulse Rate [Apical] 63 Pulse Rate [Radial] Pulse Rate from SpO2 Sensor 60 63 Pulse Rhythm Pulse Rhythm [Apical] Regular Respiratory Rate 18 13 17 Respiratory Effort / Characteristics Non-Labored Spontaneous Respiratory Depth Normal Respiratory Pattern Regular Blood Pressure - Lying Blood Pressure - Sitting Blood Pressure- Standing Blood Pressure 140/74 140/74 Blood Pressure [Left Arm] Blood Pressure [Right Arm] 140/74 Blood Pressure Mean 96 96 Blood Pressure Mean [Left Arm] Blood Pressure Mean [Right Arm] 96 Blood Pressure Position [Left Arm] Blood Pressure Position [Right Arm] Pulse Oximetry 100 100 100 Oxygen Delivery Method Nasal Cannula Nasal Cannula Nasal Cannula Oxygen Flow Rate 3 3 3 07/10/18 13:30 07/10/18 14:00 07/10/18 14:01 Temperature Temperature Source Sepsis Recent Fever Within 48 Hours Sepsis New/Unexplained Change in Mental Status Sepsis Action Taken by Nursing Pulse Rate - Lying Pulse Rate - Sitting Pulse Rate - Standing Pulse Rate 64 62 60 Pulse Rate [Apical] Pulse Rate [Radial] Pulse Rate from SpO2 Sensor 65 60 62 Pulse Rhythm Pulse Rhythm [Apical] Respiratory Rate 15 13 17 Respiratory Effort / Characteristics Respiratory Depth Respiratory Pattern Blood Pressure - Lying Blood Pressure - Sitting Blood Pressure- Standing Blood Pressure 155/89 H 158/80 H 158/80 H Blood Pressure [Left Arm] Blood Pressure [Right Arm] Blood Pressure Mean 111 106 106 Blood Pressure Mean [Left Arm] Blood Pressure Mean [Right Arm] Blood Pressure Position [Left Arm] Blood Pressure Position [Right Arm] Pulse Oximetry 100 100 100 Oxygen Delivery Method Nasal Cannula Nasal Cannula Oxygen Flow Rate 3 3 07/10/18 14:02 07/10/18 14:22 07/10/18 14:30 Temperature Temperature Source Sepsis Recent Fever Within 48 Hours Sepsis New/Unexplained Change in Mental Status Sepsis Action Taken by Nursing Pulse Rate - Lying Pulse Rate - Sitting Pulse Rate - Standing Pulse Rate 60 62 67 Pulse Rate [Apical] Pulse Rate [Radial] Pulse Rate from SpO2 Sensor 63 63 62 Pulse Rhythm Pulse Rhythm [Apical] Respiratory Rate 20 19 22 Respiratory Effort / Characteristics Respiratory Depth Respiratory Pattern Blood Pressure - Lying Blood Pressure - Sitting Blood Pressure- Standing Blood Pressure 176/82 H Blood Pressure [Left Arm] Blood Pressure [Right Arm] Blood Pressure Mean 113 Blood Pressure Mean [Left Arm] Blood Pressure Mean [Right Arm] Blood Pressure Position [Left Arm] Blood Pressure Position [Right Arm] Pulse Oximetry 99 100 100 Oxygen Delivery Method Room Air Room Air Room Air Oxygen Flow Rate 07/10/18 14:31 07/10/18 15:00 07/10/18 15:30 Temperature Temperature Source Sepsis Recent Fever Within 48 Hours Sepsis New/Unexplained Change in Mental Status Sepsis Action Taken by Nursing Pulse Rate - Lying Pulse Rate - Sitting Pulse Rate - Standing Pulse Rate 63 65 74 Pulse Rate [Apical] Pulse Rate [Radial] Pulse Rate from SpO2 Sensor 62 64 69 Pulse Rhythm Pulse Rhythm [Apical] Respiratory Rate 15 15 20 Respiratory Effort / Characteristics Respiratory Depth Respiratory Pattern Blood Pressure - Lying Blood Pressure - Sitting Blood Pressure- Standing Blood Pressure 176/82 H Blood Pressure [Left Arm] Blood Pressure [Right Arm] Blood Pressure Mean 113 Blood Pressure Mean [Left Arm] Blood Pressure Mean [Right Arm] Blood Pressure Position [Left Arm] Blood Pressure Position [Right Arm] Pulse Oximetry 100 100 100 Oxygen Delivery Method Room Air Room Air Room Air Oxygen Flow Rate 07/10/18 15:31 07/10/18 15:32 07/10/18 15:40 Temperature Temperature Source Sepsis Recent Fever Within 48 Hours Sepsis New/Unexplained Change in Mental Status Sepsis Action Taken by Nursing Pulse Rate - Lying Pulse Rate - Sitting Pulse Rate - Standing Pulse Rate 64 64 66 Pulse Rate [Apical] Pulse Rate [Radial] Pulse Rate from SpO2 Sensor 67 64 66 Pulse Rhythm Pulse Rhythm [Apical] Respiratory Rate 16 15 15 Respiratory Effort / Characteristics Respiratory Depth Respiratory Pattern Blood Pressure - Lying Blood Pressure - Sitting Blood Pressure- Standing Blood Pressure 159/100 H 165/92 H Blood Pressure [Left Arm] Blood Pressure [Right Arm] Blood Pressure Mean 119 116 Blood Pressure Mean [Left Arm] Blood Pressure Mean [Right Arm] Blood Pressure Position [Left Arm] Blood Pressure Position [Right Arm] Pulse Oximetry 99 100 98 Oxygen Delivery Method Room Air Nasal Cannula Nasal Cannula Oxygen Flow Rate 3 3 07/10/18 16:00 07/10/18 16:01 07/10/18 16:04 Temperature Temperature Source Sepsis Recent Fever Within 48 Hours Sepsis New/Unexplained Change in Mental Status Sepsis Action Taken by Nursing Pulse Rate - Lying Pulse Rate - Sitting Pulse Rate - Standing Pulse Rate 64 67 78 Pulse Rate [Apical] Pulse Rate [Radial] Pulse Rate from SpO2 Sensor 64 68 Pulse Rhythm Pulse Rhythm [Apical] Respiratory Rate 13 16 18 Respiratory Effort / Characteristics Respiratory Depth Respiratory Pattern Blood Pressure - Lying Blood Pressure - Sitting Blood Pressure- Standing Blood Pressure 160/83 H 142/79 H Blood Pressure [Left Arm] Blood Pressure [Right Arm] Blood Pressure Mean 108 100 Blood Pressure Mean [Left Arm] Blood Pressure Mean [Right Arm] Blood Pressure Position [Left Arm] Blood Pressure Position [Right Arm] Pulse Oximetry 100 100 98 Oxygen Delivery Method Nasal Cannula Nasal Cannula Nasal Cannula Oxygen Flow Rate 3 3 3 07/10/18 16:06 07/10/18 16:12 07/10/18 16:30 Temperature Temperature Source Sepsis Recent Fever Within 48 Hours Sepsis New/Unexplained Change in Mental Status Sepsis Action Taken by Nursing Pulse Rate - Lying 65 Pulse Rate - Sitting 69 Pulse Rate - Standing 74 Pulse Rate 76 67 Pulse Rate [Apical] Pulse Rate [Radial] Pulse Rate from SpO2 Sensor 68 Pulse Rhythm Pulse Rhythm [Apical] Respiratory Rate 19 22 Respiratory Effort / Characteristics Respiratory Depth Respiratory Pattern Blood Pressure - Lying 160/83 H Blood Pressure - Sitting 142/79 H Blood Pressure- Standing 88/48 L Blood Pressure 88/48 L Blood Pressure [Left Arm] Blood Pressure [Right Arm] Blood Pressure Mean 61 Blood Pressure Mean [Left Arm] Blood Pressure Mean [Right Arm] Blood Pressure Position [Left Arm] Blood Pressure Position [Right Arm] Pulse Oximetry 97 98 Oxygen Delivery Method Nasal Cannula Nasal Cannula Oxygen Flow Rate 3 3 07/10/18 17:00 07/10/18 17:30 07/10/18 17:35 Temperature Temperature Source Sepsis Recent Fever Within 48 Hours Sepsis New/Unexplained Change in Mental Status Sepsis Action Taken by Nursing Pulse Rate - Lying Pulse Rate - Sitting Pulse Rate - Standing Pulse Rate 62 67 Pulse Rate [Apical] Pulse Rate [Radial] Pulse Rate from SpO2 Sensor 64 69 Pulse Rhythm Pulse Rhythm [Apical] Respiratory Rate 28 H 16 Respiratory Effort / Characteristics Non-Labored Spontaneous Respiratory Depth Normal Respiratory Pattern Regular Blood Pressure - Lying Blood Pressure - Sitting Blood Pressure- Standing Blood Pressure 169/91 H 158/105 H Blood Pressure [Left Arm] Blood Pressure [Right Arm] Blood Pressure Mean 117 122 Blood Pressure Mean [Left Arm] Blood Pressure Mean [Right Arm] Blood Pressure Position [Left Arm] Blood Pressure Position [Right Arm] Pulse Oximetry 100 100 Oxygen Delivery Method Nasal Cannula Nasal Cannula Nasal Cannula Oxygen Flow Rate 3 3 3 07/10/18 18:00 07/10/18 18:16 07/10/18 19:08 Temperature 36.6 C Temperature Source Oral Sepsis Recent Fever Within 48 Hours Sepsis New/Unexplained Change in Mental Status Sepsis Action Taken by Nursing Pulse Rate - Lying Pulse Rate - Sitting Pulse Rate - Standing Pulse Rate 78 Pulse Rate [Apical] 68 58 L Pulse Rate [Radial] Pulse Rate from SpO2 Sensor Pulse Rhythm Pulse Rhythm [Apical] Respiratory Rate 18 20 16 Respiratory Effort / Characteristics Non-Labored Spontaneous Respiratory Depth Respiratory Pattern Blood Pressure - Lying Blood Pressure - Sitting Blood Pressure- Standing Blood Pressure 156/93 H Blood Pressure [Left Arm] Blood Pressure [Right Arm] 135/81 Blood Pressure Mean Blood Pressure Mean [Left Arm] Blood Pressure Mean [Right Arm] 99 Blood Pressure Position [Left Arm] Blood Pressure Position [Right Arm] Lying Pulse Oximetry 98 91 97 Oxygen Delivery Method Nasal Cannula Room Air Nasal Cannula Oxygen Flow Rate 3 3 07/10/18 20:10 07/10/18 21:45 07/10/18 22:01 Temperature 36.5 C Temperature Source Oral Sepsis Recent Fever Within 48 Hours Sepsis New/Unexplained Change in Mental Status Sepsis Action Taken by Nursing Pulse Rate - Lying 68 Pulse Rate - Sitting 74 Pulse Rate - Standing 76 Pulse Rate 66 Pulse Rate [Apical] Pulse Rate [Radial] Pulse Rate from SpO2 Sensor Pulse Rhythm Pulse Rhythm [Apical] Respiratory Rate Respiratory Effort / Characteristics Respiratory Depth Respiratory Pattern Blood Pressure - Lying 167/81 H Blood Pressure - Sitting 148/73 H Blood Pressure- Standing 113/74 Blood Pressure Blood Pressure [Left Arm] Blood Pressure [Right Arm] Blood Pressure Mean Blood Pressure Mean [Left Arm] Blood Pressure Mean [Right Arm] Blood Pressure Position [Left Arm] Blood Pressure Position [Right Arm] Pulse Oximetry 94 Oxygen Delivery Method Room Air Oxygen Flow Rate 07/10/18 23:00 07/11/18 00:34 07/11/18 03:00 Temperature 36.9 C 36.5 C Temperature Source Oral Oral Sepsis Recent Fever Within 48 Hours Sepsis New/Unexplained Change in Mental Status Sepsis Action Taken by Nursing Pulse Rate - Lying Pulse Rate - Sitting Pulse Rate - Standing Pulse Rate Pulse Rate [Apical] 71 66 Pulse Rate [Radial] Pulse Rate from SpO2 Sensor Pulse Rhythm Pulse Rhythm [Apical] Respiratory Rate 20 20 Respiratory Effort / Characteristics Non-Labored Spontaneous SOB on Exertion Normal for Patient Respiratory Depth Normal Respiratory Pattern Regular Blood Pressure - Lying Blood Pressure - Sitting Blood Pressure- Standing Blood Pressure Blood Pressure [Left Arm] 162/77 H 164/76 H Blood Pressure [Right Arm] Blood Pressure Mean Blood Pressure Mean [Left Arm] 105 105 Blood Pressure Mean [Right Arm] Blood Pressure Position [Left Arm] Lying Blood Pressure Position [Right Arm] Pulse Oximetry 98 99 Oxygen Delivery Method Nasal Cannula Nasal Cannula Nasal Cannula Oxygen Flow Rate 2 3 3 07/11/18 07:20 07/11/18 07:45 07/11/18 07:55 Temperature 36.8 C Temperature Source Oral Sepsis Recent Fever Within 48 Hours Sepsis New/Unexplained Change in Mental Status Sepsis Action Taken by Nursing Pulse Rate - Lying 67 Pulse Rate - Sitting 64 Pulse Rate - Standing 75 Pulse Rate Pulse Rate [Apical] Pulse Rate [Radial] 70 67 Pulse Rate from SpO2 Sensor Pulse Rhythm Pulse Rhythm [Apical] Respiratory Rate 16 18 Respiratory Effort / Characteristics Non-Labored Spontaneous Respiratory Depth Respiratory Pattern Blood Pressure - Lying 157/75 H Blood Pressure - Sitting 124/75 Blood Pressure- Standing 115/72 Blood Pressure Blood Pressure [Left Arm] Blood Pressure [Right Arm] 157/75 H Blood Pressure Mean Blood Pressure Mean [Left Arm] Blood Pressure Mean [Right Arm] 102 Blood Pressure Position [Left Arm] Blood Pressure Position [Right Arm] Pulse Oximetry 98 96 Oxygen Delivery Method Nasal Cannula Oxygen Flow Rate 1 1 GENERAL: Patient is awake alert in no acute distress patient is resting comfortably and showing no signs of anxiety EYES: The conjunctivae are clear. The pupils are round and reactive. EARS, NOSE, MOUTH AND THROAT: The nose is without any evidence of any deformity. Mucous membranes are moist tongue is midline NECK: The neck is nontender and supple. RESPIRATORY: Normal respiratory effort is noted there is no evidence of wheezing rhonchi or rales CARDIOVASCULAR: Regular rate and rhythm noted there no murmurs rubs or gallops normal S1 normal S2 GASTROINTESTINAL: The abdomen is mildly distended but soft. There is no tenderness guarding or rigidity noted. MUSCULOSKELETAL/EXTREMITIES: There is no evidence of gross deformity full range of motion is noted in the hips and shoulders SKIN: There is no obvious evidence of any rash. There are no petechiae, pallor or cyanosis noted. NEUROLOGIC: Patient is awake alert and oriented x3 strength is symmetric patellar reflexes are 2+ bilaterally Course 1352: The patient was evaluated in room C7. A history and physical were performed. 1545: I updated the patient who verbalized agreement and understanding of the treatment plan. 1559: I discussed the patient's case with Raven Yanez who will evaluate the patient for further management. Consultations Consultation #1: Raven Yanez Time: 15:59 Administered Medications Arformoterol Tartrate (Brovana Neb) 15 mcg INH BIDR [facility] Stop: 08/09/18 19:59 Last Admin: 07/11/18 07:20 Dose: 15 mcg Documented by: [id number] Admin: 07/10/18 19:05 Dose: 15 mcg Documented by: [id number] Aspirin (Ecotrin Ectab) 81 mg PO [facility] Stop: 08/10/18 08:59 Last Admin: 07/11/18 08:18 Dose: 81 mg Documented by: [id number] Atorvastatin Calcium ([facility]) [facility] [place] Stop: 08/10/18 08:59 Last Admin: 07/11/18 08:18 Dose: 40 mg Documented by: [id number] Budesonide (Pulmicort Respules) 0.5 mg INH BIDR [facility] Stop: 08/09/18 19:59 Last Admin: 07/11/18 07:20 Dose: 0.5 mg Documented by: [id number] Admin: 07/10/18 19:05 Dose: 0.5 mg Documented by: [id number] Cyanocobalamin (Vitamin B-12) 1,000 mcg PO QAM [facility] Stop: 08/10/18 08:59 Last Admin: 07/11/18 08:18 Dose: 1,000 mcg Documented by: [id number] Fenofibrate (Tricor) 145 mg PO QAM YADIRA Stop: 08/10/18 08:59 Last Admin: 07/11/18 08:18 Dose: 145 mg Documented by: [id number] Heparin Sodium (Porcine) (Heparin Sodium (Porcine)) 5,000 units SQ Q8 YADIRA Stop: 08/09/18 21:59 Last Admin: 07/11/18 05:35 Dose: 5,000 units Documented by: [id number] Cosigned by: [id number] Admin: 07/10/18 20:19 Dose: 5,000 units Documented by: [id number] Cosigned by: [id number] Lactated Ringer's (Lr) 1,000 mls @ 125 mls/hr IV .Q8H YADIRA Stop: 08/09/18 18:39 Last Admin: 07/11/18 04:06 Dose: 125 mls/hr Documented by: [id number] Infusion: 07/11/18 03:10 Dose: 125 mls/hr Documented by: [id number] Admin: 07/10/18 19:10 Dose: 125 mls/hr Documented by: [id number] Insulin Aspart (Novolog Flexpen) 0 units SC ACHS YADIRA Stop: 08/09/18 20:59 Last Admin: 07/10/18 20:19 Dose: Not Given Documented by: [id number] Cosigned by: [id number] Levothyroxine Sodium (Synthroid) 100 mcg PO DAILYBB YADIRA Stop: 08/10/18 06:29 Last Admin: 07/11/18 05:34 Dose: 100 mcg Documented by: [id number] Ranitidine HCl (Zantac) 150 mg PO DAILY YADIRA Stop: 08/10/18 08:59 Last Admin: 07/11/18 08:18 Dose: 150 mg Documented by: [id number] Sertraline HCl (Zoloft) 50 mg PO QAM [facility] Stop: 08/10/18 08:59 Last Admin: 07/11/18 08:18 Dose: 50 mg Documented by: [id number] Discontinued Medications Sodium Chloride (Nss 1000ml) 1,000 mls @ 999 mls/hr IV .Q1H1M ONE Stop: 07/10/18 14:59 Last Infusion: 07/10/18 15:05 Dose: 0 mls/hr Documented by: [id number] Admin: 07/10/18 14:04 Dose: 999 mls/hr Documented by: [id number] Medical Decision Making Differential Diagnosis Differential diagnosis: Etiologies such as vasovagal event, infection, anemia, hypoglycemia, hypovolemi a, electrolyte abnormalities, dysrhythmias, cardiac ischemia, cardiac tamponade, valvular heart disease, structural heart disease, seizure, vascular stenosis/dissection, pulmonary embolism, intracerebral event, toxicological process, neurologic event, as well as others were entertained. Medical Records Attestation: I reviewed the patient's medical records. Home Medications Current Medication List: was personally reviewed by me Laboratory Data Attestation: I reviewed the patient's lab results. Result diagrams: 07/11/18 07:34 07/11/18 07:34 Lab Results 07/10/18 07/10/18 07/10/18 Range/Units 12:50 12:50 14:32 WBC 8.00 (4.8-10.8) K/uL RBC 4.11 L (4.7-6.1) M/uL Hgb 13.1 L (14.0-18.0) g/dL Hct 38.5 L (42-52) % MCV 93.7 (80-100) fL MCH 31.9 (25-34) pg MCHC 34.0 (32-36) g/dL RDW Std Deviation 48.9 H (36.4-46.3) fL RDW Coeff of Luigi 14.3 (11.5-14.5) % Plt Count 297 (130-400) K/uL MPV 11.1 H (7.4-10.4) fL Immature Gran % (Auto) 0.3 % Neut % (Auto) 70.4 % Lymph % (Auto) 19.6 % [place] % (Auto) 7.1 % Eos % (Auto) 2.1 % Baso % (Auto) 0.5 % Immature Gran # (Auto) 0.02 (0.00-0.02) K/uL Neut # (Auto) 5.63 (1.4-6.5) K/uL Lymph # (Auto) 1.57 (1.2-3.4) K/uL [place] # (Auto) 0.57 (0.11-0.59) K/uL Eos # (Auto) 0.17 (0-0.5) K/uL Baso # (Auto) 0.04 (0-0.2) K/uL PT 11.7 (9.0-12.0) Seconds INR 1.2 H (0.9-1.1) APTT 22.0 (21.0-31.0) Seconds PTT Ratio 0.8 Sodium 135 L (136-145) mmol/L Potassium 4.5 (3.5-5.1) mmol/L Chloride 101 (98-107) mmol/L Carbon Dioxide 28 (21-32) mmol/L Anion Gap 6.0 (3-11) BUN 36 H (7-18) mg/dl Creatinine 2.44 H (0.6-1.4) mg/dl Est Cr Clr Drug Dosing 28.8 ml/min Est GFR ( Amer) 28.1 Est GFR (Non-Af Amer) 24.2 BUN/Creatinine Ratio 14.9 (10-20) Glucose 226 H (70-99) mg/dl POC Glucose (70-99) Calcium 10.1 (8.5-10.1) mg/dl Total Bilirubin 0.5 (0.2-1) mg/dl AST 25 (15-37) U/L ALT 22 (12-78) U/L Alkaline Phosphatase 45 (45-117) U/L Troponin I < 0.015 (0-0.045) ng/ml Total Protein 6.9 (6.4-8.2) gm/dl Albumin 3.4 (3.4-5.0) gm/dl Globulin 3.5 (2.5-4.0) gm/dl Albumin/Globulin Ratio 1.0 (0.9-2) Triglycerides (0-150) mg/dl Cholesterol (0-200) mg/dl LDL Cholesterol, Calc mg/dl VLDL Cholesterol, Calc mg/dl HDL Cholesterol mg/dl Cholesterol/HDL Ratio Lipase 1267 H (73-393) U/L TSH 3.330 (0.300-4.500) uIu/ml 07/10/18 07/10/18 07/10/18 Range/Units 14:32 14:37 19:25 WBC (4.8-10.8) K/uL RBC (4.7-6.1) M/uL Hgb (14.0-18.0) g/dL Hct (42-52) % MCV (80-100) fL MCH (25-34) pg MCHC (32-36) g/dL RDW Std Deviation (36.4-46.3) fL RDW Coeff of Luigi (11.5-14.5) % Plt Count (130-400) K/uL MPV (7.4-10.4) fL Immature Gran % (Auto) % Neut % (Auto) % Lymph % (Auto) % [place] % (Auto) % Eos % (Auto) % Baso % (Auto) % Immature Gran # (Auto) (0.00-0.02) K/uL Neut # (Auto) (1.4-6.5) K/uL Lymph # (Auto) (1.2-3.4) K/uL [place] # (Auto) (0.11-0.59) K/uL Eos # (Auto) (0-0.5) K/uL Baso # (Auto) (0-0.2) K/uL PT (9.0-12.0) Seconds INR (0.9-1.1) APTT (21.0-31.0) Seconds PTT Ratio Sodium (136-145) mmol/L Potassium (3.5-5.1) mmol/L Chloride (98-107) mmol/L Carbon Dioxide (21-32) mmol/L Anion Gap (3-11) BUN (7-18) mg/dl Creatinine (0.6-1.4) mg/dl Est Cr Clr Drug Dosing ml/min Est GFR ( Amer) Est GFR (Non-Af Amer) BUN/Creatinine Ratio (10-20) Glucose (70-99) mg/dl POC Glucose 138 H (70-99) Calcium (8.5-10.1) mg/dl Total Bilirubin (0.2-1) mg/dl AST (15-37) U/L ALT (12-78) U/L Alkaline Phosphatase (45-117) U/L Troponin I < 0.015 (0-0.045) ng/ml Total Protein (6.4-8.2) gm/dl Albumin (3.4-5.0) gm/dl Globulin (2.5-4.0) gm/dl Albumin/Globulin Ratio (0.9-2) Triglycerides 226 H (0-150) mg/dl Cholesterol 133 (0-200) mg/dl LDL Cholesterol, Calc 63 mg/dl VLDL Cholesterol, Calc 45 mg/dl HDL Cholesterol 25 mg/dl Cholesterol/HDL Ratio 5 Lipase (73-393) U/L TSH (0.300-4.500) uIu/ml 07/11/18 07/11/18 07/11/18 Range/Units 00:19 07:34 07:34 WBC 8.29 (4.8-10.8) K/uL RBC 3.44 L (4.7-6.1) M/uL Hgb 10.6 L (14.0-18.0) g/dL Hct 31.8 L (42-52) % MCV 92.4 (80-100) fL MCH 30.8 (25-34) pg MCHC 33.3 (32-36) g/dL RDW Std Deviation 48.9 H (36.4-46.3) fL RDW Coeff of Luigi 14.3 (11.5-14.5) % Plt Count 196 (130-400) K/uL MPV 10.1 (7.4-10.4) fL Immature Gran % (Auto) % Neut % (Auto) % Lymph % (Auto) % [place] % (Auto) % Eos % (Auto) % Baso % (Auto) % Immature Gran # (Auto) (0.00-0.02) K/uL Neut # (Auto) (1.4-6.5) K/uL Lymph # (Auto) (1.2-3.4) K/uL [place] # (Auto) (0.11-0.59) K/uL Eos # (Auto) (0-0.5) K/uL Baso # (Auto) (0-0.2) K/uL PT (9.0-12.0) Seconds INR (0.9-1.1) APTT (21.0-31.0) Seconds PTT Ratio Sodium 138 (136-145) mmol/L Potassium 4.0 (3.5-5.1) mmol/L Chloride 105 (98-107) mmol/L Carbon Dioxide 28 (21-32) mmol/L Anion Gap 5.0 (3-11) BUN 33 H (7-18) mg/dl Creatinine 1.89 H D (0.6-1.4) mg/dl Est Cr Clr Drug Dosing 36.6 ml/min Est GFR ( Amer) 38.3 Est GFR (Non-Af Amer) 33.0 BUN/Creatinine Ratio 17.4 (10-20) Glucose 117 H (70-99) mg/dl POC Glucose 127 H (70-99) Calcium 9.4 (8.5-10.1) mg/dl Total Bilirubin 0.6 (0.2-1) mg/dl AST 23 (15-37) U/L ALT 18 (12-78) U/L Alkaline Phosphatase 39 L (45-117) U/L Troponin I (0-0.045) ng/ml Total Protein 5.7 L (6.4-8.2) gm/dl Albumin 3.0 L (3.4-5.0) gm/dl Globulin 2.7 (2.5-4.0) gm/dl Albumin/Globulin Ratio 1.1 (0.9-2) Triglycerides (0-150) mg/dl Cholesterol (0-200) mg/dl LDL Cholesterol, Calc mg/dl VLDL Cholesterol, Calc mg/dl HDL Cholesterol mg/dl Cholesterol/HDL Ratio Lipase 903 H (73-393) U/L TSH (0.300-4.500) uIu/ml 07/11/18 Range/Units 07:47 WBC (4.8-10.8) K/uL RBC (4.7-6.1) M/uL Hgb (14.0-18.0) g/dL Hct (42-52) % MCV (80-100) fL MCH (25-34) pg MCHC (32-36) g/dL RDW Std Deviation (36.4-46.3) fL RDW Coeff of Luigi (11.5-14.5) % Plt Count (130-400) K/uL MPV (7.4-10.4) fL Immature Gran % (Auto) % Neut % (Auto) % Lymph % (Auto) % [place] % (Auto) % Eos % (Auto) % Baso % (Auto) % Immature Gran # (Auto) (0.00-0.02) K/uL Neut # (Auto) (1.4-6.5) K/uL Lymph # (Auto) (1.2-3.4) K/uL [place] # (Auto) (0.11-0.59) K/uL Eos # (Auto) (0-0.5) K/uL Baso # (Auto) (0-0.2) K/uL PT (9.0-12.0) Seconds INR (0.9-1.1) APTT (21.0-31.0) Seconds PTT Ratio Sodium (136-145) mmol/L Potassium (3.5-5.1) mmol/L Chloride (98-107) mmol/L Carbon Dioxide (21-32) mmol/L Anion Gap (3-11) BUN (7-18) mg/dl Creatinine (0.6-1.4) mg/dl Est Cr Clr Drug Dosing ml/min Est GFR ( Amer) Est GFR (Non-Af Amer) BUN/Creatinine Ratio (10-20) Glucose (70-99) mg/dl POC Glucose 127 H (70-99) Calcium (8.5-10.1) mg/dl Total Bilirubin (0.2-1) mg/dl AST (15-37) U/L ALT (12-78) U/L Alkaline Phosphatase (45-117) U/L Troponin I (0-0.045) ng/ml Total Protein (6.4-8.2) gm/dl Albumin (3.4-5.0) gm/dl Globulin (2.5-4.0) gm/dl Albumin/Globulin Ratio (0.9-2) Triglycerides (0-150) mg/dl Cholesterol (0-200) mg/dl LDL Cholesterol, Calc mg/dl VLDL Cholesterol, Calc mg/dl HDL Cholesterol mg/dl Cholesterol/HDL Ratio Lipase (73-393) U/L TSH (0.300-4.500) uIu/ml Imaging Data Radiologist's Impression: Radiology results as stated below per my review and the radiologist's interpretation: XR chest 1V portable HISTORY: 78 years-old Male syncope acute syncope COMPARISON: Chest radiograph 12/05/2017 TECHNIQUE: Portable AP view of the chest FINDINGS: Cardiomediastinal and hilar silhouettes are within normal limits. There is no pneumothorax, pleural effusion, focal airspace consolidation or overt pulmonary edema. Unchanged moderate hemidiaphragmatic elevation. Degenerative changes of the shoulders and spine. IMPRESSION: No acute process. The above report was generated using voice recognition software. It may contain grammatical, syntax or spelling errors. Electronically signed by: Robert Cedillo M.D. 07/10/2018 2:[address] abd pelvis wo con CT DOSE: 660.33 mGy.cm HISTORY: Pain. Nausea. sent by PCP TECHNIQUE: Multiaxial CT images of the abdomen and pelvis were performed without contrast. A dose lowering technique was utilized adhering to the principles of ALARA. COMPARISON STUDY: 06/29/2017 FINDINGS: Lung bases are clear. Liver spleen and pancreas are grossly unremarkable. Normal adrenal glands. Cortical scarring of the kidneys bilaterally. 2.1 cm nodular density upper pole right kidney. This is minimally increased in prominence from the prior study and remains indeterminate. Bowel pattern overall is nonobstructive. Normal appendix. Bladder is midline. No free fluid within the pelvic cul-de-sac. IMPRESSION: 1. No acute process of the abdomen or pelvis. 2. Unchanged 3.4 cm infrarenal abdominal aortic aneurysm. 3. Unchanged/slightly increased in size of a 2.1 cm nodular density upper pole right kidney. This remains indeterminate The above report was generated using voice recognition software. It may contain grammatical, syntax or spelling errors. Electronically signed by: Manoj Hayes M.D. 07/10/2018 2:25 PM ECG Data Attestation: I personally reviewed and interpreted this ECG as follows: Indication: syncope Rate (beats per minute): 63 Rhythm: normal sinus Findings: no PAC, no PVC, no ST depression, no ST elevation, no acute ischemic change and no ectopy Comparison ECG Date: from (12/05/17) Change: no significant change Blood Pressure Blood Pressure Findings: Elevated blood pressure Blood Pressure Disposition: further management by hospitalist [facility] Narrative The patient is a 78-year-old male who presented to the emergency department for orthostatic hypotension. Patient was treated with IV fluid in the emergency department. He also had an outpatient CAT scan which revealed an area of possible pancreatitis. The patient was found to have an elevated lipase. He did have some abdominal pain but this does not appear to be consistent with an acute surgical abdomen at this time. I discussed the patient's laboratory and radiographic studies with him. I also discussed this case with the on-call [facility] hospitalist group. They have agreed to evaluate the patient in the emergency department for further management and disposition. Impression & Plan Syncope, Pancreatitis, Abdominal pain, Orthostatic hypotension Discharge Plan Visit Data *Final* Discharge Date/Time: 07/10/18 18:00 Chief Complaint: Syncope Stated Complaint: collapse ED Provider: Jas Harris Discharge Problem: Syncope, Pancreatitis, Abdominal pain, Orthostatic hypotension Patient Disposition: Admitted As Inpatient Discharge Instructions Interventions: ED Discharge Assessment Last Done: 07/10/18 18:00 The scribe's documentation has been prepared under my direction and personally reviewed by me in its entirety. I confirm that the note above accurately reflects all work, treatment, procedures, and medical decision making performed by me.
--- NOTE | 2018-07-10 17:31 | History & Physical Report ---
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 -In the ED, patient found to have positive orthostatic blood pressures -Possibly secondary to hypovolemia in combination with continued use of atenolol/chlorthalidone, patient reports oral intake has been down over the past 1 week -Per review of outpatient records, patient has been having presyncopal symptoms over the past few months and subsequently amlodipine was discontinued and atenolol/chlorthalidone was decreased -Hold atenolol/chlorthalidone, give IVF, continue to monitor orthostatic BPs -Troponin negative, EKG without acute ST changes (3) Elevated lipase: -History of pancreatitis in 2016 with unknown cause -Lipase 1267 -Noted normal other LFTs -Minimal epigastric tenderness on exam -Outpatient chest CT from 06/24/2018 had an incidental finding of pancreatic head fullness -CT ABD/pelvis without contrast today negative for acute findings -Unable to obtain CT abdomen with IV contrast secondary to underlying CKD, MRCP ordered -LR, clear liquids, n.p.o. after midnight -GI consult, case discussed with SANKET Thompson (4) Weight loss: -Patient has had unintentional weight loss of 50 pounds over the past 6 months -Was scheduled for outpatient colonoscopy however patient canceled -Appreciate GI input (5) CKD (chronic kidney disease), stage IV: - baseline creat runs in the low 2's - creat noted to be 2.4 today - continue to monitor, avoid nephrotoxic agents when able (6) DM2 (diabetes mellitus, type 2): -HgbA1c 6.1 05/2018 -Hold oral agents and utilize NovoLog protocol while hospitalized (7) COPD (chronic obstructive pulmonary disease): (8) Oxygen dependent: -Stable, no signs of acute exacerbation -Saturating well on chronic 3 L of oxygen -Continue home inhalers (9) JEANNETTE on CPAP: -CPAP at bedtime as per home settings (10) HLD (hyperlipidemia): -Continue statin and fenofibrate (11) Hypothyroidism: -Continue levothyroxine (12) Depression: -Continue sertraline (13) AAA (abdominal aortic aneurysm): -Stable at 3.[address] (14) GERD (gastroesophageal reflux disease): -Continue H2 lottie (15) DVT prophylaxis: -SQ heparin History of Present Illness Chief Complaint: Syncope Primary Care Provider: Jayla Yu MD 78-year-old male who presents to the ED for evaluation of syncopal event. Patient was at his outpatient patient coordinator front desk office when he experienced a syncopal event. Patient reports that over the past couple of months he has been having episodes of lightheadedness and dizziness with standing. Over the past 1 week, he has had a few syncopal episodes at home. Today at his patient coordinator front desk office, patient had 2 syncopal events and was noted to be hypertensive. He was sent to the ER for further evaluation. Patient denies associated chest pain. He has chronic exertional shortness of breath which is unchanged from baseline. He does note a significant weight loss over the past several months, believes about 50 pounds in the past 6 months. This is been unintentional. Patient was scheduled for colonoscopy however reports he canceled it. Patient reports some epigastric abdominal pain which she describes as " hunger pain". Reports it resolves after he gets something to eat and denies any postprandial abdominal pain. He denies nausea, vomiting, diarrhea. No fevers chills. He denies any urinary symptoms. Of note, patient had an outpatient chest CT on 06/24/2018 that incidentally noted mild pancreatic head fullness. In the ED, patient was found to have positive orthostatic blood pressures. Per review of outpatient records, it seems as though patient has been having presyncopal symptoms over the past few months and subsequently amlodipine was discontinued and atenolol/chlorthalidone was decreased. Patient was given IVF. Lipase is 1267, other labs unremarkable. CT ABD/pelvis without contrast is negative for acute findings. Allergies Allergy/AdvReac Type Severity Reaction Status Date / Time No Known Allergies Allergy Verified 07/10/18 14:06 Home Medications Home Medications Medication Instructions Recorded Confirmed Type albuterol sulfate [ProAir HFA] 2 puff INHALATION Q6H PRN 12/05/17 07/10/18 History aspirin [Aspirin Low Dose] 81 mg PO QAM 12/05/17 07/10/18 History atorvastatin 40 mg PO QAM 12/05/17 07/10/18 History fenofibrate nanocrystallized 145 mg PO QAM 12/05/17 07/10/18 History fluticasone propionate [Flonase 2 spray INTRANASAL DAILY 12/05/17 07/10/18 History Allergy Relief] ipratropium-albuterol 3 ml INHALATION QID PRN 12/05/17 07/10/18 History levothyroxine 100 mcg PO QAM 12/05/17 07/10/18 History tramadol 50 mg PO DAILY PRN 12/05/17 07/10/18 History arformoterol [Brovana] 15 mcg INHALATION Q12H 07/10/18 07/10/18 History atenolol-chlorthalidone 0.5 tab PO DAILY 07/10/18 07/10/18 History budesonide 0.5 mg INHALATION BID 07/10/18 07/10/18 History cyanocobalamin (vitamin B-12) 1,000 mcg PO QAM 07/10/18 07/10/18 History [Vitamin B-12] melatonin 5 mg PO HS PRN 07/10/18 07/10/18 History pioglitazone 15 mg PO DAILY 07/10/18 07/10/18 History ranitidine HCl 150 mg PO DAILY 07/10/18 07/10/18 History sertraline 50 mg PO QAM 07/10/18 07/10/18 History Past Med/Surg History Medical History Pulmonary embolism (Resolved) 2015 - completed Coumadin therapry DVT (deep venous thrombosis) (Resolved) 2015 - completed Coumadin course GERD (gastroesophageal reflux disease) (Chronic) Oxygen dependent (Chronic) CKD (chronic kidney disease), stage IV (Chronic) HTN (hypertension) (Chronic) DM2 (diabetes mellitus, type 2) (Chronic) COPD (chronic obstructive pulmonary disease) (Chronic) JEANNETTE on CPAP (Chronic) HLD (hyperlipidemia) (Chronic) Hypothyroidism (Chronic) AAA (abdominal aortic aneurysm) (Chronic) "3.2cm, stable" Depression (Chronic) Surgical History History of bursectomy (Chronic) History of total right knee replacement (Chronic) H/O sinus surgery (Chronic) Family History Father Diabetes Mother Hypertension Brother Diabetes Social History Preferred Language: Macedonian Communication Ability: Effective 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: No Beliefs That Will Affect Care: Evangelical Evangelical Beliefs: Anabaptist marital status: Current Living Situation: Spouse Other Information That Helps Us Care for You: No Feels Safe at Home: Yes Safety Concerns: Feels Safe At This Time Smoking Status: Former smoker Do You Dip or Chew Tobacco: No Smoking End Date: at age 49 Second Hand Exposure: No Hx Alcohol Use: No (Former, >30 years) Hx Substance Use: No Review of Systems Review of Systems: ROS per HPI, all other systems reviewed and negative Physical Exam Constitutional: WD/WN, vitals as above Eyes: PERRL, conjunctivae normal, anicteric sclerae ENMT: external ear and nose normal, oropharynx normal Respiratory: normal respiratory effort; no respiratory distress Auscultation: + diminished lung sounds Cardiovascular: Rate/Rhythm: regular rate and regular rhythm Vessels: normal peripheral pulses Extremities: no edema Gastrointestinal (Abdomen): Inspection/Auscultation: normal bowel sounds; abdomen not distended Percussion/Palpation: + abdomen tender (Mild, epigastric) and abdomen soft; no hepatosplenomegaly Musculoskeletal: no cyanosis or clubbing, extremities motor strength 5/5 Skin: no rashes, warm and dry Neurologic: PERRL, EOMI, accommodation nl, no face palsy, no dysarthria Psychiatric: A+Ox3, euthymic affect Results & Data Vital Signs (Past 12 Hours) Vital Signs Temp Pulse Pulse Resp BP BP Pulse Ox 07/10/18 15:31 64 16 159/100 H 99 07/10/18 15:30 74 20 100 07/10/18 15:00 65 15 100 07/10/18 14:31 63 15 176/82 H 100 07/10/18 14:30 67 22 100 07/10/18 14:22 62 19 176/82 H 100 07/10/18 14:02 60 20 99 07/10/18 14:01 60 17 158/80 H 100 07/10/18 14:00 62 13 158/80 H 100 07/10/18 13:30 64 15 155/89 H 100 07/10/18 13:19 60 17 140/74 100 07/10/18 13:00 61 13 140/74 100 07/10/18 12:59 63 18 140/74 100 07/10/18 12:55 100 07/10/18 12:51 36.5 C 63 17 156/78 H 100 07/10/18 12:48 68 20 156/78 H 99 Laboratory Results Laboratory Last Values WBC 8.00 K/uL (4.8-10.8) 07/10/18 12:50 RBC 4.11 M/uL (4.7-6.1) L 07/10/18 12:50 Hgb 13.1 g/dL (14.0-18.0) L 07/10/18 12:50 Hct 38.5 % (42-52) L 07/10/18 12:50 MCV 93.7 fL (80-100) 07/10/18 12:50 MCH 31.9 pg (25-34) 07/10/18 12:50 MCHC 34.0 g/dL (32-36) 07/10/18 12:50 RDW Std Deviation 48.9 fL (36.4-46.3) H 07/10/18 12:50 RDW Coeff of Luigi 14.3 % (11.5-14.5) 07/10/18 12:50 Plt Count 297 K/uL (130-400) 07/10/18 12:50 MPV 11.1 fL (7.4-10.4) H 07/10/18 12:50 Immature Gran % (Auto) 0.3 % 07/10/18 12:50 Neut % (Auto) 70.4 % 07/10/18 12:50 Lymph % (Auto) 19.6 % 07/10/18 12:50 [place] % (Auto) 7.1 % 07/10/18 12:50 Eos % (Auto) 2.1 % 07/10/18 12:50 Baso % (Auto) 0.5 % 07/10/18 12:50 Immature Gran # (Auto) 0.02 K/uL (0.00-0.02) 07/10/18 12:50 Neut # (Auto) 5.63 K/uL (1.4-6.5) 07/10/18 12:50 Lymph # (Auto) 1.57 K/uL (1.2-3.4) 07/10/18 12:50 [place] # (Auto) 0.57 K/uL (0.11-0.59) 07/10/18 12:50 Eos # (Auto) 0.17 K/uL (0-0.5) 07/10/18 12:50 Baso # (Auto) 0.04 K/uL (0-0.2) 07/10/18 12:50 PT 11.7 Seconds (9.0-12.0) 07/10/18 14:32 INR 1.2 (0.9-1.1) H 07/10/18 14:32 APTT 22.0 Seconds (21.0-31.0) 07/10/18 14:32 PTT Ratio 0.8 07/10/18 14:32 Sodium 135 mmol/L (136-145) L 07/10/18 12:50 Potassium 4.5 mmol/L (3.5-5.1) 07/10/18 12:50 Chloride 101 mmol/L (98-107) 07/10/18 12:50 Carbon Dioxide 28 mmol/L (21-32) 07/10/18 12:50 Anion Gap 6.0 (3-11) 07/10/18 12:50 BUN 36 mg/dl (7-18) H 07/10/18 12:50 Creatinine 2.44 mg/dl (0.6-1.4) H 07/10/18 12:50 Est Cr Clr Drug Dosing 28.8 ml/min 07/10/18 12:50 Est GFR ( Amer) 28.1 07/10/18 12:50 Est GFR (Non-Af Amer) 24.2 07/10/18 12:50 BUN/Creatinine Ratio 14.9 (10-20) 07/10/18 12:50 Glucose 226 mg/dl (70-99) H 07/10/18 12:50 Calcium 10.1 mg/dl (8.5-10.1) 07/10/18 12:50 Total Bilirubin 0.5 mg/dl (0.2-1) 07/10/18 12:50 AST 25 U/L (15-37) 07/10/18 12:50 ALT 22 U/L (12-78) 07/10/18 12:50 Alkaline Phosphatase 45 U/L (45-117) 07/10/18 12:50 Troponin I < 0.015 ng/ml (0-0.045) 07/10/18 14:32 Total Protein 6.9 gm/dl (6.4-8.2) 07/10/18 12:50 Albumin 3.4 gm/dl (3.4-5.0) 07/10/18 12:50 Globulin 3.5 gm/dl (2.5-4.0) 07/10/18 12:50 Albumin/Globulin Ratio 1.0 (0.9-2) 07/10/18 12:50 Lipase 1267 U/L (73-393) H 07/10/18 12:50 TSH 3.330 uIu/ml (0.300-4.500) 07/10/18 12:50 Diagnostic Findings CXR IMPRESSION: No acute process. CT ABD/PELVIS IMPRESSION: 1. No acute process of the abdomen or pelvis. 2. Unchanged 3.4 cm infrarenal abdominal aortic aneurysm. 3. Unchanged/slightly increased in size of a 2.1 cm nodular density upper pole right kidney. This remains indeterminate Code Status & VTE Plan Code Status Patient is a full code without mechanical ventilation as per my discussion with him. VTE Prophylaxis Plan VTE Prophylaxis will be ordered: No Supervising Physician Co-Signing Physician Notes I have seen and examined the patient and have discussed the case with the provider above. I agree with the assessment and plan as stated with the following exceptions. 78 yo pleasant man in no acute distress reports two episodes of syncope in the past 3 days and significant lightheadedness with standing for longer than that. Prior to each event, he had gotten up from a sitting position and felt an onset of dizziness as if he were going to pass out, then fell and didn't remember hitting the floor either time. When he awoke on the floor he was lucid, and denied losing control of his bowels or bladder. He denied any palpitations or chest pain. He reports that two weeks ago he stopped drinking liquids aside from a small tea in the mornings because he just didn't feel like drinking liquid. He reports being very sedentary at home and desires to do more and be more conditioned. He reports chronic dyspnea on exertion where he needs to stop every 25 feet or so, and if asked to walk to the back of a doctor's office, he will opt to go in a wheelchair. He states this is unchanged for a long time, and he is on 09/10 oxygen at 3L for COPD. He reports being noncompliant with CPAP until he recently was able to fix his machine; he declines a hospital CPAP overnight tonight. He reports no issues with nausea or vomiting and no issues with eating food. He denies changes in bowels. He has a h/o pancreatitis in the past as above. He appears hypovolemic to euvolemic on exam. Lungs are clear and heart sounds are normal. Abdomen is soft, nondistended and nontender. He in not in heart failure and denies orthopnea, swelling or PND. He reports his weight loss was mostly while he was at [facility] in Oct 2017 because he didn't enjoy the food. He reports feeling better since his provider decreased his BP medication dose. Syncope likely 2/2 orthostatic hypotension in the setting of an elevated lipase level and poor PO intake of liquid. This is in the setting of abnormal CT indicated pancreatic head fullness earlier this month. Case was discussed with GI and continue with plan as above including MRCP. As the patient clearly fell, a CT head was ordered and did not reveal an acute intracranial abnormality. DO Chris
[2018-07-10] MEDS ORDERED: TRAMADOL HCL 50 MG TABLET PO PRN (18:40)
[2018-07-10] MEDS ORDERED: GLUCOSE 10 TABS/TUBE PO PRN (18:40)
[2018-07-10] MEDS ORDERED: ALBUT/IPRATROP 3MG/0.5MG NEB 3 ML VIAL INH PRN (18:40)
[2018-07-10] MEDS ORDERED: GLUCAGON FOR INJ 1 MG VIAL SQ PRN (18:40)
[2018-07-10] MEDS ORDERED: DEXTROSE 50% 50 ML SYRINGE IV PRN (18:40)
[2018-07-10] MEDS ORDERED: GLUCOSE 40% GEL 15 GM TUBE PO PRN (18:40)
[2018-07-10] MEDS ORDERED: CARBOHYDRATES FOR HYPOGLYCEMIA PO PRN (18:40)
[2018-07-10] MEDS ORDERED: ACETAMINOPHEN 325 MG TAB PO PRN (18:40)
[2018-07-10] MEDS: BUDESONIDE 0.5 MG/2 ML VIAL (PULMICORT) INH SCH (19:05)
[2018-07-10] MEDS: ARFORMOTEROL TART 15MCG/2ML VIAL INH SCH (19:05)
[2018-07-10] MEDS: LACTATED RINGER'S 1,000 ML IV SCH (19:10)
[2018-07-10 19:12] LABS: Chol HDL Ratio 5; Cholesterol 133 mg/dl (0-200); HDL Cholesterol 25 mg/dl; LDL Cholesterol Calculated 63 mg/dl; Triglycerides 226 mg/dl (0-150); VLDL Cholesterol 45 mg/dl
[2018-07-10] MEDS: INSULIN ASPART 100 UNITS/ML 3 ML PEN SC SCH (20:19)
[2018-07-10] MEDS: HEPARIN SOD 5,000 UNIT/0.5 ML VIAL SQ SCH (20:19)
--- NOTE | 2018-07-10 21:31 | CT Scan Report ---
HEAD CT NONCONTRAST CT DOSE: 614.27 mGy.cm HISTORY: syncope TECHNIQUE: Multiaxial CT images of the head were performed without the use of intravenous contrast. A utomated exposure control was utilized for this study. A dose lowering technique was utilized adheri ng to the principles of ALARA. Comparison: Head CT 11/22/2017. Findings: The paranasal sinuses and mastoid air cells are clear. The calvarium and skull base are int act. There is no mass, hematoma, midline shift, acute infarct. White matter hypodensity is nonspecifi c but suggestive of microvascular ischemic change. The ventricles and sulci demonstrate mild age-rela demarcus involutional changes. Impression: No significant change compared to the prior study. No acute intracranial abnormality. Electronically signed by: Marko France M.D. 07/10/2018 9:30 PM
[2018-07-11] MEDS: LACTATED RINGER'S 1,000 ML IV SCH ×3 (04:06→20:21)
[2018-07-11] MEDS: LEVOTHYROXINE SODIUM 100 MCG TABLET PO SCH (05:34)
[2018-07-11] MEDS: HEPARIN SOD 5,000 UNIT/0.5 ML VIAL SQ SCH ×3 (05:35→20:41)
--- NOTE | 2018-07-11 07:17 | Magnetic Resonance Report ---
MR MRCP CLINICAL HISTORY: 78 years-old Male presenting with elevated lipase. TECHNIQUE: Multisequence, multiplanar MR imaging of the abdomen was performed without the use of intr avenous contrast. Dedicated MRCP protocol was utilized. 3-D volumetric and/or maximum intensity proje ction (MIP) images were subsequently reconstructed for review. IV contrast: None. COMPARISON: CT from 07/10/2018 . FINDINGS: Localizer images: Unremarkable. Lung bases: Lung base clear. Normal heart size. No pericardial or pleural effusion. Liver: Normal morphology. Biliary: Conventional intrahepatic biliary bifurcation. No intrahepatic or extrahepatic biliary ducta l dilatation. No evidence of common duct calculi. Normal gallbladder. Pancreas: Trace fluid noted along the dorsal aspect of the pancreatic tail. Mild atrophy of the pancr eatic parenchyma. No fluid collection within the parenchyma or peripancreatic regions. Dilatation of the main pancreatic duct at the level of the pancreatic head with the remainder of the pancreatic susie t is normal in caliber. No evidence of pancreatic ductal calculi. Spleen: Normal noncontrast appearance. Adrenal glands: Normal noncontrast appearance. Kidneys and ureters: 2.3 cm heterogeneously T2 hyperintense lesion arising from the interpolar region of the right kidney. The appearance suggests a solid lesion rather than cystic. Overall bilateral re nal atrophy. No hydronephrosis. Bowel: Normal noncontrast appearance. No bowel obstruction. Peritoneal cavity: No free fluid intraperitoneal fluid. Trace retroperitoneal fluid along the greater detail. Lymph nodes: No gross lymphadenopathy allowing for noncontrast technique. Vasculature: Normal noncontrast appearance. Abdominal wall: Normal. Musculoskeletal: Degenerative changes of the spine. IMPRESSION: 1. No cholelithiasis or choledocholithiasis. 2. Trace fluid along the pancreatic tail characteristic of mild interstitial edematous pancreatitis. No acute peripancreatic fluid collection. 3. Focal dilatation of the pancreatic duct at the level the pancreatic head. No pancreatic ductal ca lculi. This is nonspecific. 4. Suspected solid 2.3 cm right renal mass. Renal neoplasm is not excluded. Dedicated imaging of the kidneys would be required to better characterize this lesion if clinically desired. Electronically signed by: Humberto Piña M.D. 07/11/2018 7:16 AM
[2018-07-11] MEDS: BUDESONIDE 0.5 MG/2 ML VIAL (PULMICORT) INH SCH ×2 (07:20→19:13)
[2018-07-11] MEDS: ARFORMOTEROL TART 15MCG/2ML VIAL INH SCH ×2 (07:20→19:13)
[2018-07-11 08:02] LABS: Hematocrit (blood only) 31.8 % (42-52); Hemoglobin 10.6 g/dL (14.0-18.0); Mean Corpuscular Hgb Conc 33.3 g/dL (32-36); Mean Corpuscular Volume 92.4 fL (80-100); Mean Platelet Volume 10.1 fL (7.4-10.4); Platelet Count 196 K/uL (130-400); RDW Coefficient of Variation 14.3 % (11.5-14.5); RDW Standard Deviation 48.9 fL (36.4-46.3); Red Blood Count 3.44 M/uL (4.7-6.1); White Blood Count 8.29 K/uL (4.8-10.8)
[2018-07-11] MEDS: CYANOCOBALAMIN 500 MCG TABLET (VITAMIN B-12) PO SCH (08:18)
[2018-07-11] MEDS: ATORVASTATIN 40 MG TAB PO SCH (08:18)
[2018-07-11] MEDS: FENOFIBRATE NANOCRYSTALLIZED 145 MG TABLET PO SCH (08:18)
[2018-07-11] MEDS: ASPIRIN 81 MG ECTAB PO SCH (08:18)
[2018-07-11] MEDS: SERTRALINE HCL 50 MG TABLET PO SCH (08:18)
[2018-07-11 08:30] LABS: BUN Creatinine Ratio 17.4 (10-20); Calcium 9.4 mg/dl (8.5-10.1); Creatinine Clr Calc Pharmacy 36.6 ml/min; Est GFR (African American) 38.3
[2018-07-11 08:34] LABS: Albumin Globulin Ratio 1.1 (0.9-2); Bilirubin,Total 0.6 mg/dl (0.2-1); Globulin 2.7 gm/dl (2.5-4.0); Total Protein 5.7 gm/dl (6.4-8.2)
[2018-07-11] MEDS: INSULIN ASPART 100 UNITS/ML 3 ML PEN SC SCH ×4 (09:37→20:40)
--- NOTE | 2018-07-11 10:21 | Gastrointestinal Consultation ---
Date of Consultation July 11, 2018 Assessment & Plan (1) Weight loss: 78 year old male admitted w/ syncopal event, positive orthostatics - GI asked to evaluate for weight loss, elevated lipse. Unable to have contrasted abdominal imaging given creatinine. Does note about one week ago he had mild upper abdominal pain but no nausea, vomiting. Unenhanced CT and MR imaging w/ pancreatic head fullness and PD dilation but without visualization of discrete mass or lesion - LR 125 mL/hr - Clear liquids can advance to low fat as tolerated - Antiemetics PRN - Analgesia PRN - OP Colonoscopy - OP EGD/EUS in 3-4 weeks - GI to follow. Thank you for allowing us to participate in the care of this patient. Please call with any acute changes, questions or concerns. Please see addendum below with additional recommendation from my supervising physician. Present on Admission?: Yes (2) Elevated lipase: Present on Admission?: Yes Supervising Physician Co-Signing Physician Notes I have seen and examined the patient and discussed the management with SANKET Thompson. 78 yo male weight loss and lipase elevation. Now with respiratory issues. PE significant for him wearing oxygen to breath, CV- rrr no mrg, Pulm- supplemental o2 on, working to breath, abd soft nt nd +bs Labs sig for elevated lipase Agree with futher plan of care as per Mi's plan - outpatient colonoscopy followed by outpatient EUS pending improvement in respiratory status. Thank you for the consult. History of Present Illness Reason for Consultation: pancreatitis, weight loss Requesting Physician: Luis M Attending Physician: Esthela Asencio MD History of Present Illness 78 year old male with history of HTN, T2DM, dyslipidemia, JEANNETTE, COPD w/ chronic respiratory failure, AAA, recurrent syncopal events who presents to the ED from OP pulmonary appointment for evaluation of syncopal events - GI asked to evaluate given concern for pancreatitis and weight loss. Pt is seen and evaluated, chart reviewed. Feeling well. No abdominal pain. No nausea, vomiting. Notes about 7 days ago he did have upper abdominal pain. This was constant and mild. Burning and sharp. Was worse after PO. Not associated w/ nausea/vomiting. Has never had similar episode in past. Spontaneously resolved. No change in BM. No black/bloody stools. Notes 30 lb weight loss since prison. No fever, chills, CP, SOB. EGD: none Colonoscopy 2007: Diverticulosis colon. A 2 mm polyp at 25 cm proximal to the anus. Resected and retrieved MRCP 07/10/18: No cholelithiasis or choledocholithiasis.Trace fluid along the pancreatic tail characteristic of mild interstitial edematous pancreatitis. No acute peripancreatic fluid collection. Focal dilatation of the pancreatic duct at the level the pancreatic head. No pancreatic ductal calculi. This is nonspecific. Suspected solid 2.3 cm right renal mass. Renal neoplasm is not excluded. Dedicated imaging of the kidneys would be required to better characterize this lesion if clinically desired. CT 07/10/18: No acute process of the abdomen or pelvis.Unchanged 3.4 cm infrarenal abdominal aortic aneurysm.Unchanged/slightly increased in size of a 2.1 cm nodular density upper pole right kidney. This remains indeterminate CT 06/24/18: Cyst in the right kidney. Slight fullness and haziness associated with the pancreatic head, partially imaged. Allergies Allergy/AdvReac Type Severity Reaction Status Date / Time No Known Allergies Allergy Verified 07/10/18 14:06 Home Medications Home Medications Medication Instructions Recorded Confirmed Type albuterol sulfate [ProAir HFA] 2 puff INHALATION Q6H PRN 12/05/17 07/10/18 History aspirin [Aspirin Low Dose] 81 mg PO QAM 12/05/17 07/10/18 History atorvastatin 40 mg PO QAM 12/05/17 07/10/18 History fenofibrate nanocrystallized 145 mg PO QAM 12/05/17 07/10/18 History fluticasone propionate [Flonase 2 spray INTRANASAL DAILY 12/05/17 07/10/18 History Allergy Relief] ipratropium-albuterol 3 ml INHALATION QID PRN 12/05/17 07/10/18 History levothyroxine 100 mcg PO QAM 12/05/17 07/10/18 History tramadol 50 mg PO DAILY PRN 12/05/17 07/10/18 History arformoterol [Brovana] 15 mcg INHALATION Q12H 07/10/18 07/10/18 History atenolol-chlorthalidone 0.5 tab PO DAILY 07/10/18 07/10/18 History budesonide 0.5 mg INHALATION BID 07/10/18 07/10/18 History cyanocobalamin (vitamin B-12) 1,000 mcg PO QAM 07/10/18 07/10/18 History [Vitamin B-12] melatonin 5 mg PO HS PRN 07/10/18 07/10/18 History pioglitazone 15 mg PO DAILY 07/10/18 07/10/18 History ranitidine HCl 150 mg PO DAILY 07/10/18 07/10/18 History sertraline 50 mg PO QAM 07/10/18 07/10/18 History Patient History Medical History Pulmonary embolism (Resolved) 2016 - completed Coumadin therapry DVT (deep venous thrombosis) (Resolved) 2016 - completed Coumadin course GERD (gastroesophageal reflux disease) (Chronic) Oxygen dependent (Chronic) CKD (chronic kidney disease), stage IV (Chronic) HTN (hypertension) (Chronic) DM2 (diabetes mellitus, type 2) (Chronic) COPD (chronic obstructive pulmonary disease) (Chronic) JEANNETTE on CPAP (Chronic) HLD (hyperlipidemia) (Chronic) Hypothyroidism (Chronic) AAA (abdominal aortic aneurysm) (Chronic) "3.2cm, stable" Depression (Chronic) Surgical History History of bursectomy (Chronic) History of total right knee replacement (Chronic) H/O sinus surgery (Chronic) Family History Father Diabetes Mother Hypertension Brother Diabetes Social History Preferred Language: Georgian Communication Ability: Effective Gemologist Required: No Beliefs That Will Affect Care: Hinduism Hinduism Beliefs: Church marital status: Current Living Situation: Spouse Other Information That Helps Us Care for You: No Feels Safe at Home: Yes Safety Concerns: Feels Safe At This Time Smoking Status: Former smoker Do You Dip or Chew Tobacco: No Smoking End Date: at age 49 Second Hand Exposure: No Hx Alcohol Use: No (Former, >30 years) Hx Substance Use: No Review of Systems Constitutional: + weight loss; no fever, no body aches and no weakness Respiratory: + dyspnea (chronic and unchanged); no cough, no pain on inspiration and no wheezing Cardiovascular: no chest pain, no radiating jaw, neck or arm pain, no dyspnea on exertion and no palpitations Gastrointestinal: no abdominal pain, no belching, no bloating, no early s atiety, no heartburn, no nausea, no vomiting, no coffee ground emesis, no hemate mesis, no pain with swallowing, no dysphagia, no cramping, no excessive flatulence, no change in bowel habits, no change in stools, no constipation, no diarrhea/loose stools, no fecal incontinence, no constant urge to pass stools, no blood in stools, no melena and no problem reported Physical Exam Constitutional: well developed, well nourished and + ill appearing (chronic); no acute distress Respiratory: normal respiratory effort; no respiratory distress Auscultation: + diminished lung sounds; no crackles and no wheezes Cardiovascular: RRR, no murmur, no edema Gastrointestinal (Abdomen): normal bowel sounds, soft, nontender, no hepatosplenomegaly Skin: no rashes, warm and dry Results & Data Vital Signs (Past 12 Hours) Vital Signs Temp Pulse Pulse Resp BP BP Pulse Ox 07/11/18 07:45 36.8 C 67 18 157/75 H 96 07/11/18 07:20 70 16 98 07/11/18 03:00 36.5 C 66 20 164/76 H 99 07/10/18 23:00 36.9 C 71 20 162/77 H 98 Laboratory Results 07/11/18 07/11/18 07/11/18 Range/Units 07:47 07:34 07:34 WBC 8.29 (4.8-10.8) K/uL RBC 3.44 L (4.7-6.1) M/uL Hgb 10.6 L (14.0-18.0) g/dL Hct 31.8 L (42-52) % MCV 92.4 (80-100) fL MCH 30.8 (25-34) pg MCHC 33.3 (32-36) g/dL RDW Std Deviation 48.9 H (36.4-46.3) fL RDW Coeff of Luigi 14.3 (11.5-14.5) % Plt Count 196 (130-400) K/uL MPV 10.1 (7.4-10.4) fL Immature Gran % (Auto) % Neut % (Auto) % Lymph % (Auto) % [place] % (Auto) % Eos % (Auto) % Baso % (Auto) % Immature Gran # (Auto) (0.00-0.02) K/uL Neut # (Auto) (1.4-6.5) K/uL Lymph # (Auto) (1.2-3.4) K/uL [place] # (Auto) (0.11-0.59) K/uL Eos # (Auto) (0-0.5) K/uL Baso # (Auto) (0-0.2) K/uL PT (9.0-12.0) Seconds INR (0.9-1.1) APTT (21.0-31.0) Seconds PTT Ratio Sodium 138 (136-145) mmol/L Potassium 4.0 (3.5-5.1) mmol/L Chloride 105 (98-107) mmol/L Carbon Dioxide 28 (21-32) mmol/L Anion Gap 5.0 (3-11) BUN 33 H (7-18) mg/dl Creatinine 1.89 H D (0.6-1.4) mg/dl Est Cr Clr Drug Dosing 36.6 ml/min Est GFR ( Amer) 38.3 Est GFR (Non-Af Amer) 33.0 BUN/Creatinine Ratio 17.4 (10-20) Glucose 117 H (70-99) mg/dl POC Glucose 127 H (70-99) Calcium 9.4 (8.5-10.1) mg/dl Total Bilirubin 0.6 (0.2-1) mg/dl AST 23 (15-37) U/L ALT 18 (12-78) U/L Alkaline Phosphatase 39 L (45-117) U/L Troponin I (0-0.045) ng/ml Total Protein 5.7 L (6.4-8.2) gm/dl Albumin 3.0 L (3.4-5.0) gm/dl Globulin 2.7 (2.5-4.0) gm/dl Albumin/Globulin Ratio 1.1 (0.9-2) Triglycerides (0-150) mg/dl Cholesterol (0-200) mg/dl LDL Cholesterol, Calc mg/dl VLDL Cholesterol, Calc mg/dl HDL Cholesterol mg/dl Cholesterol/HDL Ratio Lipase 903 H (73-393) U/L TSH (0.300-4.500) uIu/ml 0407/10/18 07/10/18 Range/Units 00:19 19:25 14:37 WBC (4.8-10.8) K/uL RBC (4.7-6.1) M/uL Hgb (14.0-18.0) g/dL Hct (42-52) % MCV (80-100) fL MCH (25-34) pg MCHC (32-36) g/dL RDW Std Deviation (36.4-46.3) fL RDW Coeff of Luigi (11.5-14.5) % Plt Count (130-400) K/uL MPV (7.4-10.4) fL Immature Gran % (Auto) % Neut % (Auto) % Lymph % (Auto) % [place] % (Auto) % Eos % (Auto) % Baso % (Auto) % Immature Gran # (Auto) (0.00-0.02) K/uL Neut # (Auto) (1.4-6.5) K/uL Lymph # (Auto) (1.2-3.4) K/uL [place] # (Auto) (0.11-0.59) K/uL Eos # (Auto) (0-0.5) K/uL Baso # (Auto) (0-0.2) K/uL PT (9.0-12.0) Seconds INR (0.9-1.1) APTT (21.0-31.0) Seconds PTT Ratio Sodium (136-145) mmol/L Potassium (3.5-5.1) mmol/L Chloride (98-107) mmol/L Carbon Dioxide (21-32) mmol/L Anion Gap (3-11) BUN (7-18) mg/dl Creatinine (0.6-1.4) mg/dl Est Cr Clr Drug Dosing ml/min Est GFR ( Amer) Est GFR (Non-Af Amer) BUN/Creatinine Ratio (10-20) Glucose (70-99) mg/dl POC Glucose 127 H 138 H (70-99) Calcium (8.5-10.1) mg/dl Total Bilirubin (0.2-1) mg/dl AST (15-37) U/L ALT (12-78) U/L Alkaline Phosphatase (45-117) U/L Troponin I (0-0.045) ng/ml Total Protein (6.4-8.2) gm/dl Albumin (3.4-5.0) gm/dl Globulin (2.5-4.0) gm/dl Albumin/Globulin Ratio (0.9-2) Triglycerides 226 H (0-150) mg/dl Cholesterol 133 (0-200) mg/dl LDL Cholesterol, Calc 63 mg/dl VLDL Cholesterol, Calc 45 mg/dl HDL Cholesterol 25 mg/dl Cholesterol/HDL Ratio 5 Lipase (73-393) U/L TSH (0.300-4.500) uIu/ml 07/10/18 07/10/18 07/10/18 Range/Units 14:32 14:32 12:50 WBC (4.8-10.8) K/uL RBC (4.7-6.1) M/uL Hgb (14.0-18.0) g/dL Hct (42-52) % MCV (80-100) fL MCH (25-34) pg MCHC (32-36) g/dL RDW Std Deviation (36.4-46.3) fL RDW Coeff of Luigi (11.5-14.5) % Plt Count (130-400) K/uL MPV (7.4-10.4) fL Immature Gran % (Auto) % Neut % (Auto) % Lymph % (Auto) % [place] % (Auto) % Eos % (Auto) % Baso % (Auto) % Immature Gran # (Auto) (0.00-0.02) K/uL Neut # (Auto) (1.4-6.5) K/uL Lymph # (Auto) (1.2-3.4) K/uL [place] # (Auto) (0.11-0.59) K/uL Eos # (Auto) (0-0.5) K/uL Baso # (Auto) (0-0.2) K/uL PT 11.7 (9.0-12.0) Seconds INR 1.2 H (0.9-1.1) APTT 22.0 (21.0-31.0) Seconds PTT Ratio 0.8 Sodium 135 L (136-145) mmol/L Potassium 4.5 (3.5-5.1) mmol/L Chloride 101 (98-107) mmol/L Carbon Dioxide 28 (21-32) mmol/L Anion Gap 6.0 (3-11) BUN 36 H (7-18) mg/dl Creatinine 2.44 H (0.6-1.4) mg/dl Est Cr Clr Drug Dosing 28.8 ml/min Est GFR ( Amer) 28.1 Est GFR (Non-Af Amer) 24.2 BUN/Creatinine Ratio 14.9 (10-20) Glucose 226 H (70-99) mg/dl POC Glucose (70-99) Calcium 10.1 (8.5-10.1) mg/dl Total Bilirubin 0.5 (0.2-1) mg/dl AST 25 (15-37) U/L ALT 22 (12-78) U/L Alkaline Phosphatase 45 (45-117) U/L Troponin I < 0.015 < 0.015 (0-0.045) ng/ml Total Protein 6.9 (6.4-8.2) gm/dl Albumin 3.4 (3.4-5.0) gm/dl Globulin 3.5 (2.5-4.0) gm/dl Albumin/Globulin Ratio 1.0 (0.9-2) Triglycerides (0-150) mg/dl Cholesterol (0-200) mg/dl LDL Cholesterol, Calc mg/dl VLDL Cholesterol, Calc mg/dl HDL Cholesterol mg/dl Cholesterol/HDL Ratio Lipase 1267 H (73-393) U/L TSH 3.330 (0.300-4.500) uIu/ml 07/10/18 Range/Units 12:50 WBC 8.00 (4.8-10.8) K/uL RBC 4.11 L (4.7-6.1) M/uL Hgb 13.1 L (14.0-18.0) g/dL Hct 38.5 L (42-52) % MCV 93.7 (80-100) fL MCH 31.9 (25-34) pg MCHC 34.0 (32-36) g/dL RDW Std Deviation 48.9 H (36.4-46.3) fL RDW Coeff of Luigi 14.3 (11.5-14.5) % Plt Count 297 (130-400) K/uL MPV 11.1 H (7.4-10.4) fL Immature Gran % (Auto) 0.3 % Neut % (Auto) 70.4 % Lymph % (Auto) 19.6 % [place] % (Auto) 7.1 % Eos % (Auto) 2.1 % Baso % (Auto) 0.5 % Immature Gran # (Auto) 0.02 (0.00-0.02) K/uL Neut # (Auto) 5.63 (1.4-6.5) K/uL Lymph # (Auto) 1.57 (1.2-3.4) K/uL [place] # (Auto) 0.57 (0.11-0.59) K/uL Eos # (Auto) 0.17 (0-0.5) K/uL Baso # (Auto) 0.04 (0-0.2) K/uL PT (9.0-12.0) Seconds INR (0.9-1.1) APTT (21.0-31.0) Seconds PTT Ratio Sodium (136-145) mmol/L Potassium (3.5-5.1) mmol/L Chloride (98-107) mmol/L Carbon Dioxide (21-32) mmol/L Anion Gap (3-11) BUN (7-18) mg/dl Creatinine (0.6-1.4) mg/dl Est Cr Clr Drug Dosing ml/min Est GFR ( Amer) Est GFR (Non-Af Amer) BUN/Creatinine Ratio (10-20) Glucose (70-99) mg/dl POC Glucose (70-99) Calcium (8.5-10.1) mg/dl Total Bilirubin (0.2-1) mg/dl AST (15-37) U/L ALT (12-78) U/L Alkaline Phosphatase (45-117) U/L Troponin I (0-0.045) ng/ml Total Protein (6.4-8.2) gm/dl Albumin (3.4-5.0) gm/dl Globulin (2.5-4.0) gm/dl Albumin/Globulin Ratio (0.9-2) Triglycerides (0-150) mg/dl Cholesterol (0-200) mg/dl LDL Cholesterol, Calc mg/dl VLDL Cholesterol, Calc mg/dl HDL Cholesterol mg/dl Cholesterol/HDL Ratio Lipase (73-393) U/L TSH (0.300-4.500) uIu/ml
--- NOTE | 2018-07-11 15:52 | Hospitalist Progress Note ---
Date of Service July 11, 2018 Assessment & Plan (1) Syncope: (2) Orthostatic hypotension: Present to the ER after he experienced 2 syncopal events Positive orthostatic blood pressures noted on admission CT head showed no acute intracranial abnormality. Received IVF Atenolol and chlorthalidone on hold BP elevated Tele monitor showed no arrhythmia Will resume Atenolol for now Continue monitor PT/OT (3) Elevated lipase: Possible related to chronic pancreatitis Lipase 1267 on admission, dropped to 903 Denies any abdominal pain CT abd/pelvis showed no acute process of the abdomen or pelvis. MRCP done today showed no cholelithiasis or choledocholithiasis. Focal dilatation of the pancreatic duct at the level the pancreatic head. Trace fluid along the pancreatic tail characteristic of mild interstitial edematous pancreatitis. No acute peripancreatic fluid collection. Gastro on board recommended outpatient colonoscopy followed by outpatient EUS once improvement in his respiratory status. Diet advanced as tolerated to low fat Will decrease IVF Repeat Lipase in am (4) Weight loss: Need to r/o underlying malignancy Patient has had unintentional weight loss of 30 pounds over the past 6 months Was scheduled for outpatient colonoscopy however patient cancelled Will need outpatient colonoscopy (5) CKD (chronic kidney disease), stage IV: Creatinine on admission 2.4 Baseline creat runs in the low 2's Received IVF creatinine today 1.8 Avoid nephrotoxic agents (6) DM2 (diabetes mellitus, type 2): HgbA1c 6.1 05/2018 Hold oral agents On NovoLog protocol while hospitalized Monitor BS (7) COPD (chronic obstructive pulmonary disease): (8) Oxygen dependent: Continue chronic 3 L of oxygen supplement Continue home inhalers (9) JEANNETTE on CPAP: CPAP at bedtime as per home settings (10) HLD (hyperlipidemia): Continue statin and fenofibrate (11) Hypothyroidism: Continue levothyroxine (12) Depression: Continue sertraline (13) AAA (abdominal aortic aneurysm): Stable (14) GERD (gastroesophageal reflux disease): Continue H2 lottie Renal Mass CT abd/pelvis showed unchanged/slightly increased in size of a 2.1 cm nodular density upper pole right kidney. Stable (15) DVT prophylaxis: SQ heparin CODE STATUS Conditional code Disposition Possible discharge tomorrow Subjective Pt was seen and examined Lying in bed with no distress Pt said that he feels fine He said that he did not have any dizziness during orthostatic vital today He said that he tolerated clear liquid diet He said that he does not have any nausea, vomiting and diarrhea Physical Exam Physical Exam: General- No acute distress Head- atraumatic Eyes- PERRL, EOMI, ENT- oropharynx clear Neck- supple, no JVD Lungs- clear to auscultation Heart- regular rhythm; no murmur Abdomen- normal bowel sounds, soft, nontender Extremities- no calf tenderness Neuro- alert, oriented x 3; PERRL, EOMI; no facial palsy; no dysarthria Skin- warm & dry Results & Data Vital Signs (Past 12 Hours) Vital Signs Temp Pulse Pulse Pulse Resp BP BP 07/11/18 15:45 36.7 C 59 L 20 170/69 H 07/11/18 15:06 66 07/11/18 12:52 81 175/82 H 07/11/18 11:52 36.7 C 73 18 192/68 H 07/11/18 08:00 66 07/11/18 07:45 36.8 C 67 18 157/75 H 07/11/18 07:20 70 16 Pulse Ox 07/11/18 15:45 95 07/11/18 15:06 07/11/18 12:52 07/11/18 11:52 94 07/11/18 08:00 07/11/18 07:45 96 07/11/18 07:20 98
[2018-07-11] MEDS: ATENOLOL 25 MG TABLET PO SCH (18:08)
[2018-07-12] MEDS: LEVOTHYROXINE SODIUM 100 MCG TABLET PO SCH (05:54)
[2018-07-12] MEDS: HEPARIN SOD 5,000 UNIT/0.5 ML VIAL SQ SCH ×2 (05:54→13:50)
[2018-07-12 07:00] LABS: Hematocrit (blood only) 30.7 % (42-52); Hemoglobin 10.4 g/dL (14.0-18.0); Mean Corpuscular Hgb Conc 33.9 g/dL (32-36); Mean Corpuscular Volume 90.8 fL (80-100); Mean Platelet Volume 10.3 fL (7.4-10.4); Platelet Count 187 K/uL (130-400); RDW Coefficient of Variation 13.9 % (11.5-14.5); RDW Standard Deviation 46.4 fL (36.4-46.3); Red Blood Count 3.38 M/uL (4.7-6.1); White Blood Count 5.28 K/uL (4.8-10.8)
[2018-07-12] MEDS: BUDESONIDE 0.5 MG/2 ML VIAL (PULMICORT) INH SCH (07:41)
[2018-07-12] MEDS: ARFORMOTEROL TART 15MCG/2ML VIAL INH SCH (07:41)
[2018-07-12] MEDS: FENOFIBRATE NANOCRYSTALLIZED 145 MG TABLET PO SCH (07:59)
[2018-07-12] MEDS: ATENOLOL 25 MG TABLET PO SCH (07:59)
[2018-07-12] MEDS: ASPIRIN 81 MG ECTAB PO SCH (07:59)
[2018-07-12] MEDS: CYANOCOBALAMIN 500 MCG TABLET (VITAMIN B-12) PO SCH (07:59)
[2018-07-12] MEDS: ATORVASTATIN 40 MG TAB PO SCH (07:59)
[2018-07-12] MEDS: SERTRALINE HCL 50 MG TABLET PO SCH (07:59)
[2018-07-12] MEDS: INSULIN ASPART 100 UNITS/ML 3 ML PEN SC SCH ×2 (08:02→12:27)
[2018-07-12] MEDS ORDERED: CHLORTHALIDONE 25 MG TAB PO SCH (13:00)
--- NOTE | 2018-07-12 14:31 | Hospitalist Progress Note ---
Date of Service July 12, 2018 Assessment & Plan (1) Syncope: (2) Orthostatic hypotension: Present to the ER after he experienced 2 syncopal events Positive orthostatic blood pressures noted on admission CT head showed no acute intracranial abnormality. D/C IVF Atenolol and chlorthalidone resumed today BP elevated Tele monitor showed no arrhythmia Continue monitor Will be evaluate by physical therapy Improves (3) Elevated lipase: Possible related to chronic pancreatitis Lipase 1267 on admission, dropped to 903 Denies any abdominal pain CT abd/pelvis showed no acute process of the abdomen or pelvis. MRCP done today showed no cholelithiasis or choledocholithiasis. Focal dilatation of the pancreatic duct at the level the pancreatic head. Trace fluid along the pancreatic tail characteristic of mild interstitial edematous pancreatitis. No acute peripancreatic fluid collection. Gastro on board recommended outpatient colonoscopy followed by outpatient EUS once improvement in his respiratory status. Tolerated low fat diet Discontinued IVF Lipase decreased to 495 today (4) Weight loss: Need to r/o underlying malignancy Patient has had unintentional weight loss of 30 pounds over the past 6 months Was scheduled for outpatient colonoscopy however patient cancelled Will need outpatient colonoscopy (5) CKD (chronic kidney disease), stage IV: Creatinine on admission 2.4 Baseline creat runs in the low 2's Received IVF creatinine stable at 1.8 Avoid nephrotoxic agents (6) DM2 (diabetes mellitus, type 2): HgbA1c 6.1 05/2018 Hold oral agents On NovoLog protocol while hospitalized Monitor BS (7) COPD (chronic obstructive pulmonary disease): (8) Oxygen dependent: Continue chronic 3 L of oxygen supplement Continue home inhalers (9) JEANNETTE on CPAP: CPAP at bedtime as per home settings (10) HLD (hyperlipidemia): Continue statin and fenofibrate (11) Hypothyroidism: Continue levothyroxine (12) Depression: Continue sertraline (13) AAA (abdominal aortic aneurysm): Stable (14) GERD (gastroesophageal reflux disease): Continue H2 lottie Renal Mass CT abd/pelvis showed unchanged/slightly increased in size of a 2.1 cm nodular density upper pole right kidney. Stable (15) DVT prophylaxis: SQ heparin CODE STATUS Conditional code Disposition Possible discharge home today if safe from PT standpoint Subjective Pt was seen and examined Sitting in chair with no distress Pt said that he feels much better He said that he walked to the bathroom with no dizziness Denies any chest pain, palpitation, dizziness and SOB Physical Exam Physical Exam: General- No acute distress Head- atraumatic Eyes- PERRL, EOMI, ENT- oropharynx clear Neck- supple, no JVD Lungs- Diminished BS Heart- regular rhythm; no murmur Abdomen- normal bowel sounds, soft, nontender Extremities- no calf tenderness Neuro- alert, oriented x 3; PERRL, EOMI; no facial palsy; no dysarthria Skin- warm & dry Results & Data Vital Signs (Past 12 Hours) Vital Signs Temp Pulse Resp BP Pulse Ox 07/12/18 11:46 36.4 C L 64 20 164/71 H 95 07/12/18 07:55 75 07/12/18 07:41 59 L 18 98 07/12/18 07:12 36.8 C 97 07/12/18 03:56 36.9 C 80 18 168/79 H 94
[2018-07-12] MEDS ORDERED: MICONAZOLE NITRATE POWDER 43 GM EXT PRN (17:00)
[2018-07-12] MEDS ORDERED: MICONAZOLE NITRATE POWDER 43 GM EXT STA (17:42)
--- OUTSIDE RECORDS SUMMARY | 2018-07-15 20:32 | External Medical Summary | Continuity of Care Document ---
:1940 Author Name Danilo Flores, Provider Address Unavailable Unavailable , Care Team Providers Name Role Phone Unavailable Unavailable Unavailable LIGIA SKINNER Unavailable Unavailable Problems Abnormal CT scan, lung (793.19) (R91.8) COPD (chronic obstructive pulmonary disease) (496) (J44.9) Hypoxemia (799.02) (R09.02) Acute DVT (deep venous thrombosis) (453.40) (I82.409) AAA (abdominal aortic aneurysm) (441.4) (I71.4) Hypertriglyceridemia (272.1) (E78.1) HTN (hypertension) (401.9) (I10) CKD (chronic kidney disease), stage 4 (severe) (585.4) (N18. 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 Refills: 0 ALPRAZolam 1 MG Oral Tablet; TAKE 1 TABLET AT BEDTIME NEE DED. , M.D. Refills: 0 amLODIPine Besylate 5 MG Oral Tablet; TAKE 1 TABLET DAILY. , M.D. Refills: 0 Aspirin 325 MG Oral Tablet; TAKE 1 TABLET DAILY. , M.D. Refills: 0 Atenolol-Chlorthalidone 100-25 MG Oral Tablet; take 1/2 tabl et daily , M.D. Refills: 0 Atorvastatin Calcium 40 MG Oral Tablet; TAKE 1 TABLET DAILY. , M.D. Refills: 0 Fenofibrate 145 MG Oral Tablet; TAKE 1 TABLET DAILY. , M.D. Refills: 0 Fluticasone Propionate 50 MCG/ACT Nasal Suspension; USE 2 SPRAYS IN EACH NOSTRIL ONCE DAILY , M.D. Refills: 0 Glimepiride 2 MG Oral Tablet; TAKE 1 TABLET DAILY DIRECTE D. , M.D. Quantity: 90 Refills: 3 Ipratropium-Albuterol 0.5-2.5 (3) MG/3ML Inhalation Solution; USE 1 VIAL IN NEBULIZER 4 TIMES DAILY , M.D. Quantity: 360 Refills: 5 Levothyroxine Sodium 100 MCG Oral Tablet; TAKE 1 TABLET JORGITO Y. M.DAhmet Quantity: 30 Refills: 5 Mirtazapine 15 MG Oral Tablet; TAKE 1 TABLET AT BEDTIME. , M .D. Refills: 0 PARoxetine HCl - 40 MG Oral Tablet; TAKE 1 TABLET DAILY. , M .D. Refills: 0 Pioglitazone HCl - 30 MG Oral Tablet; TAKE 1 TABLET ONCE KHADIJAH LY. M.D. Refills: 0 Saline Nasal [place] SOLN; USE DIRECTED. , M.D. Refills: 0 traMADol HCl - 50 MG Oral Tablet; TAKE 1 TABLET EVERY 6 HOURS NEEDED FOR PAIN. , M.D. Refills: 0 Incruse Ellipta 62.5 MCG/INH Inhalation Aerosol Powder Breath Activated; INHALE 1 PUFF DAILY. , M.D. Refills: 0 Procedures History of Elbow Surgery Status: Complet ed History of Knee Surgery Status: Complete d History of Sinus Surgery Status: Complet ed Immunizations Immunizations not documented Family History Unknown Family Member Family history of diabetes mellitus (V18.0) Status: Active Comments: Family History (Z83.3) Family history of hypertension (V17.49) Status: Active Comments: Family History (Z82.49) Social History - Smoking Status Former smoker Plan of Treatment Planned Observations Planned Goals not documented Results No Known Results Results not documented
--- NOTE | 2018-07-19 09:59 | Discharge Summary ---
Date of Service July 12, 2018 Admission HPI Per Admitting Provider 78-year-old male who presents to the ED for evaluation of syncopal event. 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 Patient reports that over the past couple of months he has been having episodes of lightheadedness and dizziness with standing. Over the past 1 week, he has had a few syncopal episodes at home. 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 He was sent to the ER for further evaluation. Patient denies associated chest pain. He has chronic exertional shortness of breath which is unchanged from baseline. He does note a significant weight loss over the past several months, believes about 50 pounds in the past 6 months. This is been unintentional. Patient was scheduled for colonoscopy however reports he canceled it. Patient reports some epigastric abdominal pain which she describes as " hunger pain". Reports it resolves after he gets something to eat and denies any postprandial abdominal pain. He denies nausea, vomiting, diarrhea. No fevers chills. He denies any urinary symptoms. Of note, patient had an outpatient chest CT on 06/24/2018 that incidentally noted mild pancreatic head fullness. In the ED, patient was found to have positive orthostatic blood pressures. Per review of outpatient records, it seems as though patient has been having presyncopal symptoms over the past few months and subsequently amlodipine was discontinued and atenolol/chlorthalidone was decreased. Patient was given IVF. Lipase is 1267, other labs unremarkable. CT ABD/pelvis without contrast is negative for acute findings. Admission Exam Per Admitting Provider Constitutional: WD/WN, vitals as above Eyes: PERRL, conjunctivae normal, anicteric sclerae ENMT: external ear and nose normal, oropharynx normal Respiratory: normal respiratory effort; no respiratory distress Auscultation: + diminished lung sounds Cardiovascular: Rate/Rhythm: regular rate and regular rhythm Vessels: normal peripheral pulses Extremities: no edema Gastrointestinal Inspection/Auscultation: normal bowel sounds; abdomen not distended Percussion/Palpation: + abdomen tender (Mild, epigastric) and abdomen soft; no hepatosplenomegaly Musculoskeletal: no cyanosis or clubbing, extremities motor strength 5/5 Skin: no rashes, warm and dry Neurologic: PERRL, EOMI, accommodation nl, no face palsy, no dysarthria Psychiatric: A+Ox3, euthymic affect Principal Diagnosis Syncope: Orthostatic hypotension Discharge Exam General- No acute distress Head- atraumatic Eyes- PERRL, EOMI, ENT- oropharynx clear Neck- supple, no JVD Lungs- Diminished BS Heart- regular rhythm; no murmur Abdomen- normal bowel sounds, soft, nontender Extremities- no calf tenderness Neuro- alert, oriented x 3; PERRL, EOMI; no facial palsy; no dysarthria Skin- warm & dry Discharge Data Allergies Allergy/AdvReac Type Severity Reaction Status Date / Time No Known Allergies Allergy Verified 07/10/18 14:06 Consultations 07/10/18 15:58 ED Decision to Admit Stat 07/10/18 18:40 Consult Gastroenterology Routine Ordered Studies 07/10/18 13:58 CT abd pelvis wo con Stat 07/10/18 20:56 CT head/brain wo con Routine 07/11/18 01:14 MR MRCP Routine XR chest 1V portable HISTORY: 78 years-old Male syncope acute syncope COMPARISON: Chest radiograph 12/05/2017 TECHNIQUE: Portable AP view of the chest FINDINGS: Cardiomediastinal and hilar silhouettes are within normal limits. There is no pneumothorax, pleural effusion, focal airspace consolidation or overt pulmonary edema. Unchanged moderate hemidiaphragmatic elevation. Degenerative changes of the shoulders and spine. IMPRESSION: No acute process. The above report was generated using voice recognition software. It may contain grammatical, syntax or spelling errors. Electronically signed by: Robert Cedillo M.D. 07/10/2018 2:27 PM Dictated: 07/10/18 1427 Transcribed: 07/10/[address] abd pelvis wo con CT DOSE: 660.33 mGy.cm HISTORY: Pain. Nausea. sent by PCP TECHNIQUE: Multiaxial CT images of the abdomen and pelvis were performed without contrast. A dose lowering technique was utilized adhering to the principles of ALARA. COMPARISON STUDY: 06/29/2017 FINDINGS: Lung bases are clear. Liver spleen and pancreas are grossly unremarkable. Normal adrenal glands. Cortical scarring of the kidneys bilaterally. 2.1 cm nodular density upper pole right kidney. This is minimally increased in prominence from the prior study and remains indeterminate. Bowel pattern overall is nonobstructive. Normal appendix. Bladder is midline. No free fluid within the pelvic cul-de-sac. IMPRESSION: 1. No acute process of the abdomen or pelvis. 2. Unchanged 3.4 cm infrarenal abdominal aortic aneurysm. 3. Unchanged/slightly increased in size of a 2.1 cm nodular density upper pole right kidney. This remains indeterminate The above report was generated using voice recognition software. It may contain grammatical, syntax or spelling errors. Electronically signed by: Manoj Hayes M.D. 07/10/2018 2:25 PM Dictated: 07/10/181418 Transcribed: 07/10/181418 HEAD CT NONCONTRAST CT DOSE: 614.27 mGy.cm HISTORY: syncope TECHNIQUE: Multiaxial CT images of the head were performed without the use of intravenous contrast. Automated exposure control was utilized for this study. A dose lowering technique was utilized adhering to the principles of ALARA. Comparison: Head CT 11/22/2017. Findings: The paranasal sinuses and mastoid air cells are clear. The calvarium and skull base are intact. There is no mass, hematoma, midline shift, acute infarct. White matter hypodensity is nonspecific but suggestive of microvascular ischemic change. The ventricles and sulci demonstrate mild age-related involut ional changes. Impression: No significant change compared to the prior study. No acute intracranial abnormality. Electronically signed by: Marko France M.D. 07/10/2018 9:30 PM Dictated: 07/10/182123 Transcribed: 07/10/182123 MR MRCP CLINICAL HISTORY: 78 years-old Male presenting with elevated lipase. TECHNIQUE: Multisequence, multiplanar MR imaging of the abdomen was performed without the use of intravenous contrast. Dedicated MRCP protocol was utilized. 3-D volumetric and/or maximum intensity projection (MIP) images were subsequently reconstructed for review. IV contrast: None. COMPARISON: CT from 07/10/2018 . FINDINGS: Localizer images: Unremarkable. Lung bases: Lung base clear. Normal heart size. No pericardial or pleural effusion. Liver: Normal morphology. Biliary: Conventional intrahepatic biliary bifurcation. No intrahepatic or extrahepatic biliary ductal dilatation. No evidence of common duct calculi. Normal gallbladder. Pancreas: Trace fluid noted along the dorsal aspect of the pancreatic tail. Mild atrophy of the pancreatic parenchyma. No fluid collection within the parenchyma or peripancreatic regions. Dilatation of the main pancreatic duct at the level of the pancreatic head with the remainder of the pancreatic duct is normal in caliber. No evidence of pancreatic ductal calculi. Spleen: Normal noncontrast appearance. Adrenal glands: Normal noncontrast appearance. Kidneys and ureters: 2.3 cm heterogeneously T2 hyperintense lesion arising from the interpolar region of the right kidney. The appearance suggests a solid lesion rather than cystic. Overall bilateral renal atrophy. No hydronephrosis. Bowel: Normal noncontrast appearance. No bowel obstruction. Peritoneal cavity: No free fluid intraperitoneal fluid. Trace retroperitoneal fluid along the greater detail. Lymph nodes: No gross lymphadenopathy allowing for noncontrast technique. Vasculature: Normal noncontrast appearance. Abdominal wall: Normal. Musculoskeletal: Degenerative changes of the spine. IMPRESSION: 1. No cholelithiasis or choledocholithiasis. 2. Trace fluid along the pancreatic tail characteristic of mild interstitial edematous pancreatitis. No acute peripancreatic fluid collection. 3. Focal dilatation of the pancreatic duct at the level the pancreatic head. No pancreatic ductal calculi. This is nonspecific. 4. Suspected solid 2.3 cm right renal mass. Renal neoplasm is not excluded. Dedicated imaging of the kidneys would be required to better characterize this lesion if clinically desired. Electronically signed by: Humberto Piña M.D. 07/11/2018 7:16 AM Dictated: 07/11/1839 Transcribed: 07/11/18 0639 Hospital Course (1) Syncope: (2) Orthostatic hypotension: Present to the ER after he experienced 2 syncopal events Positive orthostatic blood pressures noted on admission CT head showed no acute intracranial abnormality. D/C IVF Atenolol and chlorthalidone resumed today BP elevated Tele monitor showed no arrhythmia Continue monitor Will be evaluate by physical therapy Improves (3) Elevated lipase: Possible related to chronic pancreatitis Lipase 1267 on admission, dropped to 903 Denies any abdominal pain CT abd/pelvis showed no acute process of the abdomen or pelvis. MRCP done today showed no cholelithiasis or choledocholithiasis. Focal dilatation of the pancreatic duct at the level the pancreatic head. Trace fluid along the pancreatic tail characteristic of mild interstitial edematous pancreatitis. No acute peripancreatic fluid collection. Gastro on board recommended outpatient colonoscopy followed by outpatient EUS once improvement in his respiratory status. Tolerated low fat diet Discontinued IVF Lipase decreased to 495 today (4) Weight loss: Need to r/o underlying malignancy Patient has had unintentional weight loss of 30 pounds over the past 6 months Was scheduled for outpatient colonoscopy however patient cancelled Will need outpatient colonoscopy (5) CKD (chronic kidney disease), stage IV: Creatinine on admission 2.4 Baseline creat runs in the low 2's Received IVF creatinine stable at 1.8 Avoid nephrotoxic agents (6) DM2 (diabetes mellitus, type 2): HgbA1c 6.1 05/2018 Hold oral agents On NovoLog protocol while hospitalized Monitor BS (7) COPD (chronic obstructive pulmonary disease): (8) Oxygen dependent: Continue chronic 3 L of oxygen supplement Continue home inhalers (9) JEANNETTE on CPAP: CPAP at bedtime as per home settings (10) HLD (hyperlipidemia): Continue statin and fenofibrate (11) Hypothyroidism: Continue levothyroxine (12) Depression: Continue sertraline (13) AAA (abdominal aortic aneurysm): Stable (14) GERD (gastroesophageal reflux disease): Continue H2 lottie Renal Mass CT abd/pelvis showed unchanged/slightly increased in size of a 2.1 cm nodular density upper pole right kidney. Stable (15) DVT prophylaxis: SQ heparin CODE STATUS Conditional code Disposition Possible discharge home today if safe from PT standpoint Total Time Total Time Spent Total Time Spent (In Minutes): 35 minutes Total Time Includes: Examination of the Patient, Discharge Planning, Medication Reconciliation, Communication With Other Providers and Other Discharge Plan Discharge Items Patient Disposition: Home - Self-Care Reason For Visit: ORTHOSTATIC Discharge Diagnosis: Syncope: Orthostatic hypotension: Discharge Goals: Decrease discomfort, Improve disease control and Increase independence Activity: Resume your previous activity Activity Comment: as tolerated Non-emergency contact: Primary Care Provider Call non-emergency contact if: you have any medication questions Follow-up/Referrals: Jayla Yu MD [Primary Care Provider] - Diet: Low Fat Addtl Provider Instructions: Follow up with your primary care provider Dr. Carbajal (Dr. Yu's Colleague) on 07/18 @ 1:45 PM Follow up with Gastroenterology Fall precaution Prescriptions: Continued cyanocobalamin (vitamin B-12) [Vitamin B-12] 1,000 mcg Tablet 1,000 mcg PO QAM RF: 0 budesonide 0.5 mg/2 mL Suspension For Nebulization 0.5 mg INHALATION BID RF: 0 sertraline 50 mg Tablet 50 mg PO QAM RF: 0 melatonin 5 mg Tablet 5 mg PO HS PRN (Reason: Sleep) RF: 0 pioglitazone 15 mg tablet 15 mg PO DAILY RF: 0 atenolol-chlorthalidone 50-25 mg tablet 0.5 tab PO DAILY RF: 0 ranitidine HCl 150 mg Tablet 150 mg PO DAILY RF: 0 Brovana 15 mcg/2 mL Solution For Nebulization 15 mcg INHALATION Q12H RF: 0 atorvastatin 40 mg tablet 40 mg PO QAM RF: 0 ipratropium-albuterol 0.5 mg-3 mg(2.5 mg base)/3 mL Solution For Nebulization 3 ml INHALATION QID PRN (Reason: Shortness Of Breath) RF: 0 aspirin [Aspirin Low Dose] 81 mg Tablet,Delayed Release (Dr/Ec) 81 mg PO QAM RF: 0 tramadol 50 mg tablet 50 mg PO DAILY PRN (Reason: Pain) RF: 0 levothyroxine 100 mcg tablet 100 mcg PO QAM RF: 0 albuterol sulfate [ProAir HFA] 90 mcg/actuation Hfa Aerosol Inhaler 2 puff INHALATION Q6H PRN (Reason: Shortness Of Breath Or Wheezing) RF: 0 fluticasone propionate [Flonase Allergy Relief] 50 mcg/actuation Spra y,Suspension 2 spray INTRANASAL DAILY RF: 0 fenofibrate nanocrystallized 145 mg tablet 145 mg PO QAM RF: 0 Stand-Alone Forms: [facility] Discharge Orders: Discharge Order (Routine); Ordered 07/12/18 Ordered By: Esthela Asencio Admission Data Admit Date/Time: 07/10/18 16:44 Attending Provider: Esthela Asencio Admit Provider: Belia Perez Primary Care Provider: Jayla Yu Other Providers: Modesta Koehler Service: Telemetry Medical Other Interventions: Discharge Summary Assessment (RN) Last Done: 07/12/18 16:42 DC Date/Time DO NOT enter until pt leaves facility: 07/12/18 17:57
== END 2018-07-12 17:57 | disposition home or self-care (01) | DRG 439 ==
LOC: ED 12:42 → 2W 16:44

== ENCOUNTER 2021-02-13 02:35 | Observation (INO) ==
[2021-02-13] MEDS: SODIUM CHLORIDE 0.9% 1000ML 1,000 ML IV SCH ×4 (03:13→15:30)
[2021-02-13 03:22] LABS: Basophils # (auto) 0.02 K/uL (0-0.2); Basophils % (auto) 0.3 %; Eosinophils # (auto) 0.14 K/uL (0-0.5); Eosinophils % (auto) 1.8 %; Hematocrit (blood only) 42.7 % (42-52); Hemoglobin 13.6 g/dL (14.0-18.0); Immature Granulocytes # (auto) 0.02 K/uL (0.00-0.02); Immature Granulocytes % (auto) 0.3 %; Lymphocytes # (auto) 0.94 K/uL (1.2-3.4); Mean Corpuscular Hemoglobin 31.1 pg (25-34); Mean Corpuscular Hgb Conc 31.9 g/dL (32-36); Mean Corpuscular Volume 97.7 fL (80-100); Mean Platelet Volume 11.2 fL (7.4-10.4); Monocytes # (auto) 0.58 K/uL (0.11-0.59); Monocytes % (auto) 7.4 %; Neutrophils # (auto) 6.11 K/uL (1.4-6.5); Neutrophils % (auto) 78.2 %; Platelet Count 213 K/uL (130-400); RDW Coefficient of Variation 16.6 % (11.5-14.5); RDW Standard Deviation 59.4 fL (36.4-46.3); Red Blood Count 4.37 M/uL (4.7-6.1); White Blood Count 7.81 K/uL (4.8-10.8)
[2021-02-13 03:49] LABS: Alanine Aminotransferase 67 U/L (12-78); Albumin Level 2.4 gm/dl (3.4-5.0); Aspartate Aminotransferase 179 U/L (15-37); BUN Creatinine Ratio 14.5 (10-20); Blood Urea Nitrogen 28 mg/dl (7-18); Calcium 9.6 mg/dl (8.5-10.1); Carbon Dioxide 30 mmol/L (21-32); Chloride 104 mmol/L (98-107); Creatinine Clr Calc Pharmacy 36.4 ml/min; Est GFR (African American) 36.1 ml/min; Est GFR (Non-African American) 31.2 ml/min; Glucose 171 mg/dl (70-99); Lipase 537 U/L (73-393); Magnesium 1.6 mg/dl (1.8-2.4); Potassium 4.1 mmol/L (3.5-5.1); Sodium 137 mmol/L (136-145)
[2021-02-13 03:59] LABS: Albumin Globulin Ratio 0.5 (0.9-2); Alkaline Phosphatase 138 U/L (45-117); Bilirubin,Total 2.5 mg/dl (0.2-1); Globulin 4.6 gm/dl (2.5-4.0); Troponin I < 0.015 ng/ml (0-0.045)
[2021-02-13 04:14] LABS: T4 Free Thyroxine 1.62 ng/dl (0.8-1.6)
[2021-02-13] MEDS ORDERED: MAGNESIUM SULFATE / D5W 1 GM/100 ML BAG IV STA (05:15)
--- NOTE | 2021-02-13 05:55 | Emergency Department Note ---
History of Present Illness General Chief complaint: Fall Stated complaint: FALL/RT. KNEE PAIN;BILAT LEG PAIN Time Seen by Provider: 02/13/21 02:37 Source: patient Mode of arrival: EMS Limitations: no limitations History of Present Illness Provider complaint: fall from standing, weakness Maximum Pain Intensity: 10 This is an 80-year-old male brought in by EMS due to ground-level fall and con cern for weakness. Patient states he does normally walk with a walker and this evening he felt his legs were weak and he slowly "crumpled to the floor". Patient denies any concern for trauma or injury, denies hitting his head or losing consciousness. Patient states he does have chronic pain in the right leg due to prior knee replacement. He states he did receive his Covid vaccine 3 weeks ago and approximately a week after that started noting increased weakness, cough, nausea vomiting, and diarrhea. Patient denies any other change in medication. Denies any prior adverse reaction to the vaccine. He denies chest pain, shortness of breath, abdominal pain. Pt seen during a time of high acuity and national emergency pandemic while wearing PPE. Home Medications Medication Instructions Recorded Confirmed Type aspirin 81 mg tablet,delayed 81 mg PO QAM 12/05/17 02/13/21 History release (Aspirin Low Dose) atorvastatin 40 mg tablet 40 mg PO QAM 12/05/17 02/13/21 History fenofibrate nanocrystallized 145 145 mg PO QAM 12/05/17 02/13/21 History mg tablet fluticasone propionate 50 2 spray INTRANASAL DAILY 12/05/17 02/13/21 History mcg/actuation nasal spray,suspension (Flonase Allergy Relief) levothyroxine 100 mcg tablet 100 mcg PO QAM 12/05/17 02/13/21 History tramadol 50 mg tablet 50 mg PO DAILY PRN 12/05/17 02/13/21 History cyanocobalamin (vitamin B-12) 1,000 mcg PO QAM 07/10/18 02/13/21 History 1,000 mcg tablet (Vitamin B-12) melatonin 5 mg tablet 5 mg PO HS PRN 07/10/18 02/13/21 History amlodipine 5 mg tablet 5 mg PO DAILY 02/13/21 02/13/21 History cholecalciferol (vitamin D3) 25 25 mcg PO DAILY 02/13/21 02/13/21 History mcg (1,000 unit) capsule (Vitamin D3) famotidine 20 mg tablet (Pepcid) 20 mg PO DAILY 02/13/21 02/13/21 History furosemide 20 mg tablet (Lasix) 20 mg PO DAILY 02/13/21 02/13/21 History lamotrigine 25 mg tablet (Lamictal) 25 mg PO DAILY 02/13/21 02/13/21 History omeprazole 20 mg capsule,delayed 20 mg PO DAILY 02/13/21 02/13/21 History release sertraline 100 mg tablet (Zoloft) 100 mg PO DAILY 02/13/21 02/13/21 History tamsulosin 0.4 mg capsule 0.4 mg PO DAILY 02/13/21 02/13/21 History Allergies Allergy/AdvReac Type Severity Reaction Status Date / Time No Known Allergies Allergy Verified 02/13/21 02:57 Past Med/Surg History Medical History (Updated 02/13/21 @ 08:35 by Sejal Silver DO) AAA (abdominal aortic aneurysm) "3.2cm, stable" CKD (chronic kidney disease), stage IV Avg creatinine 2.5-3.0, most recent creatinine 1.89. COPD (chronic obstructive pulmonary disease) Depression DM2 (diabetes mellitus, type 2) DVT (deep venous thrombosis) 2016 - completed Coumadin course GERD (gastroesophageal reflux disease) HLD (hyperlipidemia) HTN (hypertension) Hypothyroidism On home oxygen therapy 3L O2 CONT. JEANNETTE on CPAP Osteoarthritis Oxygen dependent Pulmonary embolism 2016 - completed Coumadin therapy Weight loss, unintentional 50lbs over the past 6 months Surgical History H/O sinus surgery History of colonoscopy History of total right knee replacement Family History Father Diabetes Mother Hypertension Brother Diabetes Sister Diabetes Social History Smoking Status: Former smoker Second Hand Exposure: No; Hx Alcohol Use: No Hx Substance Use: No Preferred Language: Croatian Communication Ability: Effective [employer] Required: No Beliefs That Will Affect Care: None marital status: Current Living Situation: Spouse Other Information That Helps Us Care for You: No Feels Safe at Home: Yes Safety Concerns: Feels Safe At This Time Assistive Devices: Cane, Glasses, Oxygen - Continuous and Walker Review of Systems A total of 10 systems reviewed and were otherwise negative All systems reviewed & are unremarkable except as noted in HPI & below Physical Exam Vital Signs Vital Signs - 24 hr 02/13/21 02:41 02/13/21 02:52 02/13/21 04:30 Temperature 36.9 C 36.9 C Temperature Source Oral Oral Pulse Rate 88 Pulse Rate [Finger] 88 80 Respiratory Rate 18 18 18 Respiratory Effort / Characteristics Non-Labored Spontaneous Non-Labored Spontaneous Non-Labored Spontaneous Respiratory Depth Normal Normal Normal Blood Pressure 178/98 H Blood Pressure [Right Arm] 178/98 H 159/84 H Blood Pressure Mean 124 Blood Pressure Mean [Right Arm] 124 109 Pulse Oximetry 99 99 100 Oxygen Delivery Method Nasal Cannula Nasal Cannula Nasal Cannula Oxygen Flow Rate 2 2 2 Sepsis Recent Fever Within 48 Hours No Sepsis New/Unexplained Change in Mental Status No Sepsis Action Taken by Nursing No Action Required 02/13/21 06:00 02/13/21 07:00 02/13/21 09:00 Temperature Temperature Source Pulse Rate Pulse Rate [Finger] 77 80 77 Respiratory Rate 18 18 18 Respiratory Effort / Characteristics Non-Labored Spontaneous Respiratory Depth Normal Blood Pressure Blood Pressure [Right Arm] 164/69 H 167/79 H 160/64 H Blood Pressure Mean Blood Pressure Mean [Right Arm] 100 108 96 Pulse Oximetry 99 97 97 Oxygen Delivery Method Nasal Cannula Nasal Cannula Nasal Cannula Oxygen Flow Rate 2 2 2 Sepsis Recent Fever Within 48 Hours Sepsis New/Unexplained Change in Mental Status Sepsis Action Taken by Nursing GENERAL: alert, well appearing, well nourished, no distress, non-toxic EYE EXAM: normal conjunctiva, PERRL and EOM's grossly intact OROPHARYNX: no exudate, no erythema, lips, buccal mucosa, and tongue normal and mucous membranes are moist NECK: supple, no nuchal rigidity, no adenopathy, non-tender LUNGS: Clear to auscultation. Normal chest wall mechanics, no w/r/r HEART: no murmurs, S1 normal and S2 normal ABDOMEN: abdomen soft, non-tender, normo-active bowel sounds, no masses, no rebound or guarding. BACK: Back is symmetrical on inspection and there is no deformity, no midline tenderness, no CVA tenderness. SKIN: no rashes and no bruising UPPER EXTREMITIES: upper extremities are grossly normal. FROM, nml pulses b/l. LOWER EXTREMITIES: No pitting edema. FROM, nml pulses b/l. NEURO EXAM: Normal sensorium, cranial nerves II-XII grossly intact, normal speech, no gross weakness of arms, no gross weakness of legs. Gross sensation intact. Course Course 0411: Patient resting, vital signs stable. 0800: Patient updated on UA results. Patient was given dose of IV Rocephin. Will perform ambulatory trial here. 0855: Patient unable to sit up on the bedside in a steady fashion. 0910: [facility]ed with [facility]. Administered Medications Acetaminophen (Acetaminophen 325 Mg Tab) 650 mg PO Q4H PRN PRN Reason: Pain or Fever Stop: 03/15/21 12:55 Last Admin: 02/14/21 20:44 Dose: 650 mg Documented by: [id number] Amlodipine Besylate (Amlodipine Besylate 5 Mg Tab) 5 mg PO DAILY [facility] Stop: 03/15/21 13:29 Last Admin: 02/14/21 09:13 Dose: 5 mg Documented by: [id number] Admin: 02/13/21 14:25 Dose: 5 mg Documented by: [id number] Aspirin (Aspirin 81 Mg Ectab) [facility] Stop: 03/15/21 12:55 Last Admin: 02/14/21 09:20 Dose: 81 mg Documented by: [id number] Admin: 02/13/21 14:28 Dose: 81 mg Documented by: [id number] Cyanocobalamin (Cyanocobalamin 500 Mcg Tablet (Vitamin B-12)) 1,000 mcg PO QAM [facility] Stop: 03/15/21 12:55 Last Admin: 02/14/21 09:13 Dose: 1,000 mcg Documented by: [id number] Admin: 02/13/21 14:31 Dose: 1,000 mcg Documented by: [id number] Famotidine (Famotidine 20 Mg Tab) 20 mg PO DAILY [facility] Stop: 03/15/21 13:29 Last Admin: 02/14/21 09:13 Dose: 20 mg Documented by: [id number] Admin: 02/13/21 14:26 Dose: 20 mg Documented by: [id number] Fenofibrate (Fenofibrate Nanocrystallized 145 Mg Tablet) 145 mg PO QAM [facility] Stop: 03/15/21 12:55 Last Admin: 02/14/21 09:13 Dose: 145 mg Documented by: [id number] Admin: 02/13/21 14:32 Dose: 145 mg Documented by: [id number] Fluticasone Propionate (Fluticasone Propionate Na Spr 16 Gm Btl) 2 sprays NA DAILY [facility] Stop: 03/15/21 13:29 Last Admin: 02/14/21 09:20 Dose: 2 sprays Documented by: [id number] Admin: 02/13/21 14:32 Dose: 2 sprays Documented by: [id number] Folic Acid (Folic Acid 1 Mg Tab) 1 mg PO QAM [facility] Stop: 03/16/21 13:14 Last Admin: 02/14/21 14:23 Dose: 1 mg Documented by: [id number] Furosemide (Furosemide 20 Mg Tab) 20 mg PO QAM [facility] Stop: 03/16/21 13:14 Last Admin: 02/14/21 14:23 Dose: 20 mg Documented by: [id number] Ceftriaxone Sodium 2,000 mg/ (Dextrose) 70 mls @ 100 mls/hr IV Q24H [facility]; Protocol Stop: 02/23/21 08:59 Last Infusion: 02/14/21 10:06 Dose: 0 mls/hr Documented by: [id number] Admin: 02/14/21 09:20 Dose: 100 mls/hr Documented by: [id number] Lamotrigine (Lamotrigine 25 Mg Tab) 25 mg PO DAILY [facility] Stop: 03/15/21 13:29 Last Admin: 02/14/21 09:13 Dose: 25 mg Documented by: [id number] Admin: 02/13/21 14:26 Dose: 25 mg Documented by: [id number] Levothyroxine Sodium (Levothyroxine Sodium 100 Mcg Tablet) 100 mcg PO DAILYBB [facility] Stop: 03/15/21 12:55 Last Admin: 02/14/21 05:49 Dose: 100 mcg Documented by: [id number] Admin: 02/13/21 14:32 Dose: 100 mcg Documented by: [id number] Pantoprazole Sodium (Pantoprazole 40 Mg Tab) 40 mg PO DAILY [facility] Stop: 03/15/21 12:55 Last Admin: 02/14/21 09:13 Dose: 40 mg Documented by: [id number] Admin: 02/13/21 14:26 Dose: 40 mg Documented by: [id number] Sertraline HCl (Sertraline Hcl 100 Mg Tablet) 100 mg PO DAILY [facility] Stop: 03/15/21 12:55 Last Admin: 02/14/21 09:13 Dose: 100 mg Documented by: [id number] Admin: 02/13/21 14:27 Dose: 100 mg Documented by: [id number] Tamsulosin HCl (Tamsulosin Hcl 0.4 Mg Cap) 0.4 mg PO DAILY [facility] Stop: 03/15/21 12:55 Last Admin: 02/14/21 09:13 Dose: 0.4 mg Documented by: [id number] Admin: 02/13/21 14:27 Dose: 0.4 mg Documented by: [id number] Discontinued Medications Atorvastatin Calcium (Atorvastatin 40 Mg Tab) 40 mg PO QAM [facility] Stop: 03/15/21 12:55 Last Admin: 02/14/21 09:20 Dose: 40 mg Documented by: [id number] Admin: 02/13/21 14:28 Dose: 40 mg Documented by: [id number] Sodium Chloride (Nss 1000ml) 1,000 mls @ 250 mls/hr IV .Q4H [facility] Stop: 03/15/21 02:59 Last Infusion: 02/13/21 19:06 Dose: 0 mls/hr Documented by: [id number] Admin: 02/13/21 15:30 Dose: 250 mls/hr Documented by: [id number] Admin: 02/13/21 15:30 Dose: Not Given Documented by: [id number] Admin: 02/13/21 07:14 Dose: Not Given Documented by: [id number] Infusion: 02/13/21 07:14 Dose: 0 mls/hr Documented by: [id number] Admin: 02/13/21 03:13 Dose: 250 mls/hr Documented by: [id number] Magnesium Sulfate/Dextrose (Magnesium Sulfate / D5w) 1 gm in 100 mls @ 100 mls/hr IV NOW STA Stop: 02/13/21 06:14 Last Infusion: 02/13/21 06:43 Dose: 0 mls/hr Documented by: [id number] Admin: 02/13/21 05:30 Dose: 100 mls/hr Documented by: [id number] Ceftriaxone Sodium (Rocephin) 2,000 mg in 70 mls @ 140 mls/hr IV NOW STA Stop: 02/13/21 08:10 Last Infusion: 02/13/21 08:58 Dose: 0 mls/hr Documented by: [id number] Admin: 02/13/21 08:23 Dose: 140 mls/hr Documented by: [id number] Perflutren Lipid Microsphere (Perflutren Lipid Microsphere (Definity)) 2 ml IV ONCE ONE Stop: 02/14/21 07:26 Last Admin: 02/14/21 07:25 Dose: 2 ml Documented by: [id number] Medical Decision Making Differential Diagnosis Differential Diagnosis includes but is not limited to dehydration, stroke, anemia, hypoglycemia, hyponatremia, hypernatremia, urinary tract infection, pneumonia, bronchitis, sepsis, gastroenteritis, additional abdominal pathology, metabolic abnormalities and infections. Medical Records Attestation: I reviewed the patient's medical records. Home Medications Current Medication List: was personally reviewed by me Laboratory Data Attestation: I reviewed the patient's lab results. Result diagrams: 02/14/21 07:44 02/14/21 07:44 Lab Results 02/13/21 02/13/21 02/13/21 Range/Units 03:05 03:05 06:00 WBC 7.81 (4.8-10.8) K/uL RBC 4.37 L (4.7-6.1) M/uL Hgb 13.6 L (14.0-18.0) g/dL Hct 42.7 (42-52) % MCV 97.7 (80-100) fL MCH 31.1 (25-34) pg MCHC 31.9 L (32-36) g/dL RDW Std Deviation 59.4 H (36.4-46.3) fL RDW Coeff of Luigi 16.6 H (11.5-14.5) % Plt Count 213 (130-400) K/uL MPV 11.2 H (7.4-10.4) fL Immature Gran % (Auto) 0.3 % Neut % (Auto) 78.2 % Lymph % (Auto) 12.0 % [place] % (Auto) 7.4 % Eos % (Auto) 1.8 % Baso % (Auto) 0.3 % Neut # (Auto) 6.11 (1.4-6.5) K/uL Lymph # (Auto) 0.94 L (1.2-3.4) K/uL [place] # (Auto) 0.58 (0.11-0.59) K/uL Eos # (Auto) 0.14 (0-0.5) K/uL Baso # (Auto) 0.02 (0-0.2) K/uL Immature Gran # (Auto) 0.02 (0.00-0.02) K/uL Sodium 137 (136-145) mmol/L Potassium 4.1 (3.5-5.1) mmol/L Chloride 104 (98-107) mmol/L Carbon Dioxide 30 (21-32) mmol/L Anion Gap 3.0 (3-11) BUN 28 H (7-18) mg/dl Creatinine 1.96 H (0.6-1.4) mg/dl Est Cr Clr Drug Dosing 36.4 ml/min Est GFR ( Amer) 36.1 ml/min Est GFR (Non-Af Amer) 31.2 ml/min BUN/Creatinine Ratio 14.5 (10-20) Glucose 171 H (70-99) mg/dl Calcium 9.6 (8.5-10.1) mg/dl Magnesium 1.6 L (1.8-2.4) mg/dl Total Bilirubin 2.5 H (0.2-1) mg/dl AST 179 H (15-37) U/L ALT 67 (12-78) U/L Alkaline Phosphatase 138 H (45-117) U/L Troponin I < 0.015 (0-0.045) ng/ml Total Protein 7.0 (6.4-8.2) gm/dl Albumin 2.4 L (3.4-5.0) gm/dl Globulin 4.6 H (2.5-4.0) gm/dl Albumin/Globulin Ratio 0.5 L (0.9-2) Lipase 537 H (73-393) U/L TSH 10.500 H (0.300-4.500) uIu/ml Free T4 1.62 H (0.8-1.6) ng/dl Urine Color Dark Yellow Urine Appearance Cloudy A (Clear) Urine pH 5.0 (4.5-7.5) Ur Specific [place] 1.024 (1.000-1.030) Urine Protein Trace H (Negative) Urine Glucose (UA) Negative (Negative) Urine Ketones Negative (Negative) Urine Blood Negative (Negative) Urine Nitrite Positive A (Negative) Urine Bilirubin 2+ H (Negative) Urine Urobilinogen Negative (Negative) Ur Leukocyte Esterase 2+ H (Negative) Urine WBC (Auto) >30 H (0-5) /hpf Urine RBC (Auto) 5-10 H (0-4) /hpf U Hyaline Cast (Auto) 10-30 H (0-5) /lpf U Epithel Cells (Auto) 10-20 H (0-5) /lpf Urine Bacteria (Auto) 1+ H (Negative) Ur Renal Epithelial Cell Not Reportable Urine Mucus Present A (None Prsent) SARS-CoV-2, RNA, NAAT (NEGATIVE) 02/13/21 Range/Units 09:50 WBC (4.8-10.8) K/uL RBC (4.7-6.1) M/uL Hgb (14.0-18.0) g/dL Hct (42-52) % MCV (80-100) fL MCH (25-34) pg MCHC (32-36) g/dL RDW Std Deviation (36.4-46.3) fL RDW Coeff of Luigi (11.5-14.5) % Plt Count (130-400) K/uL MPV (7.4-10.4) fL Immature Gran % (Auto) % Neut % (Auto) % Lymph % (Auto) % [place] % (Auto) % Eos % (Auto) % Baso % (Auto) % Neut # (Auto) (1.4-6.5) K/uL Lymph # (Auto) (1.2-3.4) K/uL [place] # (Auto) (0.11-0.59) K/uL Eos # (Auto) (0-0.5) K/uL Baso # (Auto) (0-0.2) K/uL Immature Gran # (Auto) (0.00-0.02) K/uL Sodium (136-145) mmol/L Potassium (3.5-5.1) mmol/L Chloride (98-107) mmol/L Carbon Dioxide (21-32) mmol/L Anion Gap (3-11) BUN (7-18) mg/dl Creatinine (0.6-1.4) mg/dl Est Cr Clr Drug Dosing ml/min Est GFR ( Amer) ml/min Est GFR (Non-Af Amer) ml/min BUN/Creatinine Ratio (10-20) Glucose (70-99) mg/dl Calcium (8.5-10.1) mg/dl Magnesium (1.8-2.4) mg/dl Total Bilirubin (0.2-1) mg/dl AST (15-37) U/L ALT (12-78) U/L Alkaline Phosphatase (45-117) U/L Troponin I (0-0.045) ng/ml Total Protein (6.4-8.2) gm/dl Albumin (3.4-5.0) gm/dl Globulin (2.5-4.0) gm/dl Albumin/Globulin Ratio (0.9-2) Lipase (73-393) U/L TSH (0.300-4.500) uIu/ml Free T4 (0.8-1.6) ng/dl Urine Color Urine Appearance (Clear) Urine pH (4.5-7.5) Ur Specific [place] (1.000-1.030) Urine Protein (Negative) Urine Glucose (UA) (Negative) Urine Ketones (Negative) Urine Blood (Negative) Urine Nitrite (Negative) Urine Bilirubin (Negative) Urine Urobilinogen (Negative) Ur Leukocyte Esterase (Negative) Urine WBC (Auto) (0-5) /hpf Urine RBC (Auto) (0-4) /hpf U Hyaline Cast (Auto) (0-5) /lpf U Epithel Cells (Auto) (0-5) /lpf Urine Bacteria (Auto) (Negative) Ur Renal Epithelial Cell Urine Mucus (None Prsent) SARS-CoV-2, RNA, NAAT NEGATIVE (NEGATIVE) Imaging Data My Impression: X-ray: I interpreted the following studies. Chest: A single view study of the chest was reviewed and was negative for cardiomegaly, focal infiltrate, effusion, pulmonary edema, or wide mediastinum. Radiologist's Impression: Chest X-Ray 02/13/21 02:51 XR chest 1V portable CLINICAL HISTORY: weakness. Evaluate cardiopulmonary status COMPARISON STUDY: 07/10/2018 TECHNIQUE: 1 view of the chest FINDINGS: Single frontal view of the chest demonstrates the cardiomediastinal silhouette to be within normal limits. There is again asymmetric elevation of the right hemidiaphragm with crowding the bronchovascular markings at the right lung base. The lungs are clear of alveolar opacities. There is no evidence for pleural effu beverley. There is no evidence for vascular congestion. There is no acute osseous pathology. IMPRESSION: No acute cardiopulmonary disease. ACT 112: Negative or not required by law. Electronically signed by: Sachin Terrazas M.D. 02/13/2021 8:30 AM ECG Data Attestation: I personally reviewed and interpreted this ECG as follows: Indication: + weakness Rate (beats per minute): 85 Rhythm: + normal sinus ECG Intervals/blocks: + Normal QRS and + Normal QT ECG Canon: + Normal ECG ST segments: + Normal ST segments MDM Narrative This is an 80 yo from home via EMS due to ground level fall and worsening wea kness. VS stable and no acute dysrhythmia noted on tele. Patient with CKD which appeared stable. Mildly low mag which was repleted. Patient found to have UTI, no hx of prior, no cultures in EMR. Patient started on IV rocephin. Patient unable to sit steadily at beside to additional attempt at s tanding/walking was felt to be unsafe at this time. Patient normally uses a walker at home. No evidence of bacteremia/sepsis. I do not suspect occult injury based on pt reported description of fall and no additional exam findings of trauma. Given infection, weakness, ambulatory dysfunction, case discussed with hospitalist for additional evaluation and mgmt. An order was placed for continuous cardiac monitoring. The monitor shows a rate of _90_ with normal sinus__ rhythm. Impression & Plan Generalized weakness, Fall, Hypomagnesemia, Acute UTI (urinary tract infection), CKD (chronic kidney disease) Discharge Plan Visit Data Chief Complaint: Fall Stated Complaint: FALL/RT. KNEE PAIN;BILAT LEG PAIN ED Provider: Sejal Silver Discharge Problem: Generalized weakness, Fall, Hypomagnesemia, Acute UTI (urinary tract infection), CKD (chronic kidney disease) Patient Disposition: Admitted As Inpatient Discharge Instructions Interventions: ED Discharge Assessment Last Done: 02/13/21 17:18 Discharge Problem: Fall Qualifiers: Encounter type: initial encounter Qualified Code(s): W19.XXXA - Unspecified fall, initial encounter CKD (chronic kidney disease) Qualifiers: Chronic kidney disease stage: unspecified stage Qualified Code(s): N18.9 - Chronic kidney disease, unspecified
[2021-02-13 07:10] LABS: Appearance Urine Cloudy (Clear); Blood Urine Negative (Negative); Color Urine Dark Yellow; Glucose Urine UA Negative (Negative); Ketones Urine Negative (Negative); Leukocyte Esterase Urine 2+ (Negative); Nitrite Urine Positive (Negative); Protein Urine Trace (Negative); Specific Gravity Urine 1.024 (1.000-1.030); Urobilinogen Urine Negative (Negative); WBC Urine Automated >30 /hpf (0-5)
--- NOTE | 2021-02-13 07:22 | Electrocardiogram Report ---
Test Reason : Blood Pressure : / mmHG Vent. Rate : 085 BPM Atrial Rate : 085 BPM P-R Int : 142 ms QRS Dur : 084 ms QT Int : 390 ms P-R-T Axes : 042 023 044 degrees QTc Int : 464 ms Normal sinus rhythm with sinus arrhythmia Normal ECG When compared with ECG of 10-JUL-2018 12:46, No significant change was found Confirmed by Joe Hairston ([id number]) on 02/13/2021 7:22:23 AM Referred By: REFERRED SELF Confirmed By:Nate Hairston
[2021-02-13 07:37] LABS: Bilirubin Urine 2+ (Negative); Mucus Urine Present (None Prsent)
[2021-02-13 07:38] LABS: Bacteria Urine Automated 1+ (Negative)
[2021-02-13] MEDS ORDERED: cefTRIAXone SODIUM 2,000 MG/70 ML BAG IV STA (07:41)
--- NOTE | 2021-02-13 08:31 | XRay Report ---
XR chest 1V portable CLINICAL HISTORY: weakness. Evaluate cardiopulmonary status COMPARISON STUDY: 07/10/2018 TECHNIQUE: 1 view of the chest FINDINGS: Single frontal view of the chest demonstrates the cardiomediastinal silhouette to be within normal li mits. There is again asymmetric elevation of the right hemidiaphragm with crowding the bronchovascula r markings at the right lung base. The lungs are clear of alveolar opacities. There is no evidence fo r pleural effusion. There is no evidence for vascular congestion. There is no acute osseous pathology . IMPRESSION: No acute cardiopulmonary disease. ACT 112: Negative or not required by law. Electronically signed by: Sachin Terrazas M.D. 02/13/2021 8:30 AM
[2021-02-13] MEDS ORDERED: ACETAMINOPHEN 325 MG TAB PO PRN (12:56)
[2021-02-13] MEDS ORDERED: traMADol HCL 50 MG TABLET PO PRN (12:56)
[2021-02-13] MEDS ORDERED: ONDANSETRON INJ 2 MG/ML 2 ML VIAL IV PRN (12:56)
[2021-02-13] MEDS: amLODIPine BESYLATE 5 MG TAB PO SCH (14:25)
[2021-02-13] MEDS: PANTOprazole 40 MG TAB PO SCH (14:26)
[2021-02-13] MEDS: FAMOTIDINE 20 MG TAB PO SCH (14:26)
[2021-02-13] MEDS: lamoTRIgine 25 MG TAB PO SCH (14:26)
[2021-02-13] MEDS: SERTRALINE HCL 100 MG TABLET PO SCH (14:27)
[2021-02-13] MEDS: TAMSULOSIN HCL 0.4 MG CAP PO SCH (14:27)
[2021-02-13] MEDS: ASPIRIN 81 MG ECTAB PO SCH (14:28)
[2021-02-13] MEDS: ATORVASTATIN 40 MG TAB PO SCH (14:28)
[2021-02-13] MEDS: CYANOCOBALAMIN 500 MCG TABLET (VITAMIN B-12) PO SCH (14:31)
[2021-02-13] MEDS: LEVOTHYROXINE SODIUM 100 MCG TABLET PO SCH (14:32)
[2021-02-13] MEDS: FLUTICASONE PROPIONATE NA SPR 16 GM BTL SCH (14:32)
[2021-02-13] MEDS: FENOFIBRATE NANOCRYSTALLIZED 145 MG TABLET PO SCH (14:32)
--- NOTE | 2021-02-13 18:27 | History & Physical Report ---
Date of Service February 13, 2021 Assessment & Plan (1) Generalized weakness: Plan: 80-year-old male with history of COPD, chronic respiratory failure, on 2 L of oxygen, hypertension, CKD stage IV Recurrent syncope, generalized anxiety disorder, presenting with weakness x3 weeks. GENERALIZED WEAKNESS, STATUS POST MECHANICAL FALL LIKELY SECONDARY TO UNDERLYING URINARY TRACT INFECTION History of BPH Does not meet culture for sepsis Denies any other pain in his body secondary to fall Urine culture: Pending Blood cultures: Pending Ceftriaxone 2 mg IV ordered Continue tamsulosin Check TSH, Lyme screen, vitamin B12 and folate Check orthostatic vital signs PT and OT evaluation May need to transition to rehab BILATERAL LOWER EXTREMITY EDEMA On Lasix 20 mg daily--> hold for today in light of weakness, dry oral mucosa Echocardiogram ordered Check Doppler ultrasound of the legs Monitor in [facility] telemetry COPD Chronic respiratory failure on 2 L of oxygen History of obstructive sleep apnea Not in exacerbation Chest x-ray clear Continue O2 supplementation with 2 L via nasal cannula Not on BiPAP at home HYPERTENSION Continue amlodipine, aspirin CKD STAGE IV Stable GENERAL ANXIETY DISORDER Continue Zoloft, Lamictal CODE STATUS: Full code per patient Disposition Lives at home with his Awaiting PT and OT evaluation May need to transition to rehab upon discharge from the hospital Admission and Anticipated Discharge Date Admission Date: February 13, 2021 History of Present Illness Chief Complaint: Weakness Primary Care Provider: Jayla Yu MD 80 year old with history of weakness, chronic respiratory failure on 2 L of oxygen, hypertension, CKD stage IV presenting with weakness x3 weeks. Patient was in his usual state of health until 3 weeks ago when he started to feel generally weak. Denies any fevers or chills problems with urination or bowel movement changes with chronic cough, shortness of breath, headache, dizziness, diarrhea. This is associated with poor appetite. Patient states weakness progressed to the point that he fell while walking after using the bathroom. He fell on his knees, but denies any presyncope, dizziness, chest pain, shortness of breath, palpitations. At the ER, patient was noted to have possible UTI on his urinalysis. Ceftriaxone IV started. On my exam, the patient was seen resting in bed, not in distress, comfortable. Denies active shortness of breath, chest pain, headache, dizziness, abdominal pain, nausea or vomiting. States he still feels weak. Denies other symptoms. Allergies Allergy/AdvReac Type Severity Reaction Status Date / Time No Known Allergies Allergy Verified 02/13/21 02:57 Home Medications Medication Instructions Recorded Confirmed Type aspirin 81 mg tablet,delayed 81 mg PO QAM 12/05/17 02/13/21 History release (Aspirin Low Dose) atorvastatin 40 mg tablet 40 mg PO QAM 12/05/17 02/13/21 History fenofibrate nanocrystallized 145 145 mg PO QAM 12/05/17 02/13/21 History mg tablet fluticasone propionate 50 2 spray INTRANASAL DAILY 12/05/17 02/13/21 History mcg/actuation nasal spray,suspension (Flonase Allergy Relief) levothyroxine 100 mcg tablet 100 mcg PO QAM 12/05/17 02/13/21 History tramadol 50 mg tablet 50 mg PO DAILY PRN 12/05/17 02/13/21 History cyanocobalamin (vitamin B-12) 1,000 mcg PO QAM 07/10/18 02/13/21 History 1,000 mcg tablet (Vitamin B-12) melatonin 5 mg tablet 5 mg PO HS PRN 07/10/18 02/13/21 History amlodipine 5 mg tablet 5 mg PO DAILY 02/13/21 02/13/21 History cholecalciferol (vitamin D3) 25 25 mcg PO DAILY 02/13/21 02/13/21 History mcg (1,000 unit) capsule (Vitamin D3) famotidine 20 mg tablet (Pepcid) 20 mg PO DAILY 02/13/21 02/13/21 History furosemide 20 mg tablet (Lasix) 20 mg PO DAILY 02/13/21 02/13/21 History lamotrigine 25 mg tablet (Lamictal) 25 mg PO DAILY 02/13/21 02/13/21 History omeprazole 20 mg capsule,delayed 20 mg PO DAILY 02/13/21 02/13/21 History release sertraline 100 mg tablet (Zoloft) 100 mg PO DAILY 02/13/21 02/13/21 History tamsulosin 0.4 mg capsule 0.4 mg PO DAILY 02/13/21 02/13/21 History Past Med/Surg History Medical History (Updated 02/13/21 @ 08:35 by Sejal Silver DO) AAA (abdominal aortic aneurysm) "3.2cm, stable" CKD (chronic kidney disease), stage IV Avg creatinine 2.5-3.0, most recent creatinine 1.89. COPD (chronic obstructive pulmonary disease) Depression DM2 (diabetes mellitus, type 2) DVT (deep venous thrombosis) 2016 - completed Coumadin course GERD (gastroesophageal reflux disease) HLD (hyperlipidemia) HTN (hypertension) Hypothyroidism On home oxygen therapy 3L O2 CONT. JEANNETTE on CPAP Osteoarthritis Oxygen dependent Pulmonary embolism 2016 - completed Coumadin therapy Weight loss, unintentional 50lbs over the past 6 months Surgical History H/O sinus surgery History of colonoscopy History of total right knee replacement Family History Father Diabetes Mother Hypertension Brother Diabetes Sister Diabetes Social History Smoking Status: Former smoker Second Hand Exposure: No; Hx Alcohol Use: No Hx Substance Use: No Preferred Language: Bulgarian Communication Ability: Effective Feather Boner Required: No Beliefs That Will Affect Care: None marital status: Current Living Situation: Spouse Other Information That Helps Us Care for You: No Feels Safe at Home: Yes Safety Concerns: Feels Safe At This Time Assistive Devices: Cane, Oxygen - Continuous and Walker Review of Systems Review of Systems: all noted and negative except for above Physical Exam Physical Exam: General- oriented x 3, not in distress, speaks in sentences with no effort or accessory muscle use Head- atraumatic Eyes- PERRL, EOMI, anicteric ENT- oropharynx clear Edentulous Positive oral thrush Dry oral mucosa Neck- supple, no JVD, no adenopathy, no thyromegaly; carotids +2/2, no bruits appreciated Lungs- clear to auscultation bilaterally, no rales/wheezes Heart- normal rate, regular rhythm; no murmur, no gallop, no rub appreciated Abdomen- normal bowel sounds, nondistended, soft, nontender, no masses or hepatosplenomegaly Extremities-positive mild lower extremity edema, no calf tenderness; peripheral pulses intact Neuro- alert, oriented x 3; CN 2-12 grossly intact; motor 4/5bilaterally;sensation 100% on all extremities; no other gross focal neurologic deficits Skin- warm & dry Results & Data Results & Data ([facility]) Vital Signs (Past 12 Hours) Vital Signs Pulse Resp BP Pulse Ox Pulse Ox 02/13/21 16:00 80 20 149/77 H 96 02/13/21 15:23 79 16 157/78 H 95 02/13/21 14:00 70 18 174/98 H 95 96 02/13/21 11:00 74 18 98 02/13/21 09:00 77 18 160/64 H 97 02/13/21 07:00 80 18 167/79 H 97 all noted and reviewed including below Code Status & VTE Plan VTE Prophylaxis Plan VTE Prophylaxis will be ordered: Yes
[2021-02-14] MEDS: LEVOTHYROXINE SODIUM 100 MCG TABLET PO SCH (05:49)
[2021-02-14] MEDS ORDERED: PERFLUTREN LIPID MICROSPHERE (DEFINITY) IV ONE (07:25)
[2021-02-14 08:23] LABS: Basophils # (auto) 0.03 K/uL (0-0.2); Basophils % (auto) 0.4 %; Eosinophils # (auto) 0.13 K/uL (0-0.5); Eosinophils % (auto) 1.7 %; Hematocrit (blood only) 36.1 % (42-52); Hemoglobin 11.3 g/dL (14.0-18.0); Immature Granulocytes # (auto) 0.02 K/uL (0.00-0.02); Immature Granulocytes % (auto) 0.3 %; Lymphocytes # (auto) 1.01 K/uL (1.2-3.4); Lymphocytes % (auto) 13.6 %; Mean Corpuscular Hemoglobin 30.5 pg (25-34); Mean Corpuscular Hgb Conc 31.3 g/dL (32-36); Mean Corpuscular Volume 97.3 fL (80-100); Mean Platelet Volume 11.9 fL (7.4-10.4); Monocytes % (auto) 12.1 %; Neutrophils # (auto) 5.35 K/uL (1.4-6.5); Neutrophils % (auto) 71.9 %; Platelet Count 179 K/uL (130-400); RDW Coefficient of Variation 16.8 % (11.5-14.5); RDW Standard Deviation 60.1 fL (36.4-46.3); Red Blood Count 3.71 M/uL (4.7-6.1); White Blood Count 7.44 K/uL (4.8-10.8)
[2021-02-14 08:56] LABS: BUN Creatinine Ratio 15.9 (10-20); Creatinine Clr Calc Pharmacy 37.6 ml/min; Est GFR (African American) 36.8 ml/min; Est GFR (Non-African American) 31.7 ml/min; Magnesium 1.9 mg/dl (1.8-2.4); Potassium 4.1 mmol/L (3.5-5.1)
[2021-02-14 09:07] LABS: Thyroid Stimulating Hormone 4.81 uIu/ml (0.300-4.500)
[2021-02-14 09:11] LABS: Lyme Ab IgG w/WB Rflx Negative (Negative); Lyme Ab IgM w/WB Rflx Negative (Negative)
[2021-02-14] MEDS: FENOFIBRATE NANOCRYSTALLIZED 145 MG TABLET PO SCH (09:13)
[2021-02-14] MEDS: lamoTRIgine 25 MG TAB PO SCH (09:13)
[2021-02-14] MEDS: FAMOTIDINE 20 MG TAB PO SCH (09:13)
[2021-02-14] MEDS: CYANOCOBALAMIN 500 MCG TABLET (VITAMIN B-12) PO SCH (09:13)
[2021-02-14] MEDS: TAMSULOSIN HCL 0.4 MG CAP PO SCH (09:13)
[2021-02-14] MEDS: SERTRALINE HCL 100 MG TABLET PO SCH (09:13)
[2021-02-14] MEDS: amLODIPine BESYLATE 5 MG TAB PO SCH (09:13)
[2021-02-14] MEDS: PANTOprazole 40 MG TAB PO SCH (09:13)
[2021-02-14] MEDS: FLUTICASONE PROPIONATE NA SPR 16 GM BTL SCH (09:20)
[2021-02-14] MEDS: ASPIRIN 81 MG ECTAB PO SCH (09:20)
[2021-02-14] MEDS: ATORVASTATIN 40 MG TAB PO SCH (09:20)
[2021-02-14] MEDS: cefTRIAXone SODIUM 2,000 MG in DEXTROSE 5% 50 ML IV SCH (09:20)
[2021-02-14 10:28] LABS: Vitamin B12 > 2000 pg/ml (193-986)
--- NOTE | 2021-02-14 11:25 | Ultrasound Report ---
BILATERAL LOWER EXTREMITY VENOUS DOPPLER HISTORY: Bilateral leg edema, r/o dvt COMPARISON STUDY: None. FINDINGS: There is normal compressibility, flow, and augmentation within the bilateral lower extremit y deep venous systems. IMPRESSION: No DVT within the right or left lower extremity. ACT 112: Negative or not required by law. Electronically signed by: Marko France M.D. 02/14/2021 11:23 AM
--- NOTE | 2021-02-14 13:09 | Hospitalist Progress Note ---
Date of Service February 14, 2021 Assessment & Plan (1) Generalized weakness: Plan: 80-year-old male with history of COPD, chronic respiratory failure, on 2 L of oxygen, hypertension, CKD stage IV Recurrent syncope, generalized anxiety disorder, presenting with weakness x3 weeks. GENERALIZED WEAKNESS, STATUS POST MECHANICAL FALL LIKELY SECONDARY TO UNDERLYING URINARY TRACT INFECTION FOLATE DEFICIENCY History of BPH Does not meet culture for sepsis Denies any other pain in his body secondary to fall Urine culture: Negative so far Blood cultures: Pending Ceftriaxone 2 mg IV ordered Continue tamsulosin Folate: Low Replace with folic acid Lyme screen: Negative TSH elevated, free T4 elevated Repeat TFTs tomorrow morning to confirm Brain MRI ordered Check orthostatic vital signs PT and OT evaluation May need to transition to rehab BILATERAL LOWER EXTREMITY EDEMA On Lasix 20 mg daily--> hold for today in light of weakness, dry oral mucosa Echocardiogram: EF 55 to 60%, left ventricular systolic function is normal Doppler ultrasound: Negative for DVT Continue usual Lasix daily COPD Chronic respiratory failure on 2 L of oxygen History of obstructive sleep apnea Not in exacerbation Chest x-ray clear Continue O2 supplementation with 2 L via nasal cannula Not on BiPAP at home HYPERTENSION Continue amlodipine, aspirin CKD STAGE IV Stable GENERAL ANXIETY DISORDER Continue Zoloft, Lamictal CODE STATUS: Full code per patient Disposition Lives at home with his Awaiting PT and OT evaluation May need to transition to rehab upon discharge from the hospital Admission and Anticipated Discharge Date Admission Date: February 13, 2021 Subjective Follow-up for weakness, possible UTI, etc. Seen sitting up in bed, having lunch States he has difficulty reaching for his utensils, cups, etc. Still feels generally weak, also reports numbness of his extremities Denies paresthesias No difficulty with speech, swallowing No abdominal pain, problems urination, fevers or chills No other symptoms Review of Systems Review of Systems: all noted and negative except for above Physical Exam Physical Exam: General- oriented x 2, not in distress, speaks in sentences with no effort or accessory muscle use Eyes- anicteric Neck- no JVD Lungs- clear BS Bl No crackles or wheezing Heart- normal rate, regular rhythm; no murmurs Abdomen- normal bowel sounds, nondistended, soft, nontender Extremities- no pretibial edema, no calf tenderness Neuro- alert, oriented x 3; motor strength 4/5, sensation 50% lower extremities No other focal deficits Skin- warm & dry Results & Data Results & Data ([facility]) Vital Signs (Past 12 Hours) Vital Signs Temp Pulse Pulse Resp BP Pulse Ox 02/14/21 10:17 84 02/14/21 10:11 81 02/14/21 07:10 36.3 C L 85 20 166/70 H 93 02/14/21 03:23 36.6 C 76 18 171/71 H 98 all noted and reviewed including below
--- NOTE | 2021-02-14 13:13 | Neurology Consultation ---
Date of Consultation February 14, 2021 Assessment & Plan (1) Generalized weakness: 1. PT/OT for discharge needs- may need inpatient training for ambulation and weakness issues 2. EMG as outpatient if weakness persists after PT 3. primary team for medication management 4. no further imaging at this time from neurology stand point will be available for questions concerns. (2) Fall: 1. fall precautions Supervising Physician Co-Signing Physician Notes Patient was seen and examined. He is currently admitted due to fall at home using a walker. Found to have possible UTI. Noting some mild numbness in his feet and weakness in his legs which has been ongoing since COVID. Right leg is worse due to knee pain. On examine his dorsiflexion and EHL are strong 5/5. Left leg raise is 5/5 with some weakness in right leg raise possibly due to pain. CK level is normal. Recommend PT/OT for rehabilitation as decondition is likely contributing. He ambulates with waker at home. If weakness persist despite PT will arrange EMG as outpatient. Discuss plan with patient and agreeable. PLease call with any further questions or concerns. History of Present Illness Reason for Consultation: generalized weakness, numbness Requesting Physician: Edwin Mckeon MD Attending Physician: Edwin Mckeon MD History of Present Illness Chaz is an 80 year old male brought in by EMS to [facility] 02/13/21 due to ground- level fall and concern for weakness. He does normally walk with a walker and this evening he felt his legs were weak and he slowly "crumpled to the floor". he did not hitting his head or losing consciousness. He does have chronic pain in the right leg due to prior knee replacement.he noted the weakness started after his covid vaccine about 3 weeks ago He still feels weak. denies CP, SOB, abdominal pain, one sided weakness, numbness tingling N, V, swallowing issues. weakness is same all day does not get worse as day goes on. Allergies Allergy/AdvReac Type Severity Reaction Status Date / Time No Known Allergies Allergy Verified 02/13/21 02:57 Home Medications Medication Instructions Recorded Confirmed Type aspirin 81 mg tablet,delayed 81 mg PO QAM 12/05/17 02/13/21 History release (Aspirin Low Dose) atorvastatin 40 mg tablet 40 mg PO QAM 12/05/17 02/13/21 History fenofibrate nanocrystallized 145 145 mg PO QAM 12/05/17 02/13/21 History mg tablet fluticasone propionate 50 2 spray INTRANASAL DAILY 12/05/17 02/13/21 History mcg/actuation nasal spray,suspension (Flonase Allergy Relief) levothyroxine 100 mcg tablet 100 mcg PO QAM 12/05/17 02/13/21 History tramadol 50 mg tablet 50 mg PO DAILY PRN 12/05/17 02/13/21 History cyanocobalamin (vitamin B-12) 1,000 mcg PO QAM 07/10/18 02/13/21 History 1,000 mcg tablet (Vitamin B-12) melatonin 5 mg tablet 5 mg PO HS PRN 07/10/18 02/13/21 History amlodipine 5 mg tablet 5 mg PO DAILY 02/13/21 02/13/21 History cholecalciferol (vitamin D3) 25 25 mcg PO DAILY 02/13/21 02/13/21 History mcg (1,000 unit) capsule (Vitamin D3) famotidine 20 mg tablet (Pepcid) 20 mg PO DAILY 02/13/21 02/13/21 History furosemide 20 mg tablet (Lasix) 20 mg PO DAILY 02/13/21 02/13/21 History lamotrigine 25 mg tablet (Lamictal) 25 mg PO DAILY 02/13/21 02/13/21 History omeprazole 20 mg capsule,delayed 20 mg PO DAILY 02/13/21 02/13/21 History release sertraline 100 mg tablet (Zoloft) 100 mg PO DAILY 02/13/21 02/13/21 History tamsulosin 0.4 mg capsule 0.4 mg PO DAILY 02/13/21 02/13/21 History Patient History Medical History (Updated 02/13/21 @ 08:35 by Sejal Silver DO) AAA (abdominal aortic aneurysm) "3.2cm, stable" CKD (chronic kidney disease), stage IV Avg creatinine 2.5-3.0, most recent creatinine 1.89. COPD (chronic obstructive pulmonary disease) Depression DM2 (diabetes mellitus, type 2) DVT (deep venous thrombosis) 2016 - completed Coumadin course GERD (gastroesophageal reflux disease) HLD (hyperlipidemia) HTN (hypertension) Hypothyroidism On home oxygen therapy 3L O2 CONT. JEANNETTE on CPAP Osteoarthritis Oxygen dependent Pulmonary embolism 2016 - completed Coumadin therapy Weight loss, unintentional 50lbs over the past 6 months Surgical History H/O sinus surgery History of colonoscopy History of total right knee replacement Family History Father Diabetes Mother Hypertension Brother Diabetes Sister Diabetes Social History Smoking Status: Former smoker Second Hand Exposure: No; Hx Alcohol Use: No Hx Substance Use: No Preferred Language: Mozambican Communication Ability: Effective Cloth Tester Required: No Beliefs That Will Affect Care: None marital status: Current Living Situation: Spouse Other Information That Helps Us Care for You: No Feels Safe at Home: Yes Safety Concerns: Feels Safe At This Time Assistive Devices: Cane, Glasses, Oxygen - Continuous and Walker Review of Systems Review of Systems: All systems reviewed & are unremarkable except as noted in HPI & below Physical Exam Physical Exam: Physical Exam: Constitutional: appearance over nourished, no facial asymmetry Ears, Nose, Mouth and Throat: mucous membranes moist, no injection and skin normal, eyes normal Cardiovascular: normal S-1 and S-2 and regular rate and rhythm Respiratory: course breath sounds Musculoskeletal: mild peripheral edema and good distal pulses, stressing of deltoids no fatiging Skin: no stigmata of neurocutaneous disease noted and normal and intact Eyes: extraocular muscles intact (EOMI) and pupils equal, round and reactive to light (PERRL) NEUROLOGIC EXAMINATION: Mental status: Alert and interactive Oriented to full date and location Oriented to person Speech muffles speech likely due to no teeth Cranial Nerves smile eye brow raise symmetric, no fatiguing with eye lid stressing Reflexes: Deep tendon reflexes were symmetrical and graded 2/5. down going toes Sensory: light cool touch intact Coordination: finger to nose Gait/Stance: Posture sitting up in bed Motor: Negative for pronator drift of out stretched arms with eyes closed. Strength: hand account supervisor biceps triceps bilaterally 4+/5, hip flex 4+/5 bilaterally Results & Data ([facility]) Vital Signs (Past 12 Hours) Vital Signs Temp Pulse Pulse Resp BP Pulse Ox 02/14/21 10:17 84 02/14/21 10:11 81 02/14/21 07:10 36.3 C L 85 20 166/70 H 93 02/14/21 03:23 36.6 C 76 18 171/71 H 98 Laboratory Results Abnormal lab results 02/14/21 02/14/21 02/14/21 Range/Units 07:44 07:44 07:44 RBC 3.71 L (4.7-6.1) M/uL Hgb 11.3 L (14.0-18.0) g/dL Hct 36.1 L (42-52) % MCHC 31.3 L (32-36) g/dL RDW Std Deviation 60.1 H (36.4-46.3) fL RDW Coeff of Luigi 16.8 H (11.5-14.5) % MPV 11.9 H (7.4-10.4) fL Lymph # (Auto) 1.01 L (1.2-3.4) K/uL [place] # (Auto) 0.90 H (0.11-0.59) K/uL BUN 31 H (7-18) mg/dl Creatinine 1.93 H (0.6-1.4) mg/dl Vitamin B12 > 2000 H (193-986) pg/ml Folate 3.70 L (>5.38) ng/ml TSH 4.810 H (0.300-4.500) uIu/ml Diagnostic Findings CXR-No acute cardiopulmonary disease. LE doppler-No DVT within the right or left lower extremity. (1) Fall Encounter type: initial encounter Qualified Code(s): W19.XXXA - Unspecified fall, initial encounter
[2021-02-14] MEDS: FOLIC ACID 1 MG TAB PO SCH (14:23)
[2021-02-14] MEDS: FUROSEMIDE 20 MG TAB PO SCH (14:23)
--- NOTE | 2021-02-14 20:24 | Magnetic Resonance Report ---
MRI OF THE BRAIN WITHOUT IV CONTRAST CLINICAL HISTORY: Generalized weakness. Numbness. COMPARISON STUDY: CT of the brain dated 07/10/2018. TECHNIQUE: MRI of the brain was performed utilizing various T1 and T2-weighted sequences in the axial , sagittal, and coronal planes. IV contrast was not administered for this examination. FINDINGS: Brain parenchyma: There is age-related involutional change noting mild to moderate subcortical and pe riventricular microangiopathic disease. There is no hemorrhage or mass effect. There is no restricted diffusion to suggest acute ischemia. Bear-white matter differentiation is preserved. No extra-axial fluid collection is seen. The cerebellar tonsils are normal in configuration. Ventricles, sulci, and cisterns: Prominent secondary to involutional change. Cavum septum pellucidum is incidentally noted. Pituitary and sella: Unremarkable. Intracranial vasculature: Normal flow voids are maintained at the skull base. Orbits: The bony orbits are grossly intact. Orbital contents are normal in appearance. Sinuses and mastoids: There is a left mastoid effusion. The right mastoid air cells and the paranasal sinuses are clear. Calvarium: Unremarkable. Cervical cord: Partially visualized cervical spinal cord is normal in morphology and signal intensity . IMPRESSION: No acute intracranial abnormality. ACT 112: Negative or not required by law. Electronically signed by: Luke Villalta M.D. 02/14/2021 8:23 PM
[2021-02-15] MEDS: LEVOTHYROXINE SODIUM 100 MCG TABLET PO SCH (06:06)
[2021-02-15] MEDS: FOLIC ACID 1 MG TAB PO SCH (08:32)
[2021-02-15] MEDS: FAMOTIDINE 20 MG TAB PO SCH (08:33)
[2021-02-15] MEDS: lamoTRIgine 25 MG TAB PO SCH (08:33)
[2021-02-15] MEDS: amLODIPine BESYLATE 5 MG TAB PO SCH (08:34)
[2021-02-15] MEDS: SERTRALINE HCL 100 MG TABLET PO SCH (08:34)
[2021-02-15] MEDS: PANTOprazole 40 MG TAB PO SCH (08:34)
[2021-02-15] MEDS: TAMSULOSIN HCL 0.4 MG CAP PO SCH (08:34)
[2021-02-15] MEDS: CYANOCOBALAMIN 500 MCG TABLET (VITAMIN B-12) PO SCH (08:35)
[2021-02-15] MEDS: FENOFIBRATE NANOCRYSTALLIZED 145 MG TABLET PO SCH (08:35)
[2021-02-15] MEDS: ASPIRIN 81 MG ECTAB PO SCH (08:35)
[2021-02-15] MEDS: FLUTICASONE PROPIONATE NA SPR 16 GM BTL SCH (08:36)
[2021-02-15] MEDS: cefTRIAXone SODIUM 2,000 MG in DEXTROSE 5% 50 ML IV SCH (08:44)
[2021-02-15] MEDS: FUROSEMIDE 20 MG TAB PO SCH (09:20)
[2021-02-15] MEDS ORDERED: FUROSEMIDE INJ 20 MG/2 ML VIAL IV ONE (09:38)
[2021-02-15 10:22] LABS: Basophils # (auto) 0.02 K/uL (0-0.2); Basophils % (auto) 0.3 %; Eosinophils % (auto) 1.4 %; Hemoglobin 10.9 g/dL (14.0-18.0); Immature Granulocytes # (auto) 0.01 K/uL (0.00-0.02); Immature Granulocytes % (auto) 0.1 %; Lymphocytes # (auto) 0.91 K/uL (1.2-3.4); Lymphocytes % (auto) 12.3 %; Mean Corpuscular Hemoglobin 30.5 pg (25-34); Mean Corpuscular Hgb Conc 32.1 g/dL (32-36); Mean Corpuscular Volume 95.2 fL (80-100); Monocytes # (auto) 0.84 K/uL (0.11-0.59); Monocytes % (auto) 11.4 %; Neutrophils % (auto) 74.5 %; Platelet Count 166 K/uL (130-400); RDW Coefficient of Variation 16.6 % (11.5-14.5); RDW Standard Deviation 58.6 fL (36.4-46.3); Red Blood Count 3.57 M/uL (4.7-6.1); White Blood Count 7.38 K/uL (4.8-10.8)
[2021-02-15 10:52] LABS: Albumin Level 1.9 gm/dl (3.4-5.0); BUN Creatinine Ratio 16.9 (10-20); Calcium 9.1 mg/dl (8.5-10.1); Est GFR (African American) 36.1 ml/min; Est GFR (Non-African American) 31.2 ml/min
[2021-02-15 11:10] LABS: Albumin Globulin Ratio 0.5 (0.9-2); Bilirubin,Total 2.2 mg/dl (0.2-1); Phosphorus 2.4 mg/dl (2.5-4.9); Thyroid Stimulating Hormone 4.99 uIu/ml (0.300-4.500); Total Protein 5.9 gm/dl (6.4-8.2)
[2021-02-15 11:27] LABS: Potassium 3.6 mmol/L (3.5-5.1)
[2021-02-15 11:29] LABS: T4 Free Thyroxine 1.58 ng/dl (0.8-1.6)
[2021-02-15 11:33] LABS: Magnesium 1.8 mg/dl (1.8-2.4)
--- NOTE | 2021-02-15 14:10 | Hospitalist Progress Note ---
Date of Service February 15, 2021 Assessment & Plan (1) Generalized weakness: Plan: 80-year-old male with history of COPD, chronic respiratory failure, on 2 L of oxygen, hypertension, CKD stage IV Recurrent syncope, generalized anxiety disorder, presenting with weakness x3 weeks. GENERALIZED WEAKNESS, STATUS POST MECHANICAL FALL LIKELY SECONDARY TO FOLATE DEFICIENCY, DECONDITIONING? History of BPH Denies any other pain in his body secondary to fall Brain MRI: no acute process Does not meet culture for sepsis Urine culture: Negative Ceftriaxone 2 mg IV --> d/c Continue tamsulosin Folate: Low Replaced with folic acid Lyme screen: Negative TSH elevated at 4, free T4 normal--> will not treat subclinical hypothyroidism given age repeat TFTs in 1 month Check orthostatic vital signs PT: recommending SNF BILATERAL LOWER EXTREMITY EDEMA On Lasix 20 mg daily--> hold for today in light of weakness, dry oral mucosa Echocardiogram: EF 55 to 60%, left ventricular systolic function is normal Doppler ultrasound: Negative for DVT Continue usual Lasix daily COPD Chronic respiratory failure on 2 L of oxygen History of obstructive sleep apnea Not in exacerbation Chest x-ray clear Continue O2 supplementation with 2 L via nasal cannula Not on BiPAP at home HYPERTENSION Continue amlodipine, aspirin CKD STAGE IV Stable GENERAL ANXIETY DISORDER Continue Zoloft, Lamictal CODE STATUS: Full code per patient Disposition Lives at home with his Awaiting PT and OT evaluation May need to transition to rehab upon discharge from the hospital Admission and Anticipated Discharge Date Admission Date: February 13, 2021 Subjective ff up for generalized weakness, etc seen resting in bed, comfortable, sitting up states he feels slightly better today still feels on the weak side no new weakness and numbness no fever/chills no other symptoms Review of Systems Review of Systems: all noted and negative except for above Physical Exam Physical Exam: General- oriented x 2, not in distress, speaks in sentences with no effort or accessory muscle use Eyes- anicteric Neck- no JVD Lungs- clear BS BL Heart- normal rate, regular rhythm; no murmurs Abdomen- normal bowel sounds, nondistended, soft, nontender Extremities- no pretibial edema, no calf tenderness Neuro- alert, oriented x 3; no new gross focal neurologic deficits Skin- warm & dry Results & Data Results & Data ([facility]) Vital Signs (Past 12 Hours) Vital Signs Temp Pulse Resp BP Pulse Ox 02/15/21 11:12 36.4 C L 84 20 176/72 H 90 02/15/21 07:37 36.7 C 84 20 180/76 H 95 02/15/21 03:19 36.7 C 82 18 177/66 H 98 all noted and reviewed including below
[2021-02-15] MEDS: POT PHOSPHATE MONOBASIC W/ SOD TAB PO SCH ×3 (15:45→22:05)
[2021-02-16] MEDS: LEVOTHYROXINE SODIUM 100 MCG TABLET PO SCH (06:28)
[2021-02-16] MEDS: PANTOprazole 40 MG TAB PO SCH (08:16)
[2021-02-16] MEDS: FLUTICASONE PROPIONATE NA SPR 16 GM BTL SCH (08:16)
[2021-02-16] MEDS: FAMOTIDINE 20 MG TAB PO SCH (08:17)
[2021-02-16] MEDS: CYANOCOBALAMIN 500 MCG TABLET (VITAMIN B-12) PO SCH (08:17)
[2021-02-16] MEDS: POT PHOSPHATE MONOBASIC W/ SOD TAB PO SCH ×4 (08:17→20:22)
[2021-02-16] MEDS: FENOFIBRATE NANOCRYSTALLIZED 145 MG TABLET PO SCH (08:17)
[2021-02-16] MEDS: lamoTRIgine 25 MG TAB PO SCH (08:18)
[2021-02-16] MEDS: SERTRALINE HCL 100 MG TABLET PO SCH (08:18)
[2021-02-16] MEDS: ASPIRIN 81 MG ECTAB PO SCH (08:18)
[2021-02-16] MEDS: FOLIC ACID 1 MG TAB PO SCH (08:19)
[2021-02-16] MEDS: FUROSEMIDE 20 MG TAB PO SCH (08:19)
[2021-02-16] MEDS: TAMSULOSIN HCL 0.4 MG CAP PO SCH (08:19)
[2021-02-16] MEDS: amLODIPine BESYLATE 5 MG TAB PO SCH (08:19)
--- NOTE | 2021-02-16 20:33 | Hospitalist Progress Note ---
Date of Service February 16, 2021 Assessment & Plan (1) Generalized weakness: Plan: 80-year-old male with history of COPD, chronic respiratory failure, on 2 L of oxygen, hypertension, CKD stage IV Recurrent syncope, generalized anxiety disorder, presenting with weakness x3 weeks. GENERALIZED WEAKNESS STATUS POST MECHANICAL FALL MRI of the brain showed no acute intracranial abnormality Lyme screen negative PT OT on board Recommending SNF placement Abnormal UA Urine culture negative Ceftriaxone was discontinued Continue tamsulosin Folate deficiency Replaced with folic acid Abnormal TSH Elevated TSH and normal T4 Possible due t basically subclinical lower hypothyroidism given age repeat TFTs in 1 month BILATERAL LOWER EXTREMITY EDEMA On Lasix 20 mg daily--> hold for today in light of weakness, dry oral mucosa Echocardiogram: EF 55 to 60%, left ventricular systolic function is normal Doppler ultrasound: Negative for DVT Continue usual Lasix daily COPD Chronic respiratory failure on 2 L of oxygen History of obstructive sleep apnea Not in exacerbation Chest x-ray clear Continue O2 supplementation with 2 L via nasal cannula Not on BiPAP at home HYPERTENSION Continue amlodipine, aspirin CKD STAGE IV Stable GENERAL ANXIETY DISORDER Continue Zoloft, Lamictal CODE STATUS: Full code per patient Disposition Waiting for placement to SNF Admission and Anticipated Discharge Date Admission Date: February 13, 2021 Subjective Patient was seen and examined for follow-up of generalized weakness Lying in bed with no acute distress Continue to feel weak Denies chest pain, dizziness, tremor. Review of Systems Review of Systems: All systems reviewed & are unremarkable except as noted in Subjective Physical Exam Physical Exam: General- No acute distress Head- atraumatic Eyes- PERRL, EOMI, ENT- oropharynx clear Neck- supple, no JVD Lungs- +diminished nothing breath sounds Heart- regular rhythm; no murmur Abdomen- normal bowel sounds, soft, nontender Extremities- no calf tenderness, trace edema Neuro- alert, oriented x 3; PERRL, EOMI; no facial palsy; no dysarthria Skin- warm & dry Results & Data Results & Data ([facility]) Vital Signs (Past 12 Hours) Vital Signs Temp Pulse Pulse Resp BP BP Pulse Ox 02/16/21 19:00 36.6 C 82 20 181/83 H 96 02/16/21 14:46 36.3 C L 86 20 165/69 H 94 02/16/21 14:19 83 02/16/21 11:02 37.0 C 82 18 144/68 H 95
[2021-02-17] MEDS: amLODIPine BESYLATE 5 MG TAB PO SCH (05:39)
[2021-02-17] MEDS: LEVOTHYROXINE SODIUM 100 MCG TABLET PO SCH (05:39)
[2021-02-17] MEDS: PANTOprazole 40 MG TAB PO SCH (09:38)
[2021-02-17] MEDS: FOLIC ACID 1 MG TAB PO SCH (09:38)
[2021-02-17] MEDS: TAMSULOSIN HCL 0.4 MG CAP PO SCH (09:39)
[2021-02-17] MEDS: CYANOCOBALAMIN 500 MCG TABLET (VITAMIN B-12) PO SCH (09:39)
[2021-02-17] MEDS: FAMOTIDINE 20 MG TAB PO SCH (09:39)
[2021-02-17] MEDS: FLUTICASONE PROPIONATE NA SPR 16 GM BTL SCH (09:39)
[2021-02-17] MEDS: POT PHOSPHATE MONOBASIC W/ SOD TAB PO SCH ×4 (09:39→19:51)
[2021-02-17] MEDS: SERTRALINE HCL 100 MG TABLET PO SCH (09:39)
[2021-02-17] MEDS: FUROSEMIDE 20 MG TAB PO SCH (09:39)
[2021-02-17] MEDS: lamoTRIgine 25 MG TAB PO SCH (09:39)
[2021-02-17] MEDS: ASPIRIN 81 MG ECTAB PO SCH (09:39)
[2021-02-17] MEDS: FENOFIBRATE NANOCRYSTALLIZED 145 MG TABLET PO SCH (09:39)
--- NOTE | 2021-02-17 16:49 | Hospitalist Progress Note ---
Date of Service February 17, 2021 Assessment & Plan (1) Generalized weakness: Plan: 80-year-old male with history of COPD, chronic respiratory failure, on 2 L of oxygen, hypertension, CKD stage IV Recurrent syncope, generalized anxiety disorder, presenting with weakness x3 weeks. GENERALIZED WEAKNESS STATUS POST MECHANICAL FALL MRI of the brain showed no acute intracranial abnormality Lyme screen negative PT OT on board Recommending SNF placement Waiting for placement Abnormal UA Urine culture negative Ceftriaxone was discontinued Continue tamsulosin Folate deficiency Replaced with folic acid Abnormal TSH Elevated TSH and normal T4 Possible due t basically subclinical lower hypothyroidism given age repeat TFTs in 1 month HTN Amlodipine resumed Continue monitor BP BILATERAL LOWER EXTREMITY EDEMA On Lasix 20 mg daily--> hold for today in light of weakness, dry oral mucosa Echocardiogram: EF 55 to 60%, left ventricular systolic function is normal Doppler ultrasound: Negative for DVT Continue Lasix daily COPD Chronic respiratory failure on 2 L of oxygen History of obstructive sleep apnea Not in exacerbation Chest x-ray clear Continue O2 supplementation with 2 L via nasal cannula Not on BiPAP at home HYPERTENSION Continue amlodipine, aspirin CKD STAGE IV Stable GENERAL ANXIETY DISORDER Continue Zoloft, Lamictal CODE STATUS: Full code per patient Disposition Waiting for placement to SNF Admission and Anticipated Discharge Date Admission Date: February 13, 2021 Subjective Patient was seen and examined for follow-up of generalized weakness Lying in bed with no acute distress Pt said that he continues to feel Denies chest pain, dizziness, tremor. Review of Systems Review of Systems: All systems reviewed & are unremarkable except as noted in Subjective Physical Exam Physical Exam: General- No acute distress Head- atraumatic Eyes- PERRL, EOMI, ENT- oropharynx clear Neck- supple, no JVD Lungs- +diminished nothing breath sound Heart- regular rhythm; no murmur Abdomen- normal bowel sounds, soft, nontender Extremities- no calf tenderness, trace edema Neuro- alert, oriented x 3; PERRL, EOMI; no facial palsy; no dysarthria Skin- warm & dry Results & Data Results & Data ([facility]) Vital Signs (Past 12 Hours) Vital Signs Temp Pulse Pulse Resp BP Pulse Ox 02/17/21 15:38 78 02/17/21 15:02 36.6 C 85 18 169/74 H 93 02/17/21 11:14 36.3 C L 94 H 17 142/71 H 96 02/17/21 07:32 37.1 C 84 18 161/63 H 88 L
[2021-02-18] MEDS: LEVOTHYROXINE SODIUM 100 MCG TABLET PO SCH (06:31)
[2021-02-18] MEDS: FLUTICASONE PROPIONATE NA SPR 16 GM BTL SCH (08:19)
[2021-02-18] MEDS: POT PHOSPHATE MONOBASIC W/ SOD TAB PO SCH ×4 (08:19→20:17)
[2021-02-18] MEDS: FENOFIBRATE NANOCRYSTALLIZED 145 MG TABLET PO SCH (08:20)
[2021-02-18] MEDS: PANTOprazole 40 MG TAB PO SCH (08:20)
[2021-02-18] MEDS: ASPIRIN 81 MG ECTAB PO SCH (08:20)
[2021-02-18] MEDS: amLODIPine BESYLATE 5 MG TAB PO SCH (08:20)
[2021-02-18] MEDS: FOLIC ACID 1 MG TAB PO SCH (08:20)
[2021-02-18] MEDS: FUROSEMIDE 20 MG TAB PO SCH (08:21)
[2021-02-18] MEDS: FAMOTIDINE 20 MG TAB PO SCH (08:21)
[2021-02-18] MEDS: lamoTRIgine 25 MG TAB PO SCH (08:21)
[2021-02-18] MEDS: CYANOCOBALAMIN 500 MCG TABLET (VITAMIN B-12) PO SCH (08:21)
[2021-02-18] MEDS: TAMSULOSIN HCL 0.4 MG CAP PO SCH (08:21)
[2021-02-18] MEDS: SERTRALINE HCL 100 MG TABLET PO SCH (09:31)
--- NOTE | 2021-02-18 21:41 | Hospitalist Progress Note ---
Date of Service February 18, 2021 Assessment & Plan (1) Generalized weakness: Plan: 80-year-old male with history of COPD, chronic respiratory failure, on 2 L of oxygen, hypertension, CKD stage IV Recurrent syncope, generalized anxiety disorder, presenting with weakness x3 weeks. GENERALIZED WEAKNESS STATUS POST MECHANICAL FALL MRI of the brain showed no acute intracranial abnormality Lyme screen negative PT OT on board Recommending SNF placement Waiting for placement Abnormal UA Urine culture negative Ceftriaxone was discontinued Continue tamsulosin Folate deficiency Replaced with folic acid Abnormal TSH Elevated TSH and normal T4 Possible due t basically subclinical lower hypothyroidism given age repeat TFTs in 1 month HTN Continue Amlodipine 10mg and Furosemide 20mg Continue monitor BP BILATERAL LOWER EXTREMITY EDEMA On Lasix 20 mg daily--> hold for today in light of weakness, dry oral mucosa Echocardiogram: EF 55 to 60%, left ventricular systolic function is normal Doppler ultrasound: Negative for DVT Continue Lasix daily COPD Chronic respiratory failure on 2 L of oxygen History of obstructive sleep apnea Not in exacerbation Chest x-ray clear Continue O2 supplementation with 2 L via nasal cannula Not on BiPAP at home HYPERTENSION Continue amlodipine, aspirin CKD STAGE IV Stable GENERAL ANXIETY DISORDER Continue Zoloft Lamictal CODE STATUS: Full code per patient Disposition Waiting for placement to SNF Admission and Anticipated Discharge Date Admission Date: February 13, 2021 Subjective Patient was seen and examined for follow-up of generalized weakness Lying in bed with no acute distress Denies chest pain, palpitation, dizziness, tremor Waiting for placement Review of Systems Review of Systems: All systems reviewed & are unremarkable except as noted in Subjective Physical Exam Physical Exam: General- No acute distress Head- atraumatic Eyes- PERRL, EOMI, ENT- oropharynx clear Neck- supple, no JVD Lungs- +diminished nothing breath sound Heart- regular rhythm; no murmur Abdomen- normal bowel sounds, soft, nontender Extremities- no calf tenderness, trace edema Neuro- alert, oriented x 3; PERRL, EOMI; no facial palsy; no dysarthria Skin- warm & dry Results & Data Results & Data ([facility]) Vital Signs (Past 12 Hours) Vital Signs Temp Pulse Pulse Resp BP BP Pulse Ox 02/18/21 19:02 36.7 C 86 18 150/69 H 93 02/18/21 15:43 36.8 C 82 20 148/69 H 97 02/18/21 15:04 86 02/18/21 11:03 36.4 C L 87 20 119/70 95 02/18/21 10:38 36.5 C 19 94 02/18/21 10:02 80
[2021-02-19] MEDS: LEVOTHYROXINE SODIUM 100 MCG TABLET PO SCH (06:13)
[2021-02-19 07:32] LABS: Hematocrit (blood only) 33.9 % (42-52); Hemoglobin 10.9 g/dL (14.0-18.0); Mean Corpuscular Hemoglobin 30.4 pg (25-34); Mean Corpuscular Hgb Conc 32.2 g/dL (32-36); Mean Corpuscular Volume 94.4 fL (80-100); Mean Platelet Volume 11.4 fL (7.4-10.4); Platelet Count 171 K/uL (130-400); RDW Coefficient of Variation 16.5 % (11.5-14.5); RDW Standard Deviation 56.6 fL (36.4-46.3); Red Blood Count 3.59 M/uL (4.7-6.1); White Blood Count 5.69 K/uL (4.8-10.8)
[2021-02-19] MEDS: PANTOprazole 40 MG TAB PO SCH (07:52)
[2021-02-19] MEDS: lamoTRIgine 25 MG TAB PO SCH (07:52)
[2021-02-19] MEDS: ASPIRIN 81 MG ECTAB PO SCH (07:52)
[2021-02-19] MEDS: POT PHOSPHATE MONOBASIC W/ SOD TAB PO SCH ×4 (07:52→21:08)
[2021-02-19] MEDS: FENOFIBRATE NANOCRYSTALLIZED 145 MG TABLET PO SCH (07:52)
[2021-02-19] MEDS: TAMSULOSIN HCL 0.4 MG CAP PO SCH (07:52)
[2021-02-19] MEDS: FOLIC ACID 1 MG TAB PO SCH (07:52)
[2021-02-19] MEDS: FUROSEMIDE 20 MG TAB PO SCH (07:52)
[2021-02-19] MEDS: FAMOTIDINE 20 MG TAB PO SCH (07:53)
[2021-02-19] MEDS: CYANOCOBALAMIN 500 MCG TABLET (VITAMIN B-12) PO SCH (07:53)
[2021-02-19] MEDS: amLODIPine BESYLATE 5 MG TAB PO SCH (07:53)
[2021-02-19] MEDS: FLUTICASONE PROPIONATE NA SPR 16 GM BTL SCH (07:53)
[2021-02-19] MEDS: SERTRALINE HCL 100 MG TABLET PO SCH (07:53)
[2021-02-19 08:05] LABS: BUN Creatinine Ratio 20.8 (10-20); Calcium 8.2 mg/dl (8.5-10.1); Creatinine Clr Calc Pharmacy 43.3 ml/min; Est GFR (African American) 44.1 ml/min; Est GFR (Non-African American) 38.1 ml/min; Magnesium 1.4 mg/dl (1.8-2.4); Potassium 3.3 mmol/L (3.5-5.1)
[2021-02-19] MEDS ORDERED: POTASSIUM CHLORIDE 10 MEQ TABCR PO STA (08:24)
[2021-02-19 08:59] LABS: Albumin Level 1.8 gm/dl (3.4-5.0); Bilirubin Direct 1.2 mg/dl (0-0.2); Bilirubin,Total 1.6 mg/dl (0.2-1); Total Protein 5.4 gm/dl (6.4-8.2)
[2021-02-19] MEDS: MAGNESIUM SULFATE / D5W 1 GM/100 ML BAG IV SCH ×2 (09:11→11:23)
--- NOTE | 2021-02-19 18:45 | Hospitalist Progress Note ---
Date of Service February 19, 2021 Assessment & Plan (1) Generalized weakness: Plan: 80-year-old male with history of COPD, chronic respiratory failure, on 2 L of oxygen, hypertension, CKD stage IV Recurrent syncope, generalized anxiety disorder, presenting with weakness x3 weeks. GENERALIZED WEAKNESS STATUS POST MECHANICAL FALL MRI of the brain showed no acute intracranial abnormality Lyme screen negative PT OT on board Recommending SNF placement Waiting for placement Electrolyte abnormality Potassium 3.3 and magnesium 1.4 Electrolyte replaced continue monitor electrolytes Abnormal UA Urine culture negative Ceftriaxone was discontinued Continue tamsulosin Folate deficiency Replaced with folic acid Abnormal TSH Elevated TSH and normal T4 Possible due t basically subclinical lower hypothyroidism given age repeat TFTs in 1 month HTN Continue Amlodipine 10mg and Furosemide 20mg Continue monitor BP BILATERAL LOWER EXTREMITY EDEMA On Lasix 20 mg daily--> hold for today in light of weakness, dry oral mucosa Echocardiogram: EF 55 to 60%, left ventricular systolic function is normal Doppler ultrasound: Negative for DVT Continue Lasix daily COPD Chronic respiratory failure on 2 L of oxygen History of obstructive sleep apnea Not in exacerbation Chest x-ray clear Continue O2 supplementation with 2 L via nasal cannula Not on BiPAP at home HYPERTENSION Continue amlodipine, aspirin CKD STAGE IV creatinine 1.6 Stable GENERAL ANXIETY DISORDER Continue Zoloft, Lamictal CODE STATUS: Full code per patient Disposition Waiting for placement to SNF Admission and Anticipated Discharge Date Admission Date: February 13, 2021 Subjective Patient was seen and examined for follow-up of generalized weakness Sitting in chair with no acute distress watching TV Denies chest pain, palpitation, dizziness, tremor Waiting for placement Review of Systems Review of Systems: All systems reviewed & are unremarkable except as noted in Subjective Physical Exam Physical Exam: General- No acute distress Head- atraumatic Eyes- PERRL, EOMI, ENT- oropharynx clear Neck- supple, no JVD Lungs- +diminished nothing breath sound Heart- regular rhythm; no murmur Abdomen- normal bowel sounds, soft, nontender Extremities- no calf tenderness, trace edema Neuro- alert, oriented x 3; PERRL, EOMI; no facial palsy; no dysarthria Skin- warm & dry Results & Data Results & Data ([facility]) Vital Signs (Past 12 Hours) Vital Signs Temp Pulse Pulse Resp BP Pulse Ox 02/19/21 15:26 78 02/19/21 12:49 79 02/19/21 12:05 36.6 C 20 91 02/19/21 07:00 36.9 C 74 18 174/77 H 89 L
[2021-02-20] MEDS: LEVOTHYROXINE SODIUM 100 MCG TABLET PO SCH (05:56)
[2021-02-20 06:50] LABS: BUN Creatinine Ratio 21.7 (10-20); Creatinine Clr Calc Pharmacy 42.4 ml/min; Est GFR (Non-African American) 36.2 ml/min; Magnesium 1.9 mg/dl (1.8-2.4); Phosphorus 4.1 mg/dl (2.5-4.9); Potassium 3.6 mmol/L (3.5-5.1)
[2021-02-20] MEDS: FAMOTIDINE 20 MG TAB PO SCH (08:07)
[2021-02-20] MEDS: ASPIRIN 81 MG ECTAB PO SCH (08:07)
[2021-02-20] MEDS: POT PHOSPHATE MONOBASIC W/ SOD TAB PO SCH ×4 (08:07→21:28)
[2021-02-20] MEDS: PANTOprazole 40 MG TAB PO SCH (08:07)
[2021-02-20] MEDS: amLODIPine BESYLATE 5 MG TAB PO SCH (08:07)
[2021-02-20] MEDS: FENOFIBRATE NANOCRYSTALLIZED 145 MG TABLET PO SCH (08:07)
[2021-02-20] MEDS: SERTRALINE HCL 100 MG TABLET PO SCH (08:07)
[2021-02-20] MEDS: TAMSULOSIN HCL 0.4 MG CAP PO SCH (08:08)
[2021-02-20] MEDS: CYANOCOBALAMIN 500 MCG TABLET (VITAMIN B-12) PO SCH (08:08)
[2021-02-20] MEDS: lamoTRIgine 25 MG TAB PO SCH (08:08)
[2021-02-20] MEDS: FLUTICASONE PROPIONATE NA SPR 16 GM BTL SCH (08:08)
[2021-02-20] MEDS: FUROSEMIDE 20 MG TAB PO SCH (08:08)
[2021-02-20] MEDS: FOLIC ACID 1 MG TAB PO SCH (08:08)
--- NOTE | 2021-02-20 23:27 | Hospitalist Progress Note ---
Date of Service February 20, 2021 Assessment & Plan (1) Generalized weakness: Plan: 80-year-old male with history of COPD, chronic respiratory failure, on 2 L of oxygen, hypertension, CKD stage IV Recurrent syncope, generalized anxiety disorder, presenting with weakness x3 weeks. GENERALIZED WEAKNESS STATUS POST MECHANICAL FALL MRI of the brain showed no acute intracranial abnormality Lyme screen negative PT OT on board Recommending SNF placement Waiting for placement Electrolyte abnormality Potassium 3.3 and magnesium 1.4 Electrolyte replaced continue monitor electrolytes Abnormal UA Urine culture negative Ceftriaxone was discontinued Continue tamsulosin Folate deficiency Replaced with folic acid Abnormal TSH Elevated TSH and normal T4 Possible due t basically subclinical lower hypothyroidism given age repeat TFTs in 1 month HTN Continue Amlodipine 10mg and Furosemide 20mg Continue monitor BP BILATERAL LOWER EXTREMITY EDEMA On Lasix 20 mg daily--> hold for today in light of weakness, dry oral mucosa Echocardiogram: EF 55 to 60%, left ventricular systolic function is normal Doppler ultrasound: Negative for DVT Continue Lasix daily COPD Chronic respiratory failure on 2 L of oxygen History of obstructive sleep apnea Not in exacerbation Chest x-ray clear Continue O2 supplementation with 2 L via nasal cannula Not on BiPAP at home HYPERTENSION Continue amlodipine, aspirin CKD STAGE IV creatinine 1.6 Stable GENERAL ANXIETY DISORDER Continue Zoloft, Lamictal CODE STATUS: Full code per patient Disposition Waiting for placement to SNF Admission and Anticipated Discharge Date Admission Date: February 13, 2021 Subjective Patient was seen and examined for follow-up of generalized weakness Sitting in chair with no acute distress watching TV Denies chest pain, palpitation, dizziness, tremor Waiting for placement Review of Systems Review of Systems: All systems reviewed & are unremarkable except as noted in Subjective Physical Exam Physical Exam: General- No acute distress Head- atraumatic Eyes- PERRL, EOMI, ENT- oropharynx clear Neck- supple, no JVD Lungs- +diminished nothing breath sound Heart- regular rhythm; no murmur Abdomen- normal bowel sounds, soft, nontender Extremities- no calf tenderness, trace edema Neuro- alert, oriented x 3; PERRL, EOMI; no facial palsy; no dysarthria Skin- warm & dry Results & Data Results & Data ([facility]) Vital Signs (Past 12 Hours) Vital Signs Temp Pulse Pulse Resp BP Pulse Ox 02/20/21 19:14 36.6 C 86 18 151/72 H 96 02/20/21 15:23 36.5 C 81 79 18 149/79 H 98
[2021-02-21] MEDS: LEVOTHYROXINE SODIUM 100 MCG TABLET PO SCH (07:21)
[2021-02-21] MEDS: FENOFIBRATE NANOCRYSTALLIZED 145 MG TABLET PO SCH (07:58)
[2021-02-21] MEDS: POT PHOSPHATE MONOBASIC W/ SOD TAB PO SCH ×4 (07:58→20:28)
[2021-02-21] MEDS: FLUTICASONE PROPIONATE NA SPR 16 GM BTL SCH (07:58)
[2021-02-21] MEDS: ASPIRIN 81 MG ECTAB PO SCH (07:59)
[2021-02-21] MEDS: FOLIC ACID 1 MG TAB PO SCH (07:59)
[2021-02-21] MEDS: PANTOprazole 40 MG TAB PO SCH (07:59)
[2021-02-21] MEDS: amLODIPine BESYLATE 5 MG TAB PO SCH (07:59)
[2021-02-21] MEDS: CYANOCOBALAMIN 500 MCG TABLET (VITAMIN B-12) PO SCH (07:59)
[2021-02-21] MEDS: lamoTRIgine 25 MG TAB PO SCH (08:00)
[2021-02-21] MEDS: SERTRALINE HCL 100 MG TABLET PO SCH (08:00)
[2021-02-21] MEDS: TAMSULOSIN HCL 0.4 MG CAP PO SCH (08:00)
[2021-02-21] MEDS: FAMOTIDINE 20 MG TAB PO SCH (08:01)
[2021-02-21] MEDS: FUROSEMIDE 20 MG TAB PO SCH (08:01)
--- NOTE | 2021-02-21 15:53 | Hospitalist Progress Note ---
Date of Service February 21, 2021 Assessment & Plan (1) Generalized weakness: Plan: 80-year-old male with history of COPD, chronic respiratory failure, on 2 L of oxygen, hypertension, CKD stage IV Recurrent syncope, generalized anxiety disorder, presenting with weakness x3 weeks. GENERALIZED WEAKNESS STATUS POST MECHANICAL FALL MRI of the brain showed no acute intracranial abnormality Lyme screen negative PT OT on board Recommending SNF placement Waiting for placement -insurance approval pending Electrolyte abnormality Potassium 3.3 and magnesium 1.4 Electrolyte replaced continue monitor electrolytes Abnormal UA Urine culture negative Ceftriaxone was discontinued Continue tamsulosin Folate deficiency Replaced with folic acid Abnormal TSH Elevated TSH and normal T4 Possible due t basically subclinical lower hypothyroidism given age repeat TFTs in 1 month HTN BP stable Continue Amlodipine 10mg and Furosemide 20mg Continue monitor BP BILATERAL LOWER EXTREMITY EDEMA On Lasix 20 mg daily--> hold for today in light of weakness, dry oral mucosa Echocardiogram: EF 55 to 60%, left ventricular systolic function is normal Doppler ultrasound: Negative for DVT Continue Lasix daily COPD Chronic respiratory failure on 2 L of oxygen History of obstructive sleep apnea Not in exacerbation Chest x-ray clear Continue O2 supplementation with 2 L via nasal cannula Not on BiPAP at home HYPERTENSION Continue amlodipine, aspirin CKD STAGE IV creatinine 1.6 Stable GENERAL ANXIETY DISORDER Continue Zoloft, Lamictal CODE STATUS: Full code per patient Disposition Waiting for placement to SNF Admission and Anticipated Discharge Date Admission Date: February 13, 2021 Subjective Patient was seen and examined for follow-up of generalized weakness Sitting in chair with no acute distress watching TV Denies chest pain, palpitation, dizziness, tremor Spoke to case management waiting for insurance approval Review of Systems Review of Systems: All systems reviewed & are unremarkable except as noted in Subjective Physical Exam Physical Exam: General- No acute distress Head- atraumatic Eyes- PERRL, EOMI, ENT- oropharynx clear Neck- supple, no JVD Lungs- +diminished nothing breath sound Heart- regular rhythm; no murmur Abdomen- normal bowel sounds, soft, nontender Extremities- no calf tenderness, trace edema Neuro- alert, oriented x 3; PERRL, EOMI; no facial palsy; no dysarthria Skin- warm & dry Results & Data Results & Data ([facility]) Vital Signs (Past 12 Hours) Vital Signs Temp Pulse Pulse Resp BP BP Pulse Ox 02/21/21 14:59 36.7 C 89 18 121/69 94 02/21/21 10:47 36.7 C 87 18 119/72 97 02/21/21 08:06 36.7 C 88 18 165/74 H 96 02/21/21 08:00 80
[2021-02-21] MEDS: MELATONIN 3 MG TAB PO PRN (22:16)
[2021-02-22] MEDS: LEVOTHYROXINE SODIUM 100 MCG TABLET PO SCH (05:35)
[2021-02-22] MEDS: FLUTICASONE PROPIONATE NA SPR 16 GM BTL SCH (08:06)
[2021-02-22] MEDS: lamoTRIgine 25 MG TAB PO SCH (08:06)
[2021-02-22] MEDS: FOLIC ACID 1 MG TAB PO SCH (08:06)
[2021-02-22] MEDS: FENOFIBRATE NANOCRYSTALLIZED 145 MG TABLET PO SCH (08:06)
[2021-02-22] MEDS: FUROSEMIDE 20 MG TAB PO SCH (08:07)
[2021-02-22] MEDS: amLODIPine BESYLATE 5 MG TAB PO SCH (08:07)
[2021-02-22] MEDS: ASPIRIN 81 MG ECTAB PO SCH (08:07)
[2021-02-22] MEDS: CYANOCOBALAMIN 500 MCG TABLET (VITAMIN B-12) PO SCH (08:07)
[2021-02-22] MEDS: FAMOTIDINE 20 MG TAB PO SCH (08:07)
[2021-02-22] MEDS: PANTOprazole 40 MG TAB PO SCH (08:07)
[2021-02-22] MEDS: TAMSULOSIN HCL 0.4 MG CAP PO SCH (08:07)
[2021-02-22] MEDS: POT PHOSPHATE MONOBASIC W/ SOD TAB PO SCH ×4 (08:07→21:00)
[2021-02-22] MEDS: SERTRALINE HCL 100 MG TABLET PO SCH (08:07)
--- NOTE | 2021-02-22 18:54 | Hospitalist Progress Note ---
Date of Service February 22, 2021 Assessment & Plan (1) Generalized weakness: Plan: 80-year-old male with history of COPD, chronic respiratory failure, on 2 L of oxygen, hypertension, CKD stage IV Recurrent syncope, generalized anxiety disorder, presenting with weakness x3 weeks. GENERALIZED WEAKNESS STATUS POST MECHANICAL FALL MRI of the brain showed no acute intracranial abnormality Lyme screen negative PT OT on board Recommending SNF placement Waiting for placement -insurance approval pending Electrolyte abnormality Potassium 3.6 and magnesium 1.9 Electrolyte replaced continue monitor electrolytes Abnormal UA Urine culture negative Ceftriaxone was discontinued Continue tamsulosin Folate deficiency Replaced with folic acid Abnormal TSH Elevated TSH and normal T4 Possible due t basically subclinical lower hypothyroidism given age repeat TFTs in 1 month HTN BP stable Continue Amlodipine 10mg and Furosemide 20mg Continue monitor BP BILATERAL LOWER EXTREMITY EDEMA On Lasix 20 mg daily--> hold for today in light of weakness, dry oral mucosa Echocardiogram: EF 55 to 60%, left ventricular systolic function is normal Doppler ultrasound: Negative for DVT Continue Lasix daily COPD Chronic respiratory failure on 2 L of oxygen History of obstructive sleep apnea Not in exacerbation Chest x-ray clear Continue O2 supplementation with 2 L via nasal cannula Not on BiPAP at home HYPERTENSION Continue amlodipine, aspirin CKD STAGE IV creatinine 1.6 Stable GENERAL ANXIETY DISORDER Continue Zoloft, Lamictal CODE STATUS: Full code per patient Disposition Waiting for placement to SNF COVID 19 negative Admission and Anticipated Discharge Date Admission Date: February 13, 2021 Subjective Patient was seen and examined for follow-up of generalized weakness Sitting in chair with no acute distress watching TV Spoke to case management said that said [facility] has a bed but does not want him to go there Denies chest pain, palpitation, dizziness, tremor Review of Systems Review of Systems: All systems reviewed & are unremarkable except as noted in Subjective Physical Exam Physical Exam: General- No acute distress Head- atraumatic Eyes- PERRL, EOMI, ENT- oropharynx clear Neck- supple, no JVD Lungs- +diminished nothing breath sound Heart- regular rhythm; no murmur Abdomen- normal bowel sounds, soft, nontender Extremities- no calf tenderness, trace edema Neuro- alert, oriented x 3; PERRL, EOMI; no facial palsy; no dysarthria Skin- warm & dry Results & Data Results & Data ([facility]) Vital Signs (Past 12 Hours) Vital Signs Temp Pulse Pulse Resp BP BP Pulse Ox 02/22/21 15:37 36.8 C 75 20 117/68 97 02/22/21 15:22 75 02/22/21 11:33 36.6 C 81 24 118/73 95 02/22/21 08:10 36.9 C 91 H 145/64 H 95 02/22/21 07:23 78
[2021-02-22] MEDS: MELATONIN 3 MG TAB PO PRN (21:02)
[2021-02-23] MEDS: LEVOTHYROXINE SODIUM 100 MCG TABLET PO SCH (06:41)
[2021-02-23] MEDS: FLUTICASONE PROPIONATE NA SPR 16 GM BTL SCH (07:37)
[2021-02-23] MEDS: FUROSEMIDE 20 MG TAB PO SCH (07:38)
[2021-02-23] MEDS: CYANOCOBALAMIN 500 MCG TABLET (VITAMIN B-12) PO SCH (07:38)
[2021-02-23] MEDS: FOLIC ACID 1 MG TAB PO SCH (07:38)
[2021-02-23] MEDS: lamoTRIgine 25 MG TAB PO SCH (07:38)
[2021-02-23] MEDS: FENOFIBRATE NANOCRYSTALLIZED 145 MG TABLET PO SCH (07:38)
[2021-02-23] MEDS: PANTOprazole 40 MG TAB PO SCH (07:39)
[2021-02-23] MEDS: SERTRALINE HCL 100 MG TABLET PO SCH (07:39)
[2021-02-23] MEDS: ASPIRIN 81 MG ECTAB PO SCH (07:39)
[2021-02-23] MEDS: POT PHOSPHATE MONOBASIC W/ SOD TAB PO SCH ×2 (07:39→12:32)
[2021-02-23] MEDS: TAMSULOSIN HCL 0.4 MG CAP PO SCH (07:39)
[2021-02-23] MEDS: FAMOTIDINE 20 MG TAB PO SCH (07:39)
[2021-02-23] MEDS: amLODIPine BESYLATE 5 MG TAB PO SCH (07:39)
--- NOTE | 2021-02-23 11:48 | Hospitalist Progress Note ---
Date of Service February 23, 2021 delayed entry date of service noted above Assessment & Plan (1) Generalized weakness: Plan: per Dr. Asencio's notes with addendum: 80-year-old male with history of COPD, chronic respiratory failure, on 2 L of oxygen, hypertension, CKD stage IV Recurrent syncope, generalized anxiety disorder, presenting with weakness x3 weeks. GENERALIZED WEAKNESS STATUS POST MECHANICAL FALL MRI of the brain showed no acute intracranial abnormality Lyme screen negative UTI ruled out no other focus of infection PT OT: Recommending SNF placement Electrolyte abnormality Potassium 3.6 and magnesium 1.9 Electrolyte replaced continue monitor electrolytes Abnormal UA Urine culture negative Ceftriaxone was discontinued Continue tamsulosin Folate deficiency Replaced with folic acid Abnormal TSH Elevated TSH and normal T4 Possible due to subclinical lower hypothyroidism given age repeat TFTs in 1 month HTN BP stable Continue Amlodipine 10mg and Furosemide 20mg monitor BILATERAL LOWER EXTREMITY EDEMA On Lasix 20 mg daily--> hold for today in light of weakness, dry oral mucosa Echocardiogram: EF 55 to 60%, left ventricular systolic function is normal Doppler ultrasound: Negative for DVT Continue Lasix daily COPD Chronic respiratory failure on 2 L of oxygen History of obstructive sleep apnea Not in exacerbation Chest x-ray clear Continue O2 supplementation with 2 L via nasal cannula Not on BiPAP at home HYPERTENSION Continue amlodipine, aspirin CKD STAGE IV creatinine 1.6 Stable GENERAL ANXIETY DISORDER Continue Zoloft, Lamictal CODE STATUS: Full code per patient Disposition SNF COVID 19 negative Admission and Anticipated Discharge Date Admission Date: February 13, 2021 Subjective Follow-up for weakness, etc. Seen resting in bed, comfortable, not in distress, in good spirits States he feels fine overall no chest pain, dyspnea, palpitations, dizziness No abdominal pain, nausea vomiting or fevers or chills No other symptoms States he is ready to be discharged Review of Systems Review of Systems: all noted and negative except for above Physical Exam Physical Exam: General- oriented x 3, not in distress, speaks in sentences with no effort or accessory muscle use Eyes- anicteric Neck- no JVD Lungs- clear breath sounds bilaterally, no rales/wheezes Heart- normal rate, regular rhythm; no murmurs Abdomen- normal bowel sounds, nondistended, soft, nontender Extremities- no pretibial edema, no calf tenderness Neuro- alert, oriented x 3; no gross focal neurologic deficits Skin- warm & dry Results & Data Results & Data ([facility]) Vital Signs (Past 12 Hours) Vital Signs Temp Pulse Pulse Resp BP Pulse Ox 02/23/21 11:01 37 C 84 18 128/69 96 02/23/21 07:09 36.5 C 84 18 157/72 H 95 02/23/21 07:04 77 02/23/21 03:31 36.8 C 84 18 138/70 95 all noted and reviewed including below
--- NOTE | 2021-02-23 11:49 | Discharge Summary ---
Date of Service February 23, 2021 Admission HPI Per Admitting Provider 80 year old with history of weakness, chronic respiratory failure on 2 L of oxygen, hypertension, CKD stage IV presenting with weakness x3 weeks. Patient was in his usual state of health until 3 weeks ago when he started to feel generally weak. Denies any fevers or chills problems with urination or bowel movement changes with chronic cough, shortness of breath, headache, dizziness, diarrhea. This is associated with poor appetite. Patient states weakness progressed to the point that he fell while walking after using the bathroom. He fell on his knees, but denies any presyncope, dizziness, chest pain, shortness of breath, palpitations. At the ER, patient was noted to have possible UTI on his urinalysis. Ceftriaxone IV started. On my exam, the patient was seen resting in bed, not in distress, comfortable. Denies active shortness of breath, chest pain, headache, dizziness, abdominal pain, nausea or vomiting. States he still feels weak. Denies other symptoms. Admission Exam (Per Admitting) Constitutional General- oriented x 3, not in distress, speaks in sentences with no effort or accessory muscle use Head- atraumatic Eyes- PERRL, EOMI, anicteric ENT- oropharynx clear Edentulous Positive oral thrush Dry oral mucosa Neck- supple, no JVD, no adenopathy, no thyromegaly; carotids +2/2, no bruits appreciated Lungs- clear to auscultation bilaterally, no rales/wheezes Heart- normal rate, regular rhythm; no murmur, no gallop, no rub appreciated Abdomen- normal bowel sounds, nondistended, soft, nontender, no masses or hepatosplenomegaly Extremities-positive mild lower extremity edema, no calf tenderness; peripheral pulses intact Neuro- alert, oriented x 3; CN 2-12 grossly intact; motor 4/5bilat erally;sensation 100% on all extremities; no other gross focal neurologic deficits Skin- warm & dry Discharge Data Consultations 02/13/21 09:09 ED Decision to Admit Stat 02/14/21 13:00 Consult Neurology Stat Procedures Performed XR chest 1V portable CLINICAL HISTORY: weakness. Evaluate cardiopulmonary status COMPARISON STUDY: 07/10/2018 TECHNIQUE: 1 view of the chest FINDINGS: Single frontal view of the chest demonstrates the cardiomediastinal silhouette to be within normal limits. There is again asymmetric elevation of the right hemidiaphragm with crowding the bronchovascular markings at the right lung base. The lungs are clear of alveolar opacities. There is no evidence for pleural effusion. There is no evidence for vascular congestion. There is no acute osseous pathology. IMPRESSION: No acute cardiopulmonary disease. ACT 112: Negative or not required by law. Electronically signed by: Sachin Terrazas M.D. 02/13/2021 8:30 AM BILATERAL LOWER EXTREMITY VENOUS DOPPLER HISTORY: Bilateral leg edema, r/o dvt COMPARISON STUDY: None. FINDINGS: There is normal compressibility, flow, and augmentation within the bilateral lower extremity deep venous systems. IMPRESSION: No DVT within the right or left lower extremity. ACT 112: Negative or not required by law. Electronically signed by: Marko France M.D. 02/14/2021 11:23 AM MRI OF THE BRAIN WITHOUT IV CONTRAST CLINICAL HISTORY: Generalized weakness. Numbness. COMPARISON STUDY: CT of the brain dated 07/10/2018. TECHNIQUE: MRI of the brain was performed utilizing various T1 and T2-weighted sequences in the axial, sagittal, and coronal planes. IV contrast was not administered for this examination. FINDINGS: Brain parenchyma: There is age-related involutional change noting mild to moderate subcortical and periventricular microangiopathic disease. There is no hemorrhage or mass effect. There is no restricted diffusion to suggest acute ischemia. Bear-white matter differentiation is preserved. No extra-axial fluid collection is seen. The cerebellar tonsils are normal in configuration. Ventricles, sulci, and cisterns: Prominent secondary to involutional change. Cavum septum pellucidum is incidentally noted. Pituitary and sella: Unremarkable. Intracranial vasculature: Normal flow voids are maintained at the skull base. Orbits: The bony orbits are grossly intact. Orbital contents are normal in appearance. Sinuses and mastoids: There is a left mastoid effusion. The right mastoid air cells and the paranasal sinuses are clear. Calvarium: Unremarkable. Cervical cord: Partially visualized cervical spinal cord is normal in morphology and signal intensity. IMPRESSION: No acute intracranial abnormality. ACT 112: Negative or not required by law. Electronically signed by: Luke Villalta M.D. 02/14/2021 8:23 PM Hospital Course (1) Generalized weakness: 80-year-old male with history of COPD, chronic respiratory failure, on 2 L of oxygen, hypertension, CKD stage IV Recurrent syncope, generalized anxiety disorder, presenting with weakness x3 weeks. GENERALIZED WEAKNESS STATUS POST MECHANICAL FALL MRI of the brain showed no acute intracranial abnormality Lyme screen negative PT OT on board Recommending SNF placement Waiting for placement -insurance approval pending Electrolyte abnormality Potassium 3.6 and magnesium 1.9 Electrolyte replaced continue monitor electrolytes Abnormal UA Urine culture negative Ceftriaxone was discontinued Continue tamsulosin Folate deficiency Replaced with folic acid Abnormal TSH Elevated TSH and normal T4 Possible due t basically subclinical lower hypothyroidism given age repeat TFTs in 1 month HTN BP stable Continue Amlodipine 10mg and Furosemide 20mg Continue monitor BP BILATERAL LOWER EXTREMITY EDEMA On Lasix 20 mg daily--> hold for today in light of weakness, dry oral mucosa Echocardiogram: EF 55 to 60%, left ventricular systolic function is normal Doppler ultrasound: Negative for DVT Continue Lasix daily COPD Chronic respiratory failure on 2 L of oxygen History of obstructive sleep apnea Not in exacerbation Chest x-ray clear Continue O2 supplementation with 2 L via nasal cannula Not on BiPAP at home HYPERTENSION Continue amlodipine, aspirin CKD STAGE IV creatinine 1.6 Stable GENERAL ANXIETY DISORDER Continue Zoloft, Lamictal CODE STATUS: Full code per patient Disposition Waiting for placement to SNF COVID 19 negative
== END 2021-02-23 13:11 ==
LOC: ED 02:35 → EDINP 12:28 → INTOOBSV 12:28 → SUATTDRO 12:28 → 2N 17:18